=== PATIENT | female | born 1995 | race Caucasian/White ===

== ENCOUNTER → 2017-06-27 15:18 | Outpatient (CLI) | payer MEDICAID, SELFPAY ==
--- NOTE | 2017-06-27 15:23 | EKG12_ITS ---
Test Reason : T1DM Blood Pressure : / mmHG Vent. Rate : 075 BPM Atrial Rate : 075 BPM P-R Int : 142 ms QRS Dur : 084 ms QT Int : 366 ms P-R-T Axes : 046 035 029 degrees QTc Int : 408 ms Normal sinus rhythm Normal ECG Confirmed by PRUDENCIO CRUZ, CHANO ([id number]), online content editor NITZA CHOI ([id number]) on 06/28/2017 1:54:55 PM Referred By: JANAY WALLACE Confirmed By:CHANO FLANNERY MD
== END ==
PROVIDERS: Family Provider Family Medicine; PCP Family Medicine
DX: E10.9 Type 1 diabetes mellitus without complications (principal)
CPT/HCPCS: 93005

== ENCOUNTER → 2017-07-06 16:23 | Outpatient (CLI) | payer MEDICAID, SELFPAY ==
[2017-07-06 18:19] LABS: Absolute Lymphocyte Count 1.69 X10^3/ul (0.83-4.51); Absolute Neutrophil Count 6.6 X10^3/uL (2.0-7.7); Basophil# 0.01 X10^3/uL; Basophil% 0.1 % (0-1); Eosinophil# 0.09 X10^3/uL; Hematocrit 36.1 % (37-47); Lymphocyte # 1.69 X10^3/ul (4.0); Mean Corp Hgb Conc 33.2 g/gl (32-36); Mean Corpuscular Hgb 28.1 pg (27.0-32.0); Mean Corpuscular Volume 84.5 fL (81-99); Mean Platelet Vol. 10.6 fl (6.2-12.0); Monocyte# 0.44 X10^3/uL; Monocyte% 4.9 % (0-10); Neutrophil # 6.63 X10^3/uL (2.7-7.7); Neutrophil % 74.7 % (47-70); Platelet Count 299 K/mm3 (150-450); RBC Distribution Width SD 42.4 fl (35.1-43.9); Red Blood Count 4.27 M/mm3 (4.2-5.4); White Blood Count 8.9 K/mm3 (4.4-11.0)
[2017-07-06 18:20] LABS: Color, Urine Yellow (Yellow); Glucose, Dipstick 250 mg/dl (Normal); Ketone-Dipstick Negative (Negative); Leukocyte Esterase-Dipstick 500 /ul (Negative); Nitrite-Dipstick Negative (Negative); Occult Blood-Urine 10 /ul (Negative); Protein-Dipstick 15 mg/dl (Negative); Specific Gravity, Urine 1.025 (1.002-1.030); Urine Bilirubin Dipstick Negative (Negative); Urine Clarity Cloudy (Clear); Urine Urobilinogen Normal (Normal)
[2017-07-06 18:26] LABS: POSITIVE COUNT NO; POSITIVE DIFFERENTIAL NO; POSITIVE MORPHOLOGY NO
[2017-07-06 18:37] LABS: COTININE Drug Screen Negative (<200 ng/mL); Free T3 2.3 pg/mL (2.18-3.98); T4 Free Direct 0.92 ng/dL (0.76-1.46); Thyroid Stim Hormone (TSH) 2.23 uIU/mL (0.358-3.74)
[2017-07-06 18:47] LABS: Amphetamine Urine VISTA NEGATIVE (<1000 ng/mL); Barbiturate Urine VISTA NEGATIVE (< 200 ng/mL); Benzodiazepine Urine VISTA NEGATIVE (< 200 ng/mL); Cocaine Urine VISTA NEGATIVE (< 300 ng/mL); Ecstacy Urine VISTA NEGATIVE (< 500 ng/mL); Methadone Urine VISTA NEGATIVE (< 300 ng/mL); PCP Urine VISTA NEGATIVE (< 25 ng/mL); THC Urine VISTA NEGATIVE (< 50 ng/mL); Vista UDS pH Range 5
[2017-07-06 19:33] LABS: HIV - WCH Non-Reactive (Nonreactive); Rubella IgG 27.7 IU/mL
[2017-07-06 21:31] LABS: Chlamydia Trachomatis by PCR POSITIVE (Negative); Neisserai gonorrhoeae by PCR Negative (Negative)
[2017-07-06 21:32] LABS: Probe Check PASS
[2017-07-08 07:08] LABS: Prenatal RPR NONREACTIVE (NONREACTIVE)
[2017-07-08 14:59] LABS: HEPATITIS B SURFACE AG Negative (Negative); Hep C Antibodies <0.1 s/co ratio (0.0-0.9)
[2017-07-11 15:41] LABS: HPV Reflexed? NOT INDICATED
== END ==
PROVIDERS: Visit Provider Obstetrics & Gynecology
DX: Z34.82 Encounter for supervision of other normal pregnancy, second trimester (principal); Z32.01 Encounter for pregnancy test, result positive; Z11.3 Encounter for screening for infections with a predominantly sexual mode of transmission; Z3A.00 Weeks of gestation of pregnancy not specified
CPT/HCPCS: 36415; 80307; 81002; 84439; 84443; 84481; 85025; 86703; 86762; 86803; 87340; 87491; 87591; 88175; G0145

== ENCOUNTER → 2017-08-23 13:54 | Outpatient (CLI) | payer MEDICAID, SELFPAY ==
[2017-08-23 17:33] LABS: Chlamydia Trachomatis by PCR Negative (Negative); Neisserai gonorrhoeae by PCR Negative (Negative); Probe Check PASS; Sample Adequacy Control PASS; Specimen Processing Control PASS
== END ==
PROVIDERS: Visit Provider Obstetrics & Gynecology
DX: Z11.3 Encounter for screening for infections with a predominantly sexual mode of transmission (principal); Z86.19 Personal history of other infectious and parasitic diseases
CPT/HCPCS: 87491; 87591

== ENCOUNTER 2017-11-25 18:28 | Emergency (ER) | payer MEDICAID, SELFPAY ==
[2017-11-25 18:29] VITALS: BP 130/79; PULSE 89; RESP 18; TEMP 36.9; O2SAT 99; BMI 31.6
--- NOTE | 2017-11-25 18:39 | ED.RN ---
CALLED FOR EKG PER RN REQUEST, PULLED OLD EKG'S FOR
--- NOTE | 2017-11-25 19:02 | EKG12_ITS ---
Test Reason : CP Blood Pressure : / mmHG Vent. Rate : 136 BPM Atrial Rate : 136 BPM P-R Int : 120 ms QRS Dur : 064 ms QT Int : 286 ms P-R-T Axes : 042 026 028 degrees QTc Int : 430 ms Sinus tachycardia Otherwise normal ECG Confirmed by ADEEL CRUZ, OJ ([id number]), research editor NITZA CHOI ([id number]) on 11/29/2017 1:50:24 PM Referred By: TAMIKA Confirmed By:OJ DEINS MD
--- NOTE | 2017-11-25 19:04 | ED.RN ---
upon arrival to er, pt states that discharge and pain were typical pain and discharge, pt also stated i don't think i am going into labor, i am having chest pain and shortness of breath. because of these complaints pt was checked into er to be evaluated.
[2017-11-25 19:14] LABS: Absolute Lymphocyte Count 1.58 X10^3/ul (0.83-4.51); Absolute Neutrophil Count 6.9 X10^3/uL (2.0-7.7); Basophil# 0.01 X10^3/uL; Basophil% 0.1 % (0-1); Eosinophil# 0.09 X10^3/uL; Hematocrit 30.4 % (37-47); Hemoglobin 9.6 g/dl (12.0-15.0); Lymphocyte # 1.58 X10^3/ul (4.0); Lymphocyte % 17.2 % (19-41); Mean Corp Hgb Conc 31.6 g/gl (32-36); Mean Corpuscular Hgb 22.7 pg (27.0-32.0); Mean Corpuscular Volume 71.9 fL (81-99); Mean Platelet Vol. 11.7 fl (6.2-12.0); Monocyte# 0.56 X10^3/uL; Monocyte% 6.1 % (0-10); Neutrophil # 6.89 X10^3/uL (2.7-7.7); Neutrophil % 75.3 % (47-70); Platelet Count 216 K/mm3 (150-450); RBC Distribution Width CV 13.9 % (11.6-14.6); RBC Distribution Width SD 35.5 fl (35.1-43.9); Red Blood Count 4.23 M/mm3 (4.2-5.4); White Blood Count 9.2 K/mm3 (4.4-11.0)
[2017-11-25 19:16] LABS: Differential Indicated SCAN CRITERIA MET; POSITIVE COUNT NO; POSITIVE DIFFERENTIAL NO; POSITIVE MORPHOLOGY YES
--- NOTE | 2017-11-25 19:20 | RAD_ITS ---
STUDY: X-RAY CHEST REASON FOR EXAM: Female, 22 years old. Chest pain TECHNIQUE: Frontal view of the chest COMPARISON: 09/10/2016 FINDINGS: The lungs are clear. There are no pleural effusions. There is no pneumothorax. The heart is normal in size. The visualized osseous structures are within normal limits. RAD/Chest 1 View (Portable) IMPRESSION: No acute thoracic pathology. Electronically Signed: Dre Maki, at 19:53 EDT Tel , Service support ,
[2017-11-25 19:21] LABS: D-Dimer Quantitative (DVT/PE) 1.14 FEU/ug/m (0.27-0.49)
--- NOTE | 2017-11-25 19:21 | ED.RN ---
MD AWARE OF D-DIMER 1.14.
[2017-11-25 19:31] LABS: Anion Gap 9 (5-15); BUN 8 mg/dL (7-18); BUN/Creat Ratio 15.8 RATIO (10-20); Calcium,Total 8.4 mg/dL (8.5-10.1); Chloride 106 mmol/L (98-107); Creatinine, Serum 0.51 mg/dL (0.55-1.02); EST Glomerular Filtration Rate 160 mL/min (>60); Est Glom Filt Rate - Afr Amer 194 mL/min (>60); Estimated Creatinine Clearance 168.26 ml/min; Glucose 120 mg/dL (74-106); Potassium 3.9 mmol/L (3.5-5.1); Sodium Level 139 mmol/L (136-145)
[2017-11-25 19:43] LABS: Differential Comment SCANNED
[2017-11-25 19:44] LABS: Anisocytosis 1+; Hypochromasia RARE; Microcytosis 1+; Polychromasia RARE
[2017-11-25 19:49] LABS: BNP,B-Type NATRIURETIC PEPTIDE 57.4 pg/mL (0-100)
[2017-11-25] MEDS: 0.9% Normal Saline 1,000 ML 150 ML IV (19:51)
[2017-11-25 20:00] VITALS: BP 113/78; PULSE 88; RESP 18; O2SAT 92
--- NOTE | 2017-11-25 20:18 | CT_ITS ---
STUDY: CTA CHEST REASON FOR EXAM: Female, 22 years old. Pain. Evaluate for pulmonary and was. RADIATION DOSAGE (If Supplied By Facility): CTDIvol = ( 15.61 ) mGy, DLP = ( 594.91 ) mGycm TECHNIQUE: The examination was performed with the intravenous administration of 100 ml of Isovue 370 contrast material. Post-processing of the angiographic images was performed, with multiplanar reformation and 3D reconstruction. Individualized dose optimization techniques were used for this CT. COMPARISON: None. FINDINGS: There are no filling defects within the pulmonary arteries to suggest pulmonary embolus. There is no evidence of thoracic aortic aneurysm or dissection. The heart and pericardium are within normal limits. There is no thoracic lymphadenopathy. There is a trace right pleural effusion. There is no left-sided effusion. There are no pulmonary infiltrates. There is no pneumothorax. Images through the upper abdomen demonstrate a soft tissue mass in the mid abdomen and this may represent an enlarged uterus. Correlation with the patient's history is recommended. There is a small hiatal hernia. There are no destructive osseous lesions. CT/CTA Chest W/WO Contrast IMPRESSION: No evidence of pulmonary embolus. No evidence of thoracic aortic aneurysm or dissection. Trace right pleural effusion. Otherwise, clear lungs. Soft tissue mass in the abdomen which is not fully visualized on this study. This may represent an enlarged uterus and correlation with the patient's history is recommended. Small hiatal hernia. Electronically Signed: Dre Maki, at 21:01 EDT Tel , Service support ,
--- NOTE | 2017-11-25 20:46 | SUR.OPER ---
At 1937 this RN in to see patient, placed on EFM and pt placed in semi fowlers position. Pt to L side at 194 due to minimal variability. Variability remains minimal but movement audible. 1952 pt moved to right side for continued minimal variability, which became moderate. Pt catherine q2-4 minutes, palpating mild per this RN. Pt reports that pain at worst 6-10 and able to converse with nurse and family without pausing or grimacing. Pt reports good movement and states she has had plenty of water to drink today. At 2009, call placed to Dr. Steele-informed of minimal variability which became moderate with position change. FHR baseline of 125 and NST reactive. Informed that contractions every 2-4 minutes and palpating mild and pt rating 6/10. Dr. Steele states that ED should continue care of pt and if pt cleared and still having painful contractions, she may come to OB and continue to be monitored.
--- NOTE | 2017-11-25 20:49 | NURSING ---
@1902 Dr Steele called unit, patient in ER for chest pain. Orders recieved for RN to take monitor up and obtain reactive NST at this time. Monitor contraction pattern and report to doctor.
[2017-11-25 21:10] VITALS: BP 106/79; PULSE 84; RESP 18; O2SAT 96
--- NOTE | 2017-11-25 22:10 | ED.VISSUMM ---
- ER Visit Summary Date of Service: 11/25/17 Chief Complaint: Chest pain and History of Present Illness: The patient is a [address] Romero and Dr. Vu. She reports that she has chest pain that began this morning. It is a stabbing calming cramping pain that lasts hours at a time. Is 7 out of 10 worst 510 currently. Is worsened by movement of her arm or her toes or so. Does not seem to be worsened by deep breathing. She reports is relieved by laying down. She reports pain makes her nauseated, but she has not vomited. Also made her short of breath and sweaty. Patient denies any family or personal history of DVT. No ankle swelling or calf pain. Patient is a at 35 weeks and 3 days . She reports that she has abdominal cramping that comes and goes. Last approximately 60 seconds and occurs every 7-10 minutes. She reports that she has had a white discharge from since this morning as well. She denies any gush of water or break of her fluid. Physical Examination: Vitals: Stable. Afebrile. General: Well-nourished and well-developed. Head: Normocephalic atraumatic. Neck: Supple, no lymphadenopathy. No JVD. Nontender. Cardiovascular: Regular rate and rhythm. No murmurs. Respiratory: No respiratory distress. Clear to auscultation bilaterally. Breast exam: Approximately 4 cm in diameter mass in the left breast left lower quadrant. There is no surrounding erythema, induration, or tenderness to palpation to suggest an infectious etiology. Abdominal: Soft, nontender, nondistended, normal bowel sounds. No guarding, rebound, or peritoneal signs. Gravid uterus. Back: Nontender. Extremities: Nontender, no edema. Skin: Normal color, no rash. Neurologic: Alert and oriented ?3. Cranial nerves II through XII are intact. Normal strength and sensation. Psych: Normal affect. Test Results: Chest x-ray is normal. EKG is sinus tach at 136 with no acute changes. Troponin is negative. PT HAND [employer]ANER is 57.4. D-dimer is 1.14. Chem-7 is more for creatinine 0.51, glucose 120, calcium of 8.4. CBC is marked for an H&H 9.6 and 30.4, segmented neutrophils 75, lymphs at 17. CTA of the chest shows a trace right pleural effusion. No evidence of PE or dissection. Emergency Department Course and Treatment: Patient reports that she had a mammogram for this mass in her left breast approximately 1 year ago. It seems to have increased in size throughout her . States that she has not talked to Dr. Iverson about this. Patient was discussed with Dr. Steele and has been monitored in the emergency department by labor and delivery. Treatment Plan: Patient reports that the abdominal cramping that she had is essentially resolved. She will be discharged instructions to use Tylenol for pain. Return for worsening abdominal pain. Follow-up with Dr. Iverson as previously scheduled. Speak with him about the mass in her left breast in the further evaluation of this. Disposition: To home in improved and stable condition. Impression: 1. Atypical chest pain. 2. Third trimester . 3. Left breast mass. This note was generated with [employer] dictation software. It may contain incorrect words, spelling, and punctuation that were not noted in review of the chart prior to signing ED Disposition - Plan for ED Patient: Disposition: Home or Assisted Living Chief Complaint: Chest Pain Instructions: ED Breast Mass Uncertain Cause, ED Chest Pain Atypical Unkn Cause Referrals: Abilio Iverson MD [STAFF PHYSICIAN] - Keep Arthur appointment
[2017-11-25 22:20] VITALS: BP 116/70; PULSE 70; RESP 14; O2SAT 99
--- NOTE | 2017-11-26 06:26 | OB.TRI.NOTE ---
History of Present Illness Date of Service: 11/25/17 Was patient seen by the physician?: No Reason For Visit: CHEST PAIN Date of Service: 11/25/17 Final RADHA Source: US <20 weeks Gestational age: 35 3/7 wk History of Present Illness: 22 yo gravid female presented to [facility] ED with CC of chest pain. Evaluated there for chest pain and workup neg for PE. All work up for chest pain negative. Also c/o abdominal pain, cramping. Nurse from OB dept sent to monitor for NST, and labor. Allergies No Known Allergies Allergy (Verified 11/25/17 18:32) Physical Exam Vitals: Vital Signs Temp Pulse Resp BP Pulse Ox 98.5 F 70 14 116/70 99 11/25/17 18:29 11/25/17 22:20 11/25/17 22:20 11/25/17 22:20 11/25/17 22:20 NST - FHR Rate Baby A Variability:: Moderate Accelerations:: 10 x 10 Decelerations:: None, Early NST Reactive:: Yes, Appropriate for gestational age FHR Category:: Category I Uterine Activity:: irregular UCs, mild. uterine irritability. Impression/Plan 35 3/7 wk EGA Chest pain, neg workup. reactive NST False labor, irreg and mild UCs. Offered pt to go to OB dept for continued monitoring for labor, or may go home and rest, tylenol or tylenol pm for pain and rest. Elected to go home Keep next ofc appt with Dr. Iverson. return to [facility] if increased signs /symptoms of labor.
--- NOTE | 2017-11-26 06:31 | OB.TRI.HP_ITS ---
History of Present Illness Date of Service: 11/25/17 Was patient seen by the physician?: No Reason For Visit: CHEST PAIN Date of Service: 11/25/17 Final RADHA Source: US <20 weeks Gestational age: 35 3/7 wk History of Present Illness: 22 yo gravid female presented to [facility] ED with CC of chest pain. Evaluated there for chest pain and workup neg for PE. All work up for chest pain negative. Also c/o abdominal pain, cramping. Nurse from OB dept sent to monitor for NST, and labor. Allergies No Known Allergies Allergy (Verified 11/25/17 18:32) Physical Exam Vitals: Vital Signs Temp Pulse Resp BP Pulse Ox 98.5 F 70 14 116/70 99 11/25/17 18:29 11/25/17 22:20 11/25/17 22:20 11/25/17 22:20 11/25/17 22:20 NST - FHR Rate Baby A Variability:: Moderate Accelerations:: 10 x 10 Decelerations:: None, Early NST Reactive:: Yes, Appropriate for gestational age FHR Category:: Category I Uterine Activity:: irregular UCs, mild. uterine irritability. Impression/Plan 35 3/7 wk EGA Chest pain, neg workup. reactive NST False labor, irreg and mild UCs. Offered pt to go to OB dept for continued monitoring for labor, or may go home and rest, tylenol or tylenol pm for pain and rest. Elected to go home Keep next ofc appt with Dr. Iverson. return to [facility] if increased signs /symptoms of labor.
== END 2017-11-25 22:21 | disposition home or self-care (01) ==
PROVIDERS: Emergency Provider Emergency Medicine; Family Provider Family Medicine; PCP Family Medicine
DX: O47.03 False labor before 37 completed weeks of gestation, third trimester (principal); R07.89 Other chest pain; O92.29 Other disorders of breast associated with pregnancy and the puerperium; R06.00 Dyspnea, unspecified; R11.0 Nausea; O24.013 Pre-existing type 1 diabetes mellitus, in pregnancy, third trimester; E10.9 Type 1 diabetes mellitus without complications; Z79.4 Long term (current) use of insulin; Z3A.35 35 weeks gestation of pregnancy
CPT/HCPCS: 71045; 71275; 80048; 83880; 84484; 85025; 85379; 93005; 96360; 96361; 99284; J7030; Q9967; A4216

== ENCOUNTER → 2017-11-30 11:47 | Outpatient (CLI) | payer MEDICAID, SELFPAY ==
[2017-11-30 17:13] LABS: Group B Strep DNA By PCR POSITIVE (Negative); Probe Check PASS
== END ==
PROVIDERS: Visit Provider Obstetrics & Gynecology
DX: Z36.85 Encounter for antenatal screening for Streptococcus B (principal)
CPT/HCPCS: 87653

== ENCOUNTER 2017-12-04 00:40 | Outpatient (CLI) | payer MEDICAID, SELFPAY ==
[2017-12-04 01:07] VITALS: BMI 33.9
[2017-12-04 01:34] LABS: ROM Internal Control Test YES-OK TO RESULT pt. (Internal QC); ROM Patient Test Negative (Negative)
--- NOTE | 2017-12-04 19:19 | OB.TRI.NOTE ---
History of Present Illness Date of Service: 12/04/17 Was patient seen by the physician?: No Reason For Visit: R/O LABOR Date of Service: 12/04/17 Final RADHA: 12/27/17 Final RADHA Source: US <20 weeks Gestational age: 36 Weeks and 5 Days History of Present Illness: 36+ week intrauterine with type 1 diabetes presents with contractions to labor and delivery to rule out labor. care also remarkable for bipolar disorder. Her type 1 diabetes is typically poorly controlled. Allergies No Known Allergies Allergy (Verified 11/25/17 18:32) NST - FHR Rate Baby A NST Reactive:: Yes FHR Category:: Category I Impression/Plan 36+ week intrauterine with transient labor. Has type 1 diabetes and comfortable with mild contractions noted on monitor but no cervical change after observation. Reactive nonstress test, patient wants to go home. Will release with routine instructions and follow-up.
== END 2017-12-04 01:50 | disposition home or self-care (01) ==
LOC: WPOUT 01:05 → WP 01:06
PROVIDERS: Family Provider Family Medicine; PCP Family Medicine; Visit Provider Obstetrics & Gynecology
DX: O24.013 Pre-existing type 1 diabetes mellitus, in pregnancy, third trimester (principal); E10.9 Type 1 diabetes mellitus without complications; O99.343 Other mental disorders complicating pregnancy, third trimester; F31.9 Bipolar disorder, unspecified; Z79.82 Long term (current) use of aspirin; Z79.4 Long term (current) use of insulin; Z79.899 Other long term (current) drug therapy; Z3A.36 36 weeks gestation of pregnancy
CPT/HCPCS: 59025; 59050; 84112; 99218; G0378

== ENCOUNTER 2017-12-07 10:10 | Inpatient (IN) | payer MEDICAID, SELFPAY ==
[2017-12-07] VITALS (16 sets, daily range): BP systolic 99–147; BP diastolic 49–80; PULSE 63–78; RESP 14–20; TEMP 35.9–37; O2SAT 96–100; BMI 34.1
[2017-12-07] MEDS: Lactated Ringers 1,000 ML 999 ML IV (10:40)
[2017-12-07 11:00] LABS: Bedside Glucose 178 mg/dL (70-110)
--- NOTE | 2017-12-07 11:09 | OP.PCM_ITS ---
Problem List (1) Type 1 diabetes mellitus affecting in third trimester, antepartum Status: Chronic Report of Operation Date of Procedure: 12/07/17 Pre-Operative Diagnosis: Poorly controlled Type 1 diabetes affecting , suspected macrosomia Post-Operative Diagnosis: Same Surgery/Procedure Performed:: Primary Low Transverse Section Description of Surgical Findings:: Polyhydramnios noted. Live female in vertex presentation. weight 4235 grams (9lbs 5 oz). Apgars 8/8. Normal appearing uterus, ovaries, and fallopian tubes. film touch up inspector: Elsa Rios Type of Anesthesia:: Spinal Anesthesiologist: Dane Adhikari Special Medications: none Specimen's removed: placenta Drains: rashid Estimated Blood Loss (mL): 600cc Fluids Replaced: 1500cc LR Description of Procedure: Chelsey was scheduled for a primary delivery secondary to poorly controlled Type 1 diabetes and suspected macrosomia with latest ultrasound showing fetus at greater than 4500 grams estimated weight. She understands the indications for this delivery and the risks and benefits of same. She was taken to the OR with IV running. She was given 2 grams of Ancef intravenously prior to the procedure. Spinal anesthesia was then introduced without complication. She was then prepped and draped in the supine position with a leftward tilt. A rashid catheter was placed. SCDs were in place and operational from preop through the case and into recovery. Once anesthesia was deemed adequate she a Pfannensteil skin incision was made approximately 2 cm above the symphysis pubis. The underlying subcutaneous tissue was dissected down to the level of the fascia using blunt and sharp dissection. The fascia was then incised in the midline and this incision was extended bilaterally using the Diehl scissors. The upper portion of the fascia was then grasped with two Marlen clamps elevated and the rectus muscles dissected off with sharp and blunt dissection. In a similar fashion the rectus muscles were dissected off the lower fascia. The rectus muscles were then in the midline, the peritoneum identified and entered sharply. The peritoneal defect was enlarged using blunt retraction. A bladder blade was then placed. The vesicouterine peritoneum was then entered sharply and a bladder flap created. The bladder blade was then replaced. The lower uterine incision was then incised in a transverse fashion. Once the cavity was entered this defect was extended using blunt lateral and superior traction. The bladder blade was removed and the baby's head was delivered atraumatically followed by the body. Delayed cord clamping was employed. The nose and mouth were suctioned with a bulb suction and the baby was handed off to the waiting nursing staff for evaluation. The placenta was then delivered manually. The uterus was exteriorized and cleared of all clot and membranes. The uterine incision was then closed in two layers with #1 Vicryl suture. The posterior cul de sac and gutters were cleared of all clot and fluid. The uterus was returned to the abdomen. The uterine incision was reinspected and found to be hemostatic. The peritoneum was then closed with 2-0 Vicryl. The rectus muscles were reapproximated with 0- Vicryl. The fascia was then closed with #1 Stratofix suture. The subcutaneous tissue was closed with a running stitch of 2 -0 Vicryl. The skin was closed with a subcuticular stitch of 4-0 Monocryl. Grafts/Implants Used: none - Complications none - Admit VTE Documentation VTE Present on Admission: No VTE Mechan Device Prophylaxis: SCD's VTE Pharm Prophylaxis ordered?: No
[2017-12-07 11:10] LABS: Absolute Lymphocyte Count 2.42 X10^3/ul (0.83-4.51); Basophil# 0.02 X10^3/uL; Basophil% 0.2 % (0-1); Eosinophil# 0.16 X10^3/uL; Eosinophils% 1.5 % (0-5); Hematocrit 29.7 % (37-47); Hemoglobin 9.1 g/dl (12.0-15.0); Lymphocyte # 2.42 X10^3/ul (4.0); Lymphocyte % 23.2 % (19-41); Mean Corp Hgb Conc 30.6 g/gl (32-36); Mean Corpuscular Hgb 21.6 pg (27.0-32.0); Mean Corpuscular Volume 70.5 fL (81-99); Mean Platelet Vol. 11.9 fl (6.2-12.0); Monocyte# 0.77 X10^3/uL; Monocyte% 7.4 % (0-10); Neutrophil # 7.02 X10^3/uL (2.7-7.7); Neutrophil % 67.1 % (47-70); Platelet Count 222 K/mm3 (150-450); RBC Distribution Width CV 14.6 % (11.6-14.6); RBC Distribution Width SD 36.1 fl (35.1-43.9); Red Blood Count 4.21 M/mm3 (4.2-5.4); White Blood Count 10.5 K/mm3 (4.4-11.0)
[2017-12-07 11:11] LABS: Differential Indicated SCAN CRITERIA MET; POSITIVE COUNT NO; POSITIVE DIFFERENTIAL NO; POSITIVE MORPHOLOGY YES
--- NOTE | 2017-12-07 11:18 | NURSING ---
Accucheck 178 dr bhakta aware no orders for at this time
[2017-12-07 11:27] LABS: International Normalized Ratio 0.9; Partial Thromboplast Time 25.8 Seconds (24.1-36.2); Prothrombin Time (Protime)PT. 12.4 SECONDS (11.7-14.9)
[2017-12-07] MEDS: Lactated Ringers 1,000 ML 150 ML IV (11:50)
[2017-12-07] MEDS: Sodium Citrate/Citric Acid 30 ML UDC PO (11:58)
[2017-12-07] MEDS: Cefazolin 2 GM in 0.9% Normal Saline 100 ML IV (11:59)
[2017-12-07] MEDS: Oxytocin 30 units/NS 500 ml 30 UNITS/500 ML IV.SOLN 167 UNITS IV (12:38)
[2017-12-07] MEDS: Insulin NPH Human 100 UNITS/ML PEN 40 UNITS SC ×2 (14:06→21:45)
[2017-12-07] MEDS: Lactated Ringers 1,000 ML 100 ML IV (14:44)
[2017-12-07 14:46] LABS: Bedside Glucose 177 mg/dL (70-110)
--- NOTE | 2017-12-07 14:49 | NURSING ---
accucheck 189
[2017-12-07 14:55] LABS: Bedside Glucose 189 mg/dL (70-110)
[2017-12-07] MEDS: Insulin Lispro 100 UNIT/ML INSULN.PEN 10 UNIT SC (16:02)
--- NOTE | 2017-12-07 16:40 | NURSING ---
up in wheel chair to go to see baby in scn
--- NOTE | 2017-12-07 17:55 | NURSING ---
taken to to special care to see baby, tolerated well
[2017-12-07] MEDS: Ondansetron ODT 4 MG Tablet PO (18:07)
[2017-12-07] MEDS: Ketorolac 30 MG/ML Syringe IV (18:51)
[2017-12-07] MEDS: Cefazolin 1 GM/50 ML BAG IV (19:48)
[2017-12-07 22:00] LABS: Bedside Glucose 134 mg/dL (70-110)
[2017-12-08] VITALS (12 sets, daily range): BP systolic 109–129; BP diastolic 68–86; PULSE 67–92; RESP 14–18; TEMP 36.1–37; O2SAT 94–100
[2017-12-08] MEDS: Ketorolac 30 MG/ML Syringe IV ×4 (01:20→17:47)
[2017-12-08] MEDS: Lactated Ringers 1,000 ML 100 ML IV (01:21)
[2017-12-08] MEDS: 0.9% Saline Lock 10 ML Syringe IV ×4 (01:21→23:42)
[2017-12-08] MEDS: Cefazolin 1 GM/50 ML BAG IV (03:50)
[2017-12-08 06:09] LABS: Hematocrit 26.1 % (37-47); Mean Corp Hgb Conc 30.7 g/gl (32-36); Mean Corpuscular Hgb 21.9 pg (27.0-32.0); Mean Corpuscular Volume 71.3 fL (81-99); Mean Platelet Vol. 10.7 fl (6.2-12.0); Platelet Count 208 K/mm3 (150-450); RBC Distribution Width CV 14.4 % (11.6-14.6); RBC Distribution Width SD 35.9 fl (35.1-43.9); Red Blood Count 3.66 M/mm3 (4.2-5.4); White Blood Count 9.7 K/mm3 (4.4-11.0)
[2017-12-08 06:11] LABS: Scan Indicated on CBC? Y/N YES- FLAGS NOTED
--- NOTE | 2017-12-08 06:33 | NURSING ---
Accucheck 57. Patient denies feeling symptomatic of low blood sugar. Snack given. Blood sugar to be rechecked.
[2017-12-08 06:35] LABS: Bedside Glucose 57 mg/dL (70-110)
[2017-12-08 06:37] LABS: Differential Comment SCANNED
[2017-12-08 07:10] LABS: Bedside Glucose 81 mg/dL (70-110)
--- NOTE | 2017-12-08 07:20 | PCM.PN.OB ---
Subjective: Some soreness but pain relatively well controlled. Objective: Afeb VSS. Hgb stable. I/O appropriate. FS glucose this morning 57 before breakfast-asymptomatic - Physical Exam General: Alert, Oriented x3, Cooperative, No apparent distress Lungs: Clear to auscultation, Normal air movement Cardiovascular: Regular rate, Regular Rhythm Abdomen: Soft, Non Tender, Non-Distended, - - Incision dressing dry Extremities: No edema, No Calf Tenderness Skin: No rashes Neurological: Neuro grossly intact Psych/Mental Status: Normal Affect Comment: Lochia light Vital Signs Temp Pulse Resp BP Pulse Ox 98.0 F 72 16 123/71 H 98 12/08/17 05:38 12/08/17 05:38 12/08/17 05:38 12/08/17 05:38 12/08/17 05:38 Oxygen Delivery Method Room Air Weight: 218 lb Body Mass Index (BMI) 34.1 Finger Stick Blood Glucose 216 Intake and Output for Last 24 Hours 12/06/17 12/07/17 12/08/17 23:59 23:59 23:59 Intake Total 2912 / 2912 2890 / 2890 Output Total 150 / 150 1200 / 1200 Balance 2762 / 2762 1690 / 1690 Laboratory Tests Past 24 Hrs 12/07/17 12/07/17 12/07/17 10:40 10:40 10:40 WBC 10.5 RBC 4.21 Hgb 9.1 L Hct 29.7 L MCV 70.5 L MCH 21.6 L MCHC 30.6 L RDW 14.6 RDW Differential 36.1 Plt Count 222 MPV 11.9 Immature Gran % (Auto) 0.600 Neut % (Auto) 67.1 Lymph % (Auto) 23.2 [place] % (Auto) 7.4 Eos % (Auto) 1.5 Baso % (Auto) 0.2 Absolute Neuts (auto) 7.0 Absolute Lymphs (auto) 2.42 Total Counted Not Reportable Differential Comment COMMENT PT 12.4 INR 0.9 APTT 25.8 Blood Type A POSITIVE Antibody Screen NEGATIVE 12/08/17 05:30 WBC 9.7 RBC 3.66 L Hgb 8.0 L Hct 26.1 L MCV 71.3 L MCH 21.9 L MCHC 30.7 L RDW 14.4 RDW Differential 35.9 Plt Count 208 MPV 10.7 Immature Gran % (Auto) Neut % (Auto) Lymph % (Auto) [place] % (Auto) Eos % (Auto) Baso % (Auto) Absolute Neuts (auto) Absolute Lymphs (auto) Total Counted Differential Comment SCANNED PT INR APTT Blood Type Antibody Screen POC Glucose 12/08/17 12/08/17 12/07/17 07:06 06:27 21:43 POC Glucose 81 57 L 134 H 12/07/17 12/07/17 12/07/17 14:48 13:53 10:51 POC Glucose 189 H 177 H 178 H Medical Necessity - Tobacco Use Smoking Status: Never smoker Assessment/Plan Doing well on POD#1 s/p primary C/S. Will continue to monitor glucose levels and adjust insulin appropriately. Encouraged to eat breakfast, lunch and dinner.
[2017-12-08] MEDS: Insulin Lispro 100 UNIT/ML INSULN.PEN 10 UNIT SC ×2 (09:16→12:35)
[2017-12-08] MEDS: Insulin NPH Human 100 UNITS/ML PEN 40 UNITS SC ×2 (09:20→21:51)
[2017-12-08 11:01] LABS: Bedside Glucose 83 mg/dL (70-110)
[2017-12-08] MEDS: Prenatal Vits Tablet 1 TABLET PO (12:28)
[2017-12-08] MEDS: Sertraline 100 MG Tablet 200 MG PO (12:28)
[2017-12-08] MEDS: Senna/Docusate Sodium 1 Tablet PO (12:45)
[2017-12-08 12:46] LABS: Bedside Glucose 148 mg/dL (70-110)
[2017-12-08] MEDS: oxyCODONE 5 MG Tablet PO ×3 (12:46→23:42)
[2017-12-08 19:31] LABS: Bedside Glucose 51 mg/dL (70-110)
[2017-12-08 21:51] LABS: Bedside Glucose 96 mg/dL (70-110)
[2017-12-09 02:00] VITALS: BP 138/86; PULSE 81; RESP 16; TEMP 36.7; O2SAT 97
[2017-12-09] MEDS: oxyCODONE 5 MG Tablet PO ×3 (06:48→18:54)
[2017-12-09] MEDS: Senna/Docusate Sodium 1 Tablet PO (06:49)
[2017-12-09] MEDS: Ibuprofen 600 MG Tablet PO ×3 (07:38→22:23)
[2017-12-09] MEDS: Acetaminophen 500 MG Tablet 1000 MG PO (07:57)
[2017-12-09 08:00] VITALS: BP 129/79; PULSE 70; RESP 18; TEMP 36.9
[2017-12-09 08:10] LABS: Bedside Glucose 99 mg/dL (70-110)
--- NOTE | 2017-12-09 08:33 | PCM.PN.OB ---
Subjective: No specific complaints. Objective: AFeb VSS. FS glucose measurements appropriate. - Physical Exam General: Alert, Oriented x3, Cooperative, No apparent distress Lungs: Clear to auscultation, Normal air movement Cardiovascular: Regular rate, Regular Rhythm Abdomen: Soft, Non Tender, Non-Distended, - - Incision dressing dry Extremities: No edema Skin: No rashes Neurological: Neuro grossly intact Psych/Mental Status: Normal Affect Comment: Bleeding light Vital Signs Temp Pulse Resp BP Pulse Ox 98.0 F 81 16 138/86 H 97 12/09/17 02:00 12/09/17 02:00 12/09/17 02:00 12/09/17 02:00 12/09/17 02:00 Oxygen Delivery Method Room Air Weight: 218 lb Body Mass Index (BMI) 34.1 Finger Stick Blood Glucose 216 Intake and Output for Last 24 Hours 12/07/17 12/08/17 12/09/17 23:59 23:59 23:59 Intake Total 2912 / 2912 2890 / 2890 Output Total 150 / 150 1600 / 1600 600 / 600 Balance 2762 / 2762 1290 / 1290 -600 / -600 POC Glucose 12/09/17 12/08/17 12/08/17 08:03 21:46 17:41 POC Glucose 99 96 51 L 12/08/17 12/08/17 12:27 09:08 POC Glucose 148 H 83 Medical Necessity - Tobacco Use Smoking Status: Never smoker Assessment/Plan Doing well on POD#2. Continue routine PO care. Baby in nursery with blood sugar issues.
[2017-12-09] MEDS: Insulin Lispro 100 UNIT/ML INSULN.PEN 10 UNIT SC (10:19)
[2017-12-09] MEDS: Insulin NPH Human 100 UNITS/ML PEN 40 UNITS SC (10:27)
--- NOTE | 2017-12-09 10:38 | NURSING ---
0803 bgt 99. Pt declining insulin at this time. States she is too painful to eat breakfast. Medicated for pain. Will reassess.
--- NOTE | 2017-12-09 10:40 | NURSING ---
0900- Pt continues to decline insulin.
--- NOTE | 2017-12-09 10:43 | NURSING ---
1010-Rn discussed with pt importance of taking insulin and eating. Pt agreed to eat some peanut butter and crackers. Insulin given.
[2017-12-09] MEDS: Sertraline 100 MG Tablet 200 MG PO (11:53)
--- NOTE | 2017-12-09 12:30 | CASEMGMT ---
Social Work Note Referral Site: Labor and Delivery Unit Date of Intervention: Time of Intervention: 1230 Referred by: notification by nursing staff, Reason for referral: baby admitted to [facility] and maternal history of Bipolar disorder and depression. History obtained from: Medical record and patient/mother of baby (JEWELS) Chelsey Talbot. Educated MOB that this gag writer is the social security specialist for [facility] Labor and Delivery Unit, and for continuity of care of families this gag writer provides social work to families while on the SCN. Educated that information gathered from MOB today will be used for [facility] and [facility] records related to this baby's Household composition: MOB reports to live with JEWELS's mother Criss Diaz, and Criss's boyfriend for the last one year. MOB states home situation is safe and adequate, plans to take baby girl Nadeen to this home at discharge. Patient's parent/guardian status: JEWELS is 22 year old single female, and father of baby (FOB) is reported to be John Torres (age 21). MOB reports not currently involved with Nnekar, though Nnekar plans to be involved in this baby's life. Nadeen is the first child for Amir, and the second for MOB. MOB reports current involvement with a audrey named Pop Haynes, whom MOB reports has been with for 3 years now. Pop is 27 years old. MOB's children include: Nadeen (born 12.[birth year]17) Alberta Talbot (born ). - Alberta's father is not involved at this time. Alberta is currently residing with MOB's aunt Evelyn Card, who reportedly has temporary custody of the child for the last year. Medical History: JEWELS is G2, P1 to 2 after delivering Nadeen. MOB reports to have Type I Diabetes since the age of 13. Note, one part of PNC indicates JEWELS is G3, with a terminated in 2016. Today, MOB denies having a third , only two. MOB with later care starting at 14 weeks this , with about 5 visits noted in total. Infant was born at 37 weeks gestation, weighed 9 pounds 5 ounces, apgars 8 and 8 at 1 and 5 minutes of life. . Educational Status: MOB reports obtained GED. MOB denies any issues reading, writing, or with learning comprehension. Health Care Coverage: MOB is covered by [facility] Medicaid. Financial Status: JEWELS does not currently work, has been financially supported this by MOB's mother. MOB reports Criss is willing to continue to support MOB at this time. Childcare/Caregiver(s): MOB will be the primary caregiver to this infant, and reports will have help from family as needed. Transportation: MOB reports to relay on Criss and Criss's boyfriend. Programs/Agencies Involved: MOB reports to have [place]yllis Medicaid through S, reports intent to sign up for WIC, to have interest in Early Head Start program, and has counseling and psychiatry services at [facility]. MOB reports will see Mike Alfaro at [facility] on 01/08/2018. MOB reports to see a counselor Juan at [facility] for substance related treatment. Children Services: MOB reports active case with [facility] ([facility]) Karolina Wang for Alberta. MOB reports the plan is to start reunification in January 2018. Involvement wit [facility] reportedly related to MOB's past drug use history. MOB states Karolina was out 2 days before delivery, and knew MOB would be delivering baby soon. Behavioral Health Issues: Mental Health History: MOB reports history of depression after of Alberta, as well as previous diagnosis of Bipolar disorder and anxiety. MOB currently treated with Zoloft, but reports plan to get on medicine for the Bipolar disorder. Did not start mood stabilizer due to . MOB denies any suicidal thoughts, plans, intent, or past attempts. No reports of thoughts of harm to others. Family History: MOB reports family history of bipolar disorder as well in MOB's grandmother, a sister, and the chart indicates MOB's mother. 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 MOB reports history of marijuana, last use over a year ago. MOB reports past history of narcotic pill usage, which is what let to heroin use. MOB denies any other illicit drug use history including cocaine and methamphetamine. MOB denies tobacco use. Denies alcohol use. MOB denies any herbal or other synthetic type drug use. Drug Screens: Maternal screen on 07.06.2017 negative for drugs of abuse. Family Stressors: MOB is single mother, no current income though living with family who has been supporting MOB financially. MOB recovering from heroin, active children services involvement with reported plan to reunify with older daughter in January. Maternal mental health history, not yet on mood stabilizer, though reports intent to start this soon. Support Systems: MOB reports Criss is great support as well as MOB's aunt Evelyn. MOB identifies [facility] and then reports to have a positive relationship with [facility] worker [place]. Assessment MOB pleasant, cooperative, held good eye contact, and non defensive during conversation with social security specialist. Met with MOB at baby's bedside. MOB was attentive to infant, holding , gentle and appropriate. MOB smiled and gazed at infant, reports to have positive feelings for the baby. MOB does have history of depression, but reports intent to keep up with providers at [facility], reports to have adequate support at home and supports at home are reported to be sober supports. Informed MOB that as MOB has an active case with [facility], will be calling the ongoing worker to alert to new baby, though no current or identified concerns with MOB's care of baby, just so the agency is aware of new child in MOB's care with an ongoing case happening. MOB agrees to an Early Head Start referral for baby. Plan Social work to follow and assist during hospital stay. Will return at later time with resource packet for home going. Will have MOB sign a referral to Early Head Start program. Response to Plan: MOB does express understanding of proposed plan. ABDULAZIZ Claros
[2017-12-09 14:09] VITALS: BP 103/60; PULSE 79; RESP 18; TEMP 36.2; O2SAT 97
[2017-12-09 19:00] LABS: Bedside Glucose 64 mg/dL (70-110)
--- NOTE | 2017-12-09 19:18 | NURSING ---
POC BG 64; pt asymptomatic; snack given; pt states mother is bringing her dinner at 2000; has refused afternoon meals after late breakfast.
[2017-12-09 19:30] VITALS: BP 123/81; PULSE 90; RESP 18; TEMP 36.4; O2SAT 90
--- NOTE | 2017-12-09 22:14 | NURSING ---
Blood glucose 48 prior to late dinner. Pt now eating, will recheck level.
[2017-12-09 22:30] LABS: Bedside Glucose 48 mg/dL (70-110)
[2017-12-09 22:46] LABS: Bedside Glucose 90 mg/dL (70-110)
[2017-12-10 02:30] VITALS: BP 122/75; PULSE 94; RESP 18; TEMP 36.6; O2SAT 94
[2017-12-10 07:45] VITALS: BP 111/64; PULSE 72; RESP 16; TEMP 36.3; O2SAT 95
[2017-12-10] MEDS: Insulin NPH Human 100 UNITS/ML PEN 40 UNITS SC (07:53)
[2017-12-10 07:56] LABS: Bedside Glucose 189 mg/dL (70-110)
--- NOTE | 2017-12-10 08:15 | PCM.PN.OB ---
Subjective: Some soreness but pain reasonably controlled. Bottle feeding. Bleeding light. No symptoms with lower blood pressure. Objective: Afeb VSS - Physical Exam General: Alert, Oriented x3, Cooperative, No apparent distress Lungs: Clear to auscultation, Normal air movement Cardiovascular: Regular rate, Regular Rhythm Abdomen: Soft, Non Tender, Non-Distended, - - Incision dressing dry Extremities: No edema, No Calf Tenderness Skin: No rashes Neurological: Neuro grossly intact Psych/Mental Status: Normal Affect Comment: Lochia light Vital Signs Temp Pulse Resp BP Pulse Ox 97.3 F L 72 16 111/64 95 12/10/17 07:45 12/10/17 07:45 12/10/17 07:45 12/10/17 07:45 12/10/17 07:45 Oxygen Delivery Method Room Air Weight: 218 lb Body Mass Index (BMI) 34.1 Finger Stick Blood Glucose 216 Intake and Output for Last 24 Hours 12/08/17 12/09/17 12/10/17 23:59 23:59 23:59 Intake Total 2890 / 2890 Output Total 1600 / 1600 600 / 600 Balance 1290 / 1290 -600 / -600 POC Glucose 12/10/17 12/09/17 12/09/17 07:43 22:38 22:10 POC Glucose 189 H 90 48 L 12/09/17 18:53 POC Glucose 64 L Medical Necessity - Tobacco Use Smoking Status: Never smoker Assessment/Plan POD#3 s/p primary C/S with Type I DM. Blood sugars have been somewhat labile with mostly low values on current insulin regimen. Not eating well. Encouraged to eat regular meals. Will hold discharge until at least tomorrow as we continue to work out insulin regimen. Baby in special care nursery.
[2017-12-10] MEDS: Senna/Docusate Sodium 1 Tablet PO (10:02)
[2017-12-10] MEDS: oxyCODONE 5 MG Tablet PO ×3 (10:02→22:23)
[2017-12-10] MEDS: Sertraline 100 MG Tablet 200 MG PO (10:02)
[2017-12-10] MEDS: Ibuprofen 600 MG Tablet PO ×2 (12:55→22:21)
[2017-12-10] MEDS: Prenatal Vits Tablet 1 TABLET PO (12:57)
[2017-12-10 13:01] VITALS: BP 122/74; PULSE 70; RESP 18; TEMP 36.3; O2SAT 97
[2017-12-10 13:06] LABS: Bedside Glucose 234 mg/dL (70-110)
[2017-12-10] MEDS: Insulin Lispro 100 UNIT/ML INSULN.PEN 10 UNIT SC ×2 (13:27→17:45)
[2017-12-10 17:55] LABS: Bedside Glucose 183 mg/dL (70-110)
[2017-12-10 22:00] VITALS: BP 125/85; PULSE 86; RESP 16; TEMP 36.2; O2SAT 96
[2017-12-10] MEDS: Insulin NPH Human 100 UNITS/ML PEN 30 UNITS SC (22:14)
[2017-12-10 22:20] LABS: Bedside Glucose 141 mg/dL (70-110)
[2017-12-11 02:00] VITALS: BP 134/80; PULSE 63; RESP 16; TEMP 36.3; O2SAT 96
[2017-12-11] MEDS: Ibuprofen 600 MG Tablet PO (06:10)
[2017-12-11] MEDS: Insulin NPH Human 100 UNITS/ML PEN 30 UNITS SC (08:05)
[2017-12-11 08:10] VITALS: BP 133/86; PULSE 66; RESP 16; TEMP 36.6; O2SAT 96
[2017-12-11 08:20] LABS: Bedside Glucose 125 mg/dL (70-110)
--- NOTE | 2017-12-11 09:59 | PCM.PN.OB ---
Subjective: Some incisional pain. Bleeding light. Baby still in special care due to blood sugar issues. Objective: Afeb VSS Glucose levels labile and not well controlled. - Physical Exam General: Alert, Oriented x3, Cooperative, No apparent distress Lungs: Clear to auscultation, Normal air movement Cardiovascular: Regular rate, Regular Rhythm Abdomen: Soft, Non Tender, Non-Distended, - - Incision dressing dry Extremities: No edema, No Calf Tenderness Neurological: Neuro grossly intact Psych/Mental Status: Normal Affect Comment: Lochia light Vital Signs Temp Pulse Resp BP Pulse Ox 97.8 F 66 16 133/86 H 96 12/11/17 08:10 12/11/17 08:10 12/11/17 08:10 12/11/17 08:10 12/11/17 08:10 Oxygen Delivery Method Room Air Weight: 218 lb Body Mass Index (BMI) 34.1 Finger Stick Blood Glucose 216 Intake and Output for Last 24 Hours 12/09/17 12/10/17 12/11/17 23:59 23:59 23:59 Output Total 600 / 600 Balance -600 / -600 POC Glucose 12/11/17 12/10/17 12/10/17 08:04 22:13 17:43 POC Glucose 125 H 141 H 183 H 12/10/17 12:55 POC Glucose 234 H Medical Necessity - Tobacco Use Smoking Status: Never smoker Assessment/Plan Doing well from postoperative standpoint. Will continue to watch blood sugars tonight in anticipation of discharge tomorrow.
--- NOTE | 2017-12-11 10:11 | DCINST_ITS ---
Discharge Diet: No Restrictions Discharge Activity: Return to Normal Activity, May Not Drive, May not drive while taking narcotic pain medications., May Shower Return to work on:: 01/30/18 May shower in (days): 0 May resume sexual activity in: 4-6 weeks Call your doctor if your incision/area has: Continuous Slow Oozing, Sudden Increased Bleeding, Increased Pain/ Swelling, Increased Redness, Foul Smelling Discharge, Swelling at the incision site Call your doctor if you observe: Fever of 101 or Higher, Inability to urinate, Inability to have a bowel movement, Using more than one pad per hour, Shortness of breath, Chest pain, Calf discomfort, Uncontrolled pain Remove Dressing in (days):: 2 Cleanse incision/area with: Soap & Water Additional Instructions: If you experience any of the following, contact your healthcare provider. * Bleeding that soaks a pad every hour for 2 hours * Fever 100.4 or higher * Unrelieved incision or abdominal pain * Swelling, redness, discharge or bleeding from your incision or episiotomy site * Your incision begins to separate * Problems urinating (including inability to urinate or burning while urinating) . * Visual changes * Severe headache * Flu-like symptoms * Pain or redness in one of both of your breasts * Pain, warmth, tenderness or swelling in your legs, especially the calf area * Frequent nausea and vomiting * Symptoms of depression or anxiety If you experience any of the following, call 911 or go to the nearest Emergency Room. * Chest pain * Problems breathing * Seizure activity * Partial or complete paralysis of a body part, slurred speech, weakness or drooping of the face, or a sudden inability to walk or hold your balance Allergies/Adverse Reactions: Allergies No Known Allergies Allergy (Verified 11/25/17 18:32) Medications to take at Discharge Insulin Aspart [Novolog Flexpen] 1 units SC BID MDD sliding scale 12/04/17 Insulin Glargine,Hum.rec.anlog [Basaglar Kwikpen U-100] 50 unit SQ BID 12/04/17 Pnv 11-Iron Fum-Folic Acid-Om3 [Virt-Efrain Dha Softgel] 1 cap PO DAILY 12/04/17 Sertraline HCl [Zoloft] 200 mg PO DAILY 12/04/17 Ibuprofen 600 mg PO 4X/DAY #30 tab 12/11/17 Insulin NPH Human [Humulin N Pen] 30 units SC BID@0730,2200 #10 pen 12/11/17 Insulin Regular, Human [Humulin R] 5 unit SQ 4X/DAY PRN PRN #4 vial 12/11/17 Oxycodone [Oxyir] 5 mg PO Q6H PRN PRN 7 Days #20 tab 12/11/17 The following prescriptions were given: Oxycodone [Oxyir] 5 mg PO Q6H PRN PRN 7 Days #20 tab PRN Reason: Mod-Severe Pain (-02/22) Insulin NPH Human [Humulin N Pen] 30 units SC BID@0730,2200 #10 pen Insulin Regular, Human [Humulin R] 5 unit SQ 4X/DAY PRN PRN #4 vial PRN Reason: Hyperglycemica Ibuprofen 600 mg PO 4X/DAY #30 tab Follow-Up: Call to make an appointment with your doctor for an incision check in 1-2 weeks. You will also need a 6 week post- follow up appointment. Test results from this visit will be discussed in further detail at your follow- up appointment, if applicable. Please Follow Up With: Abilio Iverson MD When: one week Primary Care Physician: Jorge Vu MD [Primary Care Provider] - Proposed Discharge Date: 12/12/17
[2017-12-11] MEDS: oxyCODONE 5 MG Tablet PO (10:40)
[2017-12-11] MEDS: Senna/Docusate Sodium 1 Tablet PO (10:41)
[2017-12-11] MEDS: Sertraline 100 MG Tablet 200 MG PO (10:41)
[2017-12-11] MEDS: Prenatal Vits Tablet 1 TABLET PO (10:41)
[2017-12-11 12:31] LABS: Bedside Glucose 84 mg/dL (70-110)
[2017-12-11 13:50] VITALS: BP 120/71; PULSE 91; RESP 16; TEMP 36.1; O2SAT 97
--- NOTE | 2017-12-11 20:16 | PCM.DC.SUM ---
Discharge Date and Diagnosis Date of Admission: 12/07/17 Date of Discharge: 12/11/17 - Primary Discharge Diagnosis S/P primary LTCS, Type I diabetes - Secondary Discharge Diagnosis Chronic Problems Type 1 diabetes mellitus affecting in third trimester, antepartum (Chronic) Hospital Course and Treatment Consultations 12/07/17 11:17 Consult: Mental Health/Crisis Routine Reason for consult?: history of thc use Date Notified:: 12/07/17 Time notified:: 11:17 Operations: - - Primary low transverse section Summary of Care Provided: The patient is a 22 year old F [admitted for primary section secondary to poorly controlled type one diabetes with suspected macrosomia based on US EFW greater than 4500gm. delivery performed without complication with delivery of macrosomic . Baby had issues with maintaining blood sugars after delivery and on day 5 had issues with O2 destaurations and was transferred to [facility] for observation. Chelsey's blood sugars were somewhat labile during her course but not unreasonable. She was discharged home on POD#5.] Discharge Diet: No Restrictions Discharge Activity: Return to Normal Activity, May Not Drive, May not drive while taking narcotic pain medications., May Shower Return to work on:: 01/30/18 May shower in (days): 0 May resume sexual activity in: 4-6 weeks Call your doctor if your incision/area has: Continuous Slow Oozing, Sudden Increased Bleeding, Increased Pain/ Swelling, Increased Redness, Foul Smelling Discharge, Swelling at the incision site Call your doctor if you observe: Fever of 101 or Higher, Inability to urinate, Inability to have a bowel movement, Using more than one pad per hour, Shortness of breath, Chest pain, Calf discomfort, Uncontrolled pain Remove Dressing in (days):: 2 Cleanse incision/area with: Soap & Water Home Medications: Medications to take at Discharge Insulin Aspart [Novolog Flexpen] 1 units SC BID MDD sliding scale 12/04/17 Insulin Glargine,Hum.rec.anlog [Basaglar Kwikpen U-100] 50 unit SQ BID 12/04/17 RX: Pnv 11-Iron Fum-Folic Acid-Om3 [Virt-Efrain Dha Softgel] 1 cap PO DAILY 12/04/17 RX: Sertraline HCl [Zoloft] 200 mg PO DAILY 12/04/17 RX: Ibuprofen 600 mg PO 4X/DAY #30 tab 12/11/17 RX: Insulin NPH Human [Humulin N Pen] 30 units SC BID@0730,2200 #10 pen 12/11/17 RX: Insulin Regular, Human [Humulin R] 5 unit SQ 4X/DAY PRN PRN #4 vial 12/11/17 RX: Oxycodone [Oxyir] 5 mg PO Q6H PRN PRN 7 Days #20 tab 12/11/17 Following Prescrptions Were Given to Patient: RX: Oxycodone [Oxyir] 5 mg PO Q6H PRN PRN 7 Days #20 tab PRN Reason: Mod-Severe Pain (-02/22) RX: Insulin NPH Human [Humulin N Pen] 30 units SC BID@0730,2200 #10 pen RX: Insulin Regular, Human [Humulin R] 5 unit SQ 4X/DAY PRN PRN #4 vial PRN Reason: Hyperglycemica RX: Ibuprofen 600 mg PO 4X/DAY #30 tab Primary Care Physician: Jorge Vu MD [Primary Care Provider] - Please Follow Up With: Abilio Iverson MD When: one week Disposition: Home Minutes spent on discharge:: 15 Patient Condition:: Good Medical Necessity - Tobacco Use Smoking Status: Never smoker Meaningful Use Info Meaningful Use Diagnoses (Choose all that apply): None applicable
--- NOTE | 2017-12-11 20:20 | DS.PCM_ITS ---
Discharge Date and Diagnosis Date of Admission: 12/07/17 Date of Discharge: 12/11/17 - Primary Discharge Diagnosis S/P primary LTCS, Type I diabetes - Secondary Discharge Diagnosis Chronic Problems Type 1 diabetes mellitus affecting in third trimester, antepartum ( Chronic) Hospital Course and Treatment Consultations 12/07/17 11:17 Consult: Mental Health/Crisis Routine Reason for consult?: history of thc use Date Notified:: 12/07/17 Time notified:: 11:17 Operations: - - Primary low transverse section Summary of Care Provided: The patient is a 22 year old F [admitted for primary section secondary to poorly controlled type one diabetes with suspected macrosomia based on US EFW greater than 4500gm. delivery performed without complication with delivery of macrosomic . Baby had issues with maintaining blood sugars after delivery and on day 5 had issues with O2 destaurations and was transferred to [facility] for observation. Chelsey's blood sugars were somewhat labile during her course but not unreasonable. She was discharged home on POD#5.] Discharge Diet: No Restrictions Discharge Activity: Return to Normal Activity, May Not Drive, May not drive while taking narcotic pain medications., May Shower Return to work on:: 01/30/18 May shower in (days): 0 May resume sexual activity in: 4-6 weeks Call your doctor if your incision/area has: Continuous Slow Oozing, Sudden Increased Bleeding, Increased Pain/ Swelling, Increased Redness, Foul Smelling Discharge, Swelling at the incision site Call your doctor if you observe: Fever of 101 or Higher, Inability to urinate, Inability to have a bowel movement, Using more than one pad per hour, Shortness of breath, Chest pain, Calf discomfort, Uncontrolled pain Remove Dressing in (days):: 2 Cleanse incision/area with: Soap & Water Home Medications: Medications to take at Discharge Insulin Aspart [Novolog Flexpen] 1 units SC BID MDD sliding scale 12/04/17 Insulin Glargine,Hum.rec.anlog [Basaglar Kwikpen U-100] 50 unit SQ BID 12/04/17 RX: Pnv 11-Iron Fum-Folic Acid-Om3 [Virt-Efrain Dha Softgel] 1 cap PO DAILY RX: Sertraline HCl [Zoloft] 200 mg PO DAILY 12/04/17 RX: Ibuprofen 600 mg PO 4X/DAY #30 tab 12/11/17 RX: Insulin NPH Human [Humulin N Pen] 30 units SC BID@0730,2200 #10 pen RX: Insulin Regular, Human [Humulin R] 5 unit SQ 4X/DAY PRN PRN #4 vial RX: Oxycodone [Oxyir] 5 mg PO Q6H PRN PRN 7 Days #20 tab 12/11/17 Following Prescrptions Were Given to Patient: RX: Oxycodone [Oxyir] 5 mg PO Q6H PRN PRN 7 Days #20 tab PRN Reason: Mod-Severe Pain (-02/22) RX: Insulin NPH Human [Humulin N Pen] 30 units SC BID@0730,2200 #10 pen RX: Insulin Regular, Human [Humulin R] 5 unit SQ 4X/DAY PRN PRN #4 vial PRN Reason: Hyperglycemica RX: Ibuprofen 600 mg PO 4X/DAY #30 tab Primary Care Physician: Jorge Vu MD [Primary Care Provider] - Please Follow Up With: Abilio Iverson MD When: one week Disposition: Home Minutes spent on discharge:: 15 Patient Condition:: Good Medical Necessity - Tobacco Use Smoking Status: Never smoker Meaningful Use Info Meaningful Use Diagnoses (Choose all that apply): None applicable
--- NOTE | 2017-12-13 12:10 | CASEMGMT ---
Social Work Note Referral Site: Labor and Delivery Unit Met with patient/mother of baby (MOB) on 12-10-17 to have MOB sign Early Head Start referral. MOB signed referral form. Today, 12.13.17, faxed head start referral form. Also spoke with Karolina Pereira at [facility] ([facility]) to alert to change in family status, brief maternal and histories, and current status of this family. Baby was transferred to [facility] on 12.11.17. Handoff today to Rozina Arellano, high school social studies teacher at [employer]. Rozina reports will be able to give MOB resource information before baby is discharge. No other services requested or indicated for MOB. Family will continued to be follow by [facility] social work. -ABDULAZIZ Bean, CONSUMER SCIENCE TEACHER
== END 2017-12-11 16:15 | disposition home or self-care (01) | DRG 370 ==
PROVIDERS: Admitting Provider Obstetrics & Gynecology; Family Provider Family Medicine; PCP Family Medicine; Visit Provider Obstetrics & Gynecology
PROC: 10D00Z1 Extraction of Products of Conception, Low, Open Approach (ICD-10-PCS; CPT 59514; principal; 2017-12-07 11:45)
DX: O36.63X0 Maternal care for excessive fetal growth, third trimester, not applicable or unspecified (principal); O24.013 Pre-existing type 1 diabetes mellitus, in pregnancy, third trimester; E10.65 Type 1 diabetes mellitus with hyperglycemia; O40.3XX0 Polyhydramnios, third trimester, not applicable or unspecified; O99.343 Other mental disorders complicating pregnancy, third trimester; F31.9 Bipolar disorder, unspecified; Z79.4 Long term (current) use of insulin; Z79.899 Other long term (current) drug therapy; Z3A.37 37 weeks gestation of pregnancy; Z37.0 Single live birth
CPT/HCPCS: 59025; 59050; 82962; 84112; 85025; 85027; 85610; 85730; 86850; 86900; 99218; J7120; A4216; G0378

== ENCOUNTER 2018-01-20 12:15 | Emergency (ER) | payer MEDICAID, SELFPAY ==
[2018-01-20 12:16] VITALS: BP 109/70; PULSE 98; RESP 16; TEMP 36.1; O2SAT 95; BMI 27.7
[2018-01-20 14:22] VITALS: BP 104/79; PULSE 95; RESP 16; O2SAT 97
--- NOTE | 2018-01-20 14:59 | ED.VISSUMM ---
- ER Visit Summary Date of Service: 01/20/18 Chief Complaint: Ingrown toenail History of Present Illness: The patient is a 22 F who has an ingrown toenail on the right great toe. It has been there for 4 days. She was digging at it with a staple which made it worse. She is a diabetic. She states there is been some oozing from this area. She denies a fever. No history of this in the past Physical Examination: Vital signs reviewed. Right great toe exam reveals an ingrown toenail. There is infection noted. No abscess. It is diffusely tender. It is mildly erythematous Test Results: None performed Emergency Department Course and Treatment: Procedure note: Patient had a digital block performed with 1% lidocaine. The ingrown toenail was used with hemostats and scissors cutting a straight line and removing the outer portion of the toenail. There is no significant drainage. Patient tolerated this well. She will be placed on Keflex for home and will follow up with her PCP Treatment Plan: [] Disposition: Discharge Impression: Ingrown toenail, right great toe Toenail removal by ED physician This note was generated with Bubbles dictation software. It may contain incorrect words, spelling, and punctuation that were not noted in review of the chart prior to signing ED Disposition - Plan for ED Patient: Disposition: Home or Assisted Living Chief Complaint: Cellulitis Instructions: ED Toenail Ingrown Infec Abx Onl Prescriptions: Cephalexin [Keflex] 500 mg PO Q6 #28 cap Referrals: Jorge Vu MD [Primary Care Provider] -
== END 2018-01-20 15:09 | disposition home or self-care (01) ==
PROVIDERS: Emergency Provider Emergency Medicine; Family Provider Family Medicine; PCP Family Medicine
DX: L60.0 Ingrowing nail (principal); E10.9 Type 1 diabetes mellitus without complications; Z79.4 Long term (current) use of insulin; Z79.899 Other long term (current) drug therapy
CPT/HCPCS: 11750; 11760; 99284

== ENCOUNTER → 2018-07-28 16:01 | Outpatient (CLI) | payer MEDICAID, SELFPAY ==
[2018-07-28 17:55] LABS: Chlamydia Trachomatis by PCR Negative (Negative); Neisserai gonorrhoeae by PCR Negative (Negative); Probe Check PASS; Sample Adequacy Control PASS; Specimen Processing Control PASS
== END ==
PROVIDERS: Family Provider Family Medicine; PCP Family Medicine; Visit Provider Obstetrics & Gynecology
DX: Z11.3 Encounter for screening for infections with a predominantly sexual mode of transmission (principal)
CPT/HCPCS: 87491; 87591

== ENCOUNTER 2018-10-07 21:09 | Emergency (ER) | payer MEDICAID, SELFPAY ==
[2018-10-07 21:11] VITALS: BP 110/70; PULSE 79; RESP 15; TEMP 36.6; BMI 25.0
[2018-10-07 21:31] LABS: Bedside Glucose > 500 mg/dL (70-110)
--- NOTE | 2018-10-07 21:36 | EKG12_ITS ---
Test Reason : GEN ILLNESS Blood Pressure : / mmHG Vent. Rate : 074 BPM Atrial Rate : 074 BPM P-R Int : 144 ms QRS Dur : 082 ms QT Int : 386 ms P-R-T Axes : 025 042 031 degrees QTc Int : 428 ms Normal sinus rhythm Normal ECG Confirmed by PRUDENCIO CRUZ, CHANO ([id number]), publication editor CHASE ALONSO ([id number]) on 10/11/2018 9:08:44 AM Referred By: RAVEN Confirmed By:CHANO FLANNERY MD
--- NOTE | 2018-10-07 21:38 | ED.VISSUMM ---
- ER Visit Summary Date of Service: 10/07/18 Chief Complaint: High blood sugar History of Present Illness: The patient is a 23 F who presents for evaluation of high blood sugar. Patient has been out of her short acting Humalog for 4 days due to insurance issues. She has been taking her long-acting. She is having polydipsia, polyphagia and polyuria. She is also had a headache for 2 days. Patient has type 1 diabetes. No other medical issues. Physical Examination: Vital signs: afebrile, hemodynamically stable, no hypoxia on room air General: well nourished, well developed, in no distress Skin: warm, dry, no rash, no pallor HEENT: normocephalic and atraumatic; PERRL, EOMI, tacky mucous membranes Cardiovascular: regular rate and rhythm without murmurs, no peripheral edema, 2+ pulses all distal extremities Respiratory: No increased work of breathing, lungs are clear to auscultation bilaterally, no rales, rhonchi or wheezing, no Kussmaul respirations Abdominal: Abdomen is soft, nontender with normoactive bowel sounds, no guarding or rebound, no masses MSK: Moves all extremities, no deformities, normal strength Neuro: Awake and alert, oriented ?4. No facial droop, sensation and motor function intact and symmetric Test Results: Abnormal Lab Results 10/07/18 10/07/18 10/07/18 21:22 21:23 21:30 WBC 3.3 L RBC 4.59 Hgb 10.6 L Hct 33.9 L MCV 73.9 L MCH 23.1 L MCHC 31.3 L RDW 16.0 H RDW Differential 43.2 Plt Count 202 MPV 10.5 Immature Gran % (Auto) 0.000 Neut % (Auto) 62.7 Lymph % (Auto) 23.9 [place] % (Auto) 12.8 H Eos % (Auto) 0.3 Baso % (Auto) 0.3 Absolute Neuts (auto) 2.1 Absolute Lymphs (auto) 0.78 L Total Counted Not Reportable Specimen Type Sample Site VBG pH VBG pO2 VBG O2 Sat (Calc) VBG O2 Content VBG Base Excess POC Mix VBG pCO2 Pt Tmp O2 Delivery Device Blood Gas Notified Whom Blood Gas Notified Time Sodium Potassium Chloride Carbon Dioxide Anion Gap BUN Creatinine Estim Creat Clear Calc Est GFR (MDRD) Af Amer Est GFR (MDRD) Non-Af BUN/Creatinine Ratio Glucose Calcium Phosphorus Magnesium Urine Color Yellow Urine Clarity Clear Urine pH 6.0 Ur Specific [place] 1.010 Urine Protein Negative Urine Glucose (UA) 1000 H Urine Ketones Negative Urine Occult Blood Negative Urine Nitrite Positive H Urine Bilirubin Negative Urine Urobilinogen Normal Ur Leukocyte Esterase Negative Urine RBC 0 SEEN Urine WBC 0 SEEN Ur Squamous Epith Cells 0 SEEN Urine Bacteria 0 SEEN Urine Mucus 0 SEEN Urine Test Negative Acetone Level POC Glucose > 500 H* 10/07/18 10/07/18 10/07/18 21:30 21:30 21:30 WBC RBC Hgb Hct MCV MCH MCHC RDW RDW Differential Plt Count MPV Immature Gran % (Auto) Neut % (Auto) Lymph % (Auto) [place] % (Auto) Eos % (Auto) Baso % (Auto) Absolute Neuts (auto) Absolute Lymphs (auto) Total Counted Specimen Type Sample Site VBG pH VBG pO2 VBG O2 Sat (Calc) VBG O2 Content VBG Base Excess POC Mix VBG pCO2 Pt Tmp O2 Delivery Device Blood Gas Notified Whom Blood Gas Notified Time Sodium 129 L Cancelled Potassium 4.3 Cancelled Chloride 96 L Cancelled Carbon Dioxide 26.0 Cancelled Anion Gap 7 Cancelled BUN 14 Cancelled Creatinine 0.81 Cancelled Estim Creat Clear Calc 105.04 Cancelled Est GFR (MDRD) Af Amer 112 Cancelled Est GFR (MDRD) Non-Af 92 Cancelled BUN/Creatinine Ratio 17.2 Cancelled Glucose 591 H* Cancelled Calcium 8.8 Cancelled Phosphorus 4.5 Magnesium 1.7 Urine Color Urine Clarity Urine pH Ur Specific [place] Urine Protein Urine Glucose (UA) Urine Ketones Urine Occult Blood Urine Nitrite Urine Bilirubin Urine Urobilinogen Ur Leukocyte Esterase Urine RBC Urine WBC Ur Squamous Epith Cells Urine Bacteria Urine Mucus Urine Test Acetone Level NEGATIVE POC Glucose 10/07/18 10/07/18 10/07/18 21:58 23:00 23:42 WBC RBC Hgb Hct MCV MCH MCHC RDW RDW Differential Plt Count MPV Immature Gran % (Auto) Neut % (Auto) Lymph % (Auto) [place] % (Auto) Eos % (Auto) Baso % (Auto) Absolute Neuts (auto) Absolute Lymphs (auto) Total Counted Specimen Type RITU Sample Site OTHER VBG pH 7.34 VBG pO2 36 VBG O2 Sat (Calc) 64 VBG O2 Content 25 VBG Base Excess -2 L POC Mix VBG pCO2 Pt Tmp 44.3 O2 Delivery Device Room Air Blood Gas Notified Whom ED Blood Gas Notified Time 2200 Sodium Potassium Chloride Carbon Dioxide Anion Gap BUN Creatinine Estim Creat Clear Calc Est GFR (MDRD) Af Amer Est GFR (MDRD) Non-Af BUN/Creatinine Ratio Glucose Calcium Phosphorus Magnesium Urine Color Urine Clarity Urine pH Ur Specific [place] Urine Protein Urine Glucose (UA) Urine Ketones Urine Occult Blood Urine Nitrite Urine Bilirubin Urine Urobilinogen Ur Leukocyte Esterase Urine RBC Urine WBC Ur Squamous Epith Cells Urine Bacteria Urine Mucus Urine Test Acetone Level POC Glucose 373 H 269 H Medications Given Sodium Chloride () 1,000 mls @ 999 mls/hr IV .Q1H1M ONE Stop: 10/07/18 23:47 Last Admin: 10/07/18 23:01 Dose: 999 mls/hr Discontinued Medications Sodium Chloride () 1,000 mls @ 999 mls/hr IV .Q1H1M ONE Stop: 10/07/18 22:36 Last Admin: 10/07/18 21:45 Dose: 999 mls/hr Insulin Human Lispro (Humalog Kwikpen (Bkc)) 15 unit SC X1 ONE Stop: 10/07/18 22:47 Last Admin: 10/07/18 23:02 Dose: 15 unit Insulin Human Lispro (Humalog Kwikpen (Bkc)) 85 unit SC X1 ONE Stop: 10/07/18 23:30 Emergency Department Course and Treatment: Patient's bedside glucose read high. Patient was given IV fluids for hydration. Work-up was performed to evaluate for hyperglycemic crisis. Patient had no ketones, bicarb is normal, no anion gap, pH and CO2 were within normal limits. Patient's glucose was 591 on her BNP. Patient was given subcu Humalog 15U for her significant hyperglycemia without evidence of DKA. Patient received IV fluids and felt much better after receiving hydration. Patient's headache resolved. She had no signs of infection on her work-up. Patient's blood sugar was monitored closely and continued to trend down. Patient feels well enough to go home. sHe is unable to obtain her Humalog prescription for several days due to the insurance issues and the expense of it without her insurance. Patient was given a home pack of a humalog quikpen to get her through the long weekend. Patient is to return if any worsening of her condition. Treatment Plan: [] Disposition: [] Impression: hyperglycemia This note was generated with Lee Silber dictation software. It may contain incorrect words, spelling, and punctuation that were not noted in review of the chart prior to signing ED Disposition - Plan for ED Patient: Disposition: Home or Assisted Living Instructions: ED Hyperglycemia Diabetic Referrals: Jorge Vu MD [Primary Care Provider] - 1-2 Days if not improving Additional Instructions: Please continue your insulin regimen as you were prescribed by your doctor who manages her diabetes. If you have any worsening of your condition or any new concerning symptoms, please return immediately to the emergency department for another evaluation.
[2018-10-07] MEDS: 0.9% Normal Saline 1,000 ML 999 ML IV ×2 (21:45→23:01)
[2018-10-07 21:48] LABS: Absolute Lymphocyte Count 0.78 X10^3/ul (0.83-4.51); Absolute Neutrophil Count 2.1 X10^3/uL (2.0-7.7); Basophil# 0.01 X10^3/uL; Basophil% 0.3 % (0-1); Eosinophil# 0.01 X10^3/uL; Eosinophils% 0.3 % (0-5); Hematocrit 33.9 % (37-47); Hemoglobin 10.6 g/dl (12.0-15.0); Lymphocyte # 0.78 X10^3/ul (4.0); Lymphocyte % 23.9 % (19-41); Mean Corp Hgb Conc 31.3 g/gl (32-36); Mean Corpuscular Hgb 23.1 pg (27.0-32.0); Mean Corpuscular Volume 73.9 fL (81-99); Mean Platelet Vol. 10.5 fl (6.2-12.0); Monocyte# 0.42 X10^3/uL; Monocyte% 12.8 % (0-10); Neutrophil # 2.05 X10^3/uL (2.7-7.7); Neutrophil % 62.7 % (47-70); POSITIVE COUNT NO; POSITIVE DIFFERENTIAL NO; POSITIVE MORPHOLOGY NO; Platelet Count 202 K/mm3 (150-450); RBC Distribution Width SD 43.2 fl (35.1-43.9); Red Blood Count 4.59 M/mm3 (4.2-5.4); White Blood Count 3.3 K/mm3 (4.4-11.0)
[2018-10-07 21:50] VITALS: O2SAT 97
[2018-10-07 21:58] LABS: Bacteria 0 SEEN /hpf (None Seen); Mucous, Urine 0 SEEN /hpf (<or=2+); Red Blood Cells-Urine 0 SEEN /hpf (0-5); Squamous Epithelial Cells - UA 0 SEEN /hpf (5-10); White Blood Cells 0 SEEN /hpf (0-5)
[2018-10-07 21:59] LABS: Color, Urine Yellow (Yellow); Glucose, Dipstick 1000 mg/dl (Normal); Ketone-Dipstick Negative (Negative); Leukocyte Esterase-Dipstick Negative /ul (Negative); Nitrite-Dipstick Positive (Negative); Occult Blood-Urine Negative /ul (Negative); Protein-Dipstick Negative (Negative); Urine Bilirubin Dipstick Negative (Negative); Urine Clarity Clear (Clear); Urine Urobilinogen Normal (Normal)
[2018-10-07 22:01] LABS: Blood Gas Specimen Type VEN; O2 Delivery Device Room Air; SITE OTHER; Time Given 2200; VBG BASE EXCESS -2 mmol/L (-1.0-3.5); VBG Bicarbonate 24 mmol/L (22-26); VBG Oxygen Content 25 mmol/L (23-33); VBG PO2 36 mmHg (25-40); VBG SO2 64 % (50-70); VBG pCO2 44.3 mmHg (41-51); VBG pH 7.34 (7.32-7.42)
--- NOTE | 2018-10-07 22:02 | CPS ---
Venous blood gas results to Dr. Harvey. No further orders obtained at this time.
[2018-10-07 22:03] LABS: Internal QC Validated? YES +Cl - CLEAR BKGD; Pregnancy, Urine Negative Negative
[2018-10-07 22:21] LABS: Anion Gap 7 (5-15); BUN 14 mg/dL (7-18); BUN/Creat Ratio 17.2 RATIO (10-20); Calcium,Total 8.8 mg/dL (8.5-10.1); Chloride 96 mmol/L (98-107); Creatinine, Serum 0.81 mg/dL (0.55-1.02); EST Glomerular Filtration Rate 92 mL/min (>60); Est Glom Filt Rate - Afr Amer 112 mL/min (>60); Estimated Creatinine Clearance 105.04 ml/min; Glucose 591 mg/dL (74-106); Magnesium 1.7 mg/dL (1.6-2.6); Phosphorus 4.5 mg/dL (2.5-4.9); Potassium 4.3 mmol/L (3.5-5.1); Sodium Level 129 mmol/L (136-145)
--- NOTE | 2018-10-07 22:23 | ED.RN ---
CRITICAL GLUCOSE [address] CARBAJAL.
[2018-10-07] MEDS: Insulin Lispro 100 UNIT/ML INSULN.PEN 15 UNIT SC (23:02)
[2018-10-07 23:06] LABS: Bedside Glucose 373 mg/dL (70-110)
[2018-10-07 23:22] VITALS: PULSE 67; RESP 18; O2SAT 97
[2018-10-07 23:45] LABS: Bedside Glucose 269 mg/dL (70-110)
[2018-10-08 00:31] VITALS: BP 119/86; PULSE 70; RESP 16; O2SAT 99
[2018-10-08] MEDS: Insulin Lispro 100 UNIT/ML INSULN.PEN 85 UNIT SC (00:33)
[2018-10-08 00:36] LABS: Bedside Glucose 179 mg/dL (70-110)
== END 2018-10-08 00:33 | disposition home or self-care (01) ==
PROVIDERS: Emergency Provider Emergency Medicine; Family Provider Family Medicine; PCP Family Medicine
DX: E10.65 Type 1 diabetes mellitus with hyperglycemia (principal); Z79.4 Long term (current) use of insulin; Z79.899 Other long term (current) drug therapy
CPT/HCPCS: 80048; 81001; 81025; 82009; 82803; 82962; 83735; 84100; 85025; 93005; 96360; 96361; 99284; J7030; A4216

== ENCOUNTER 2018-10-11 12:38 | Emergency (ER) | payer MEDICAID, SELFPAY ==
[2018-10-11 12:38] VITALS: BP 101/61; PULSE 89; RESP 16; TEMP 36.8; O2SAT 100; BMI 25.0
[2018-10-11] MEDS: Ondansetron 4 MG/2 ML Vial IV (13:20)
[2018-10-11] MEDS: 0.9% Normal Saline 1,000 ML 1000 ML IV (13:21)
[2018-10-11 13:33] LABS: Absolute Lymphocyte Count 0.62 X10^3/ul (0.83-4.51); Absolute Neutrophil Count 2.6 X10^3/uL (2.0-7.7); Hematocrit 33.7 % (37-47); Hemoglobin 10.6 g/dl (12.0-15.0); Lymphocyte # 0.62 X10^3/ul (4.0); Lymphocyte % 17.8 % (19-41); Mean Corp Hgb Conc 31.5 g/gl (32-36); Mean Corpuscular Volume 73.3 fL (81-99); Mean Platelet Vol. 10.2 fl (6.2-12.0); Monocyte# 0.28 X10^3/uL; Neutrophil # 2.58 X10^3/uL (2.7-7.7); Neutrophil % 74.2 % (47-70); Platelet Count 147 K/mm3 (150-450); RBC Distribution Width CV 16.1 % (11.6-14.6); RBC Distribution Width SD 43.5 fl (35.1-43.9); White Blood Count 3.5 K/mm3 (4.4-11.0)
[2018-10-11 13:37] LABS: POSITIVE COUNT NO; POSITIVE DIFFERENTIAL NO; POSITIVE MORPHOLOGY NO
[2018-10-11 13:55] LABS: ALB/GLOB Ratio 0.7 RATIO (0.9-2.4); AST(SGOT) 9 U/L (15-37); Alanine Aminotransfer ALT/SGPT 13 U/L (13-56); Alkaline Phosphatase 62 U/L (45-117); Anion Gap 6 (5-15); BUN 7 mg/dL (7-18); BUN/Creat Ratio 11.6 RATIO (10-20); Calcium,Total 8.1 mg/dL (8.5-10.1); Chloride 101 mmol/L (98-107); EST Glomerular Filtration Rate 130 mL/min (>60); Est Glom Filt Rate - Afr Amer 157 mL/min (>60); Estimated Creatinine Clearance 141.81 ml/min; Globulin 4.1 g/dL (2.2-4.2); Glucose 140 mg/dL (74-106); Lipase 36 U/L (73-393); Potassium 3.7 mmol/L (3.5-5.1); Protein, Total 7.1 g/dL (6.4-8.2); Sodium Level 136 mmol/L (136-145); Thyroid Stim Hormone (TSH) 7.71 uIU/mL (0.358-3.74)
[2018-10-11 15:11] VITALS: RESP 16
[2018-10-11 15:17] LABS: Color, Urine Yellow (Yellow); Glucose, Dipstick 250 mg/dl (Normal); Ketone-Dipstick 15 mg/dl (Negative); Leukocyte Esterase-Dipstick 25 /ul (Negative); Nitrite-Dipstick Negative (Negative); Occult Blood-Urine 10 /ul (Negative); Protein-Dipstick 30 mg/dl (Negative); Specific Gravity, Urine 1.015 (1.002-1.030); Urine Bilirubin Dipstick Negative (Negative); Urine Clarity Sl. Cloudy (Clear); Urine Urobilinogen Normal (Normal)
--- NOTE | 2018-10-11 15:19 | ED.VISSUMM ---
- ER Visit Summary Date of Service: 10/11/18 Chief Complaint: Abdominal pain, generalized malaise History of Present Illness: The patient is a 23 F who presents with the above symptoms. She has had 3 days of cramping abdominal pain. Hurts all over her abdomen. Nothing makes it better or worse. She did have some nausea and vomiting as well. Denies any diarrhea. No urinary symptoms. She feels like she has been having chills and feels weak all over. She feels like my body is shutting down. No history of abdominal surgeries in the past. She is a type I diabetic and her blood sugar was 130 this morning. She was seen here 4 days ago with hyperglycemia which was corrected with insulin here. She was not ketotic at that time. Physical Examination: Vital signs reviewed. HEENT exam unremarkable. Heart is regular rate and rhythm without murmurs. Lungs are clear to auscultation. Abdomen is soft and nontender. Extremities reveal no edema. Skin exam normal. Neurologic exam normal. Test Results: White blood cell count 3.5, hemoglobin 10.6, glucose 140. Urinalysis negative for infection or blood. TSH 7.71 Emergency Department Course and Treatment: Patient was given normal saline. Her labs are unremarkable except for a slight elevation of her TSH. She will need to speak with her primary care physician about thyroid supplementation. I will not start it today. She will need to increase hydration at home. No signs of infection. Her abdomen is fairly benign. She will follow-up with her primary care physician. Treatment Plan: [] Disposition: Discharge Impression: Generalized weakness This note was generated with [employer] dictation software. It may contain incorrect words, spelling, and punctuation that were not noted in review of the chart prior to signing ED Disposition - Plan for ED Patient: Referrals: Jorge Vu MD [Primary Care Provider] -
[2018-10-11 15:20] LABS: Internal QC Validated? YES +Cl - CLEAR BKGD; Pregnancy, Urine Negative Negative
[2018-10-11 15:24] LABS: Bacteria 1+ /hpf (None Seen); Mucous, Urine 2+ /hpf (<or=2+); Red Blood Cells-Urine 0-5 SEEN /hpf (0-5); Squamous Epithelial Cells - UA 0-5 SEEN /hpf (5-10); White Blood Cells 0-5 SEEN /hpf (0-5)
--- NOTE | 2018-10-11 15:42 | ED.DEP ---
ED Disposition - Plan for ED Patient: Disposition: Home or Assisted Living Instructions: ED Abdominal Pain Unkn Cause Referrals: Jorge Vu MD [Primary Care Provider] -
[2018-10-11 15:46] VITALS: BP 112/68; PULSE 83; RESP 17; O2SAT 97
== END 2018-10-11 15:52 | disposition home or self-care (01) ==
PROVIDERS: Emergency Provider Emergency Medicine; Family Provider Family Medicine; PCP Family Medicine
DX: R53.1 Weakness (principal); R11.2 Nausea with vomiting, unspecified; E10.9 Type 1 diabetes mellitus without complications; R94.6 Abnormal results of thyroid function studies; Z79.4 Long term (current) use of insulin; Z79.899 Other long term (current) drug therapy
CPT/HCPCS: 80053; 81001; 81025; 83690; 84443; 85025; 96361; 96374; 99283; J7030; J2405

== ENCOUNTER 2019-02-03 21:06 | Emergency (ER) | payer MEDICAID, SELFPAY ==
[2019-02-03 21:07] VITALS: BP 116/68; PULSE 79; RESP 16; TEMP 36.1; O2SAT 94; BMI 25.0
[2019-02-03 21:09] VITALS: BP 116/68; PULSE 79; RESP 16; TEMP 36.1; O2SAT 97; BMI 25.0
--- NOTE | 2019-02-03 21:21 | ED.DCSUM_ITS ---
History of Present Illness Chief Complaint: Med Refill Informant: Patient Narrative: Patient presents with need for refills on her insulin. She is a type I diabetic. She states she has been out of her insulin for the last 4 or 5 days. She was seen last week at [facility] and had blood work performed. She told him that she was running low on her insulin but was advised she would receive her refills at her next appointment on the . Patient has no signs or symptoms of DKA, but did not want to go any longer without her insulin. Past Medical History - Allergies and Home Meds Allergies/Adverse Reactions: Allergies No Known Allergies Allergy (Verified 02/03/19 21:07) Primary Care Physician: Rose Esquivel NP-C [Primary Care Provider] - Keep Arthur appointment Prior records reviewed: Yes Past Medical History: - - Reviewed Smoking Status: Never smoker Review of Systems General: Denies: Chills, Fever Eyes: Denies: Visual changes - bilaterally ENT: Denies: Sore throat Cardiovascular: Denies: Chest pain, Palpitations Respiratory: Denies: Dyspnea, Cough Gastrointestinal: Denies: Abdominal pain, Nausea, Vomiting, Diarrhea Genitourinary: Denies: Dysuria Skin: Denies: Wounds Neurological: Denies: Headache Allergy: Denies: Uticaria Physical Exam Vital Signs/Narrative: Vital Signs Temp Pulse Resp BP Pulse Ox 02/03/19 21:09 96.9 F L 79 16 116/68 97 02/03/19 21:07 96.9 F L 79 16 116/68 94 Inital Vital Signs reviewed: Yes General: Well nourished, Well developed Head: Normocephalic ENT: Moist mucous membranes, No rhinorrhea Cardiovascular: Regular rate, Regular rhythm Respiratory: No distress, CTA bilaterally Abdomen: Soft, Nontender Back: Nontender Extremities: Nontender Skin: Normal color, No rash Neurological: Alert, Oriented x3 Psychological: Normal affect Diagnostic/Tx/Re-eval - Medical Decision Making Patient is written prescriptions for her insulin. She will follow-up with [facility] clinic so on the as scheduled. ED Disposition - Plan for ED Patient: Disposition: Home or Assisted Living Diagnosis: Medication refill Instructions: Med Refill Prescriptions: Insulin NPH Human Isophane [Humulin N Kwikpen] 35 unit SQ BID #1 insuln.pen Prescription Printed Referrals: Rose Esquivel, DIESEL ENGINE MECHANIC APPRENTICE-C [Primary Care Provider] - Keep Arthur appointment
--- NOTE | 2019-02-03 23:33 | ED.RN ---
PATIENT LEFT WITHOUT HER INSULIN PRESCRIPTIONS D/T THE PHARMACY UNABLE TO FIGURE OUT HOW TO FILL THE PRESCRIPTIONS. PATIENT WAITED TWO HOURS WITH MANY QUESTIONS FROM PHARMACY AND UPDATES, TO THE FINAL CALL TELLING THIS NURSE THAT THEY WERE NOT IN THE SYSTEM AND THEY WOULD HAVE TO BE BUILT INTO THE SYSTEM PATIENT WAS VERY UPSET AND WANTED TO LEAVE WITH HER PRESCRIPTIONS TO FILL IN THE MORNING. I ASKED IF SHE WOULD LIKE HER BLOOD GLUCOSE CHECKED AND WE COULD TREAT HER AND SEND HOME THE HUMALOG PEN WITH HER AND SHE DECLINED. DR. CARDENAS WAS MADE AWARE OF THIS AND REQUESTED THIS BE BROUGHT TO THE ATTENTION OF THE RIB CLOTH KNITTER.
== END 2019-02-03 21:35 | disposition home or self-care (01) ==
LOC: ED 21:32
PROVIDERS: Emergency Provider Emergency Medicine; Family Provider Nurse Practitioner Family; PCP Nurse Practitioner Family
DX: Z76.0 Encounter for issue of repeat prescription (principal); E10.9 Type 1 diabetes mellitus without complications; Z79.4 Long term (current) use of insulin
CPT/HCPCS: 99283

== ENCOUNTER → 2019-02-12 08:55 | Outpatient (CLI) | payer MEDICAID, SELFPAY ==
[2019-02-03 21:09] VITALS: BMI 25.0
--- NOTE | 2019-02-12 09:26 | US_ITS ---
STUDY: ULTRASOUND BREAST - LEFT REASON FOR EXAM: Female, 24 years old. Left breast lump. TECHNIQUE: Axial and longitudinal images of the LEFT breast were performed with a high resolution ultrasound transducer. COMPARISON: Comparison is made with prior ultrasound of the breasts dated July 12, 2016. FINDINGS: LEFT Breast: The palpable abnormality corresponds to a 4.1 cm x 5.9 cm x 3 cm well-defined hypoechoic solid nodule at the 4:00 position breast at 3 cm from the nipple. This most likely represents a large fibroadenoma. This has increased in size as compared to prior study. Tissue diagnosis is recommended. US/Breast Limited Unilateral IMPRESSION: The palpable abnormality corresponds to a 4.1 cm x 5.9 cm x 3 cm hypoechoic solid mass. This has increased in size as compared to prior study. A biopsy recommended for further evaluation. ASSESSMENT CATEGORY: BIRADS Category 4: Suspicious - Biopsy Should Be Considered. A letter regarding these results will be sent to the patient by the facility within 30 days. Electronically Signed: Cornell Simmons, at 9:30 EDT , Service support ,
== END ==
PROVIDERS: Family Provider Family Medicine; PCP Family Medicine
DX: N63.22 Unspecified lump in the left breast, upper inner quadrant (principal)
CPT/HCPCS: 76642

== ENCOUNTER → 2019-03-02 14:08 | Outpatient (CLI) | payer MEDICAID, SELFPAY ==
[2019-03-02 13:20] VITALS: BMI 25.0
--- NOTE | 2019-03-02 13:25 | BRBX_PTH ---
PATIENT: RAMON DEAN LOC: [facility] U#:[id number] AGE/SX: 30/F ROOM: RE03/02/[address]: Dr. Boogie Peters MD : 1995 BED: DIS: SPEC #: [id number] RECD: 03/02/19 13:59 STATUS: R[place] MANNY #: [id number] ANGIE: 03/02/19 13:[address]: Boogie Peters DEPT: SURGICAL PATHOLOGY RECD BY: Cristiana Woods ENTERED: 03/02/19 14:37 SP TYPE: BREAST BX OTHR DR: Dr. Jorge Vu MD [facility] Tissues: Left breast, NOS Procedures: Surgery Specimen Level IV HEADER OPERATION: Ultrasound-guided needle core biopsy, left breast PRE-OP DIAGNOSIS: Abnormal mammogram left breast TISSUE SUBMITTED: Left breast biopsy ISCHEMIC TIME: 30 seconds FIXATION TIME: 54 hours MICROSCOPIC DIAGNOSIS Left breast, ultrasound-guided needle core biopsy: Fibroadenoma. Negative for atypia or malignancy. SHAWNEE:claire 03/05/19 COMMENT Correlation with clinical, radiologic findings and appropriate follow up are necessary. MICROSCOPIC DESCRIPTION Slides are reviewed. GROSS DESCRIPTION Received in fixative is one container labeled with the patient's name and designated left breast tissue. The specimen consists of multiple elongated fragments of calhoun-yellow fibroadipose tissue that in aggregate measure 1.5 x 0.8 x 0.1 cm. The entire specimen is submitted in one cassette. / SHAWNEE:claire 03/02/19 TC:1 CPT: 01317
== END ==
PROVIDERS: Family Provider Family Medicine; PCP Family Medicine; Referring Provider Surgery; Visit Provider Surgery
DX: R92.8 Other abnormal and inconclusive findings on diagnostic imaging of breast (principal)
CPT/HCPCS: 88305

== ENCOUNTER 2019-03-16 09:40 | Day surgery (SDC) | payer MEDICAID, SELFPAY ==
[2019-03-13 10:08] VITALS: BMI 25.0
[2019-03-16 10:00] VITALS: BP 107/74; PULSE 72; RESP 18; TEMP 37.3; O2SAT 100; BMI 25.4
[2019-03-16 10:34] LABS: Internal QC Validated? YES +Cl - CLEAR BKGD; Pregnancy, Urine Negative Negative
[2019-03-16] MEDS: Lactated Ringers 1,000 ML 100 ML IV (10:42)
--- NOTE | 2019-03-16 10:59 | HP.PCM_ITS ---
History and Physical Date of Admission: 03/16/19 [facility] [address] [place], [place] [id number] OFFICE VISIT Date of Service: 03/13/19 MR#: [id number] Acct: [id number] Name: RAMON DEAN Rep #: [id number] : 1995 Provider: Boogie lopez MD Age/Sex: 24/F Location: [facility] Status: Signed Intake Vital Signs 03/13/19 Body Mass Index (BMI) 25.0 Intake Visit Reasons: Lt Breast NC Bx Packing Floor Worker Required: No Is patient in pain?: No Allergies No Known Allergies Allergy (Verified 03/13/19 10:03) Medications Insulin Lispro [Humalog KwikPen] 1 unit SQ 4X/DAY 01/20/18 [History Confirmed 03/13/19] Insulin NPH Human Isophane [Humulin N Kwikpen] 35 unit SQ BID #1 insuln.pen 02/03/19 [Rx Confirmed 03/13/19] [facility] Medical History Type 1 diabetes mellitus affecting in third trimester, antepartum (Chronic) Fibroadenoma of left breast (Acute) Surgical History S/P section (Acute) S/P left breast biopsy (Acute ~03/02/19) Family History Mother Thyroid disorder Social History (Updated 03/13/19 @ 10:25 by Boogie Peters MD) Smoking Status: Former smoker alcohol intake: never HPI HPI HPI: RAMON DEAN, is a 24 F who presents to the office today for HPI HPI Surgical H&P: Yes HPI: RAMON DEAN, is a 24 F who presents to the office today for Follow-up from an ultrasound-guided needle core biopsy of the left breast mass. Patient u nderwent the ultrasound-guided left needle core biopsy on 03/02/2019. This came back as a fibroadenoma. Patient has had this left breast mass for at least 2 to 3 years. She actually had a mammogram and ultrasound completed in 2017 which they recommended a biopsy however she did not follow-up with this her most recent mammogram and ultrasound shows her to be a 5.9 x 4.1 x 3 cm mass in the lower outer quadrant of her left breast. She states that this is probably double the size that it originally was. She has had no pain from this. Patient would like to have this mass removed secondary to his increase in size ROS General General: Yes weight change and fatigue; no appetite, colon cancer, breast cancer or weakness HEENT HEENT: No difficulty swallowing, eye injury, eye surgery, swollen glands or hoarseness Endo Endocrine: Yes diabetes mellitus; no thyroid disease, thyroid cancer, Hair loss, heat intolerance or cold intolerance Skin Skin: No rash or changing moles Breast Breast: Yes abnormal US; no left breast lump, right breast lump, nipple discharge, breast pain, abnormal mammogram or breast enlargement Musc Musculoskeletal: No back problems, arthritis, rheumatoid arthritis, gout or joint pain Cardio Cardiovascular: No murmur, pacemaker, heart disease, atrial fibrillation, high blood pressure, heart attack, heart stent, palpitations, shortness of breat with exertion or chest pain Psych Psychiatric: Yes depression and anxiety; no hearing voices Resp Respiratory: No shortness of breath, No sleep apnea, No cough, No COPD, No asthma, No emphysema, No wheezing Gastro Gastrointestinal: No abdominal pain, No nausea or vomiting, No diarrhea, No constipation, No blood in stool, No acid reflux, No hemorrhoids, No ulcers, No gallbladder problem, No black,tarry stools [place] Hematologic: No blood thinners, No blood disorders, No bleeding, No anemia, No blood clots Neuro Neurologic: No weakness Exam Const General: no acute distress, well developed, well hydrated Orientation: oriented to person, oriented to place, oriented to time [facility] Head: normal to inspection, normocephalic, atraumatic Ears: external ears normal Mouth: oropharynx normal, moist mucous membranes Eyes General: appearance normal, both eyes and all related structures Sclera: sclerae normal Pupils: normal by confrontation Neck Neck: trachea midline, no lymphadenopathy noted Neck mass: No Thyroid: thyroid normal Lymphatic: no lymphadenopathy noted Chest Chest palpation & inspection: normal inspection of the chest Breast inspection: normal inspection of the breasts Breast Palpation: No nipple discharge Other: Palpation of the right breast reveals Normal. Palpation of the left breast reveals Large fibroadenoma in the lower outer quadrant of the breast. Axillary exam demonstrates no suspicious masses in either the left or right axilla. Resp Effort & Inspection: normal respiratory effort Auscultation: clear to auscultation bilaterally Percussion: percussion normal Other: Respiratory Exam: Deferred Cardio Rate: regular rate Rhythm: regular rhythm Heart Sounds: no murmurs Other: Cardiac Exam: Deferred GI Palpation: soft, no hepatosplenomegaly, no masses, nontender Rectal Exam: other Other: GI Exam: Deferred Other: Rectal Exam: Deferred Extrem General: normal to inspection, no clubbing, cyanosis or edema Other: Extremity Exam: Deferred Assessment & Plan Problems 1. Fibroadenoma of left breast D24.2 Plan I have discussed above with the patient. I have recommended And excisional left breast biopsy. Patient has been counseled to the risks/benefits of the procedure. I have explained the risks of the surgery, including but not limited to: infection, bleeding, injury to any blood vessels/nerves, scar tissue, missing the lesion, further surgery, etc. - the patient understands and agrees to proceed. I have answered all of the patient's questions to her satisfaction and she has no further questions. Coding Level of Care Code Off vis,est,level 3 Diagnoses Fibroadenoma of left breast D24.2 03/13/19 1026 <Electronically signed by Boogie vann MD> Date _ Boogie Peters MD Cosigner Signature: Date (if applicable) CC: Jorge Vu MD ~ I have re-examined the patient. There are no clinical changes since date of exam.
--- NOTE | 2019-03-16 11:00 | BRBX_PTH ---
PATIENT: RAMON DEAN LOC: [facility] U#:[id number] AGE/SX: 24/F ROOM: RE03/16/[address]: Dr. Boogie Peters MD : 1995 BED: DIS: 03/16/2019 SPEC #: [id number] RECD: 03/16/19 12:15 STATUS: RICO MANNY #: [id number] ANGIE: 03/16/19 11:[address]: Boogie Peters DEPT: SURGICAL PATHOLOGY RECD BY: Abelino Raymond ENTERED: 03/16/19 13:21 SP TYPE: BREAST BX OTHR DR: No Primary Care Phys Tissues: Left breast, NOS Procedures: Surgery Specimen Level IV HEADER OPERATION: Excisional biopsy left breast PRE-OP DIAGNOSIS: Fibroadenoma of left breast D24.2 TISSUE SUBMITTED: Fibroadenoma of left breast MICROSCOPIC DIAGNOSIS Fibroadenoma of left breast, excision: Fibroadenoma. AM:claire 03/19/19 COMMENT Case has been reviewed in consultation with Dr. Spicer who concurs with the above diagnosis. IDC:SJ MICROSCOPIC DESCRIPTION Slides are reviewed. GROSS DESCRIPTION Received in fixative is one container labeled with the patient's name and designated left breast fibroadenoma. The specimen consists of a piece of calhoun, indurated nodular tissue measuring 6.5 x 5.5 x 4 cm. Sections reveal calhoun, solid lobular mucosa. The mucosa is cystic in nature. Hemorrhage is not identified. Major Assembly Inspector sections are submitted in eight cassettes. / SHAWNEE:claire 03/16/19 TC:1 CPT: 95463
[2019-03-16] MEDS: Cefazolin 2 GM in 0.9% Normal Saline 100 ML IV (11:01)
--- NOTE | 2019-03-16 11:01 | OP.PCM_ITS ---
Problem List (1) Fibroadenoma of left breast Status: Acute Report of Operation Date of Procedure: 03/16/19 Pre-Operative Diagnosis: Fibroadenoma left breast Post-Operative Diagnosis: Same Surgery/Procedure Performed:: Excisional breast biopsy left side of the fibroadenoma Type of Anesthesia:: Local MAC Anesthesiologist: Asad Gutierrez Specimen's removed: Fibroadenoma left breast Estimated Blood Loss (mL): < 5 cc Fluids Replaced: 600 cc LR Description of Procedure: Patient was brought into the operating room. Placed in the supine position. Under excellent MAC anesthetic the left breast was sterilely prepped and draped in usual fashion. Local was injected in the lower outer quadrant of the breast incision was made I dissected out a fibroadenoma in its entirety. Greatest length was 6 cm by roughly 4-1/2 cm. Use electrocautery for good hemostasis. T he wound was brought together with deep dermal stitches of 3-0 Vicryl and then a running 4-0 Monocryl Dermabond was applied sterile dressings were applied and the patient tolerated the procedure well. - Admit VTE Documentation VTE Present on Admission: No VTE Mechan Device Prophylaxis: SCD's VTE Pharm Prophylaxis ordered?: No Reason prophylaxis not ordered:: Treatment Not Indicated
[2019-03-16] MEDS: Bupivacaine Mpf 0.5% 30 ML VIAL (11:16)
--- NOTE | 2019-03-16 11:17 | DCINST_ITS ---
Discharge Diet: No Restrictions Discharge Activity: Return to Normal Activity May shower in (days): 3 Remove Dressing in (days):: 3 - Leave Dermabond in place. Allergies/Adverse Reactions: Allergies No Known Allergies Allergy (Verified 03/16/19 09:59) Medications to take at Discharge Insulin Lispro [Humalog KwikPen] 10 unit SQ 4X/DAY 01/20/18 Insulin NPH Human Isophane [Humulin N Kwikpen] 30 unit SQ BID 03/15/19 Oxycodone HCl/Acetaminophen [Percocet 5/325] 1 - 2 tab PO Q4H PRN PRN 6 Days #30 tab 03/16/19 The following prescriptions were given: Oxycodone HCl/Acetaminophen [Percocet 5/325] 1 - 2 tab PO Q4H PRN PRN 6 Days #30 tab PRN Reason: Pain Prescription Printed Primary Care Physician: Care Physician,No Primary [Primary Care Provider] - Test Results: Test results from this visit will be discussed in further detail at your follow- up appointment, if applicable. Please Follow Up With: Boogie Peters MD - [phone] When: Please call for an appointment to be seen in one week.
[2019-03-16 11:44] VITALS: BP 107/69; BP 107/74; PULSE 86; RESP 16; TEMP 36.2; O2SAT 100
[2019-03-16 11:45] VITALS: BP 107/69; BP 107/74; PULSE 75; RESP 16; O2SAT 100
[2019-03-16 11:46] LABS: Bedside Glucose 409 mg/dL (70-110)
[2019-03-16 11:50] VITALS: BP 107/74; BP 111/74; PULSE 78; RESP 16; O2SAT 100
[2019-03-16 11:55] VITALS: BP 107/74; BP 112/78; BP 113/75; PULSE 67; PULSE 83; RESP 16; TEMP 36.5; O2SAT 100
[2019-03-16 12:01] LABS: Bedside Glucose 230 mg/dL (70-110)
[2019-03-16 12:25] VITALS: BP 107/74
== END 2019-03-16 12:35 | disposition home or self-care (01) ==
LOC: SDC 09:42 → AC 09:43
PROVIDERS: Anesthesiology; Referring Provider Surgery; Visit Provider Surgery
PROC: (CPT 19120; principal; 2019-03-16 10:45)
DX: D24.2 Benign neoplasm of left breast (principal); E10.9 Type 1 diabetes mellitus without complications; Z79.4 Long term (current) use of insulin; Z87.891 Personal history of nicotine dependence
CPT/HCPCS: 19120; 81025; 82962; 88305; J7120; J2405

== ENCOUNTER 2019-08-20 14:38 | Emergency (ER) | payer MEDICAID, SELFPAY ==
[2019-05-28 10:12] VITALS: BMI 25.7
[2019-08-20 14:39] VITALS: BP 115/70; PULSE 95; RESP 16; TEMP 37.3; O2SAT 97; BMI 25.0
--- NOTE | 2019-08-20 14:53 | ED.DCSUM_ITS ---
- ER Visit Summary Date of Service: 08/20/19 Chief Complaint: Toothache, gingival abscess History of Present Illness: The patient is a 24 F who complains of a toothache and gingival abscess. She states that she noticed this abscess yesterday. It then popped and some purulent material came out of it. She had some mild left- sided facial swelling yesterday. She has been taking Excedrin at home which helps with her pain. She does not see a dentist. She denies any fevers. She is a non-smoker. Physical Examination: Vital signs are reviewed. Mouth exam reveals widespread dental decay. She has no specific tenderness to tooth percussion. I see no focal gingival abscesses. No Mike angina. Uvula is midline. She has no cervical lymphadenopathy. Test Results: None is performed Emergency Department Course and Treatment: Patient will be treated with penicillin at home. She will continue the Excedrin. I will give her dental follow-up Treatment Plan: [] Disposition: Discharge Impression: Odontalgia This note was generated with [employer] dictation software. It may contain incorrect words, spelling, and punctuation that were not noted in review of the chart prior to signing ED Disposition - Plan for ED Patient: Disposition: Home or Assisted Living Instructions: ED Tooth Pain Prescriptions: Penicillin V Potassium 500 mg PO 4X/DAY #28 tab Transmission Status: Pending to [facility] Referrals: Rose Esquivel NP-C [Primary Care Provider] -
[2019-08-20 15:05] VITALS: BP 134/72; PULSE 68; RESP 18; O2SAT 97
== END 2019-08-20 15:07 | disposition home or self-care (01) ==
LOC: ED 15:00
PROVIDERS: Emergency Provider Emergency Medicine; PCP Nurse Practitioner Family
DX: K08.89 Other specified disorders of teeth and supporting structures (principal); K05.319 Chronic periodontitis, localized, unspecified severity; K02.9 Dental caries, unspecified; E10.8 Type 1 diabetes mellitus with unspecified complications; Z79.4 Long term (current) use of insulin
CPT/HCPCS: 99282

== ENCOUNTER 2019-09-20 21:13 | Emergency (ER) | payer MEDICAID, SELFPAY ==
[2019-09-20 21:14] VITALS: BP 139/81; PULSE 73; RESP 18; TEMP 36.7; O2SAT 98; BMI 25.0
--- NOTE | 2019-09-20 21:51 | ED.VISSUMM ---
- ER Visit Summary Date of Service: 09/20/19 Chief Complaint: Dental pain History of Present Illness: The patient is a 24 F who presents with dental pain that is been constant for the past month. Patient states she was seen here 2 weeks ago however records show that it was 1 month ago that she was seen here. Patient states she was given a prescription for penicillin at that time. Patient states she was unable to keep it down because it made her nauseated. Patient states she quit taking the penicillin because of the nausea and vomiting. Patient states she is unable to see her dentist but has an appointment at the end of this month. Patient denies any fevers or chills. Patient admits to some pressure over her left maxillary sinus area. Patient admits to some rhinorrhea. Patient also admits to some cold sensitivity. Physical Examination: Vital signs are stable. Patient is afebrile. Patient is in no acute distress. Oral mucosa is pink and moist. There are dental caries over the upper third molars bilaterally. There is some gingival edema on the left. There is no fluctuance or evidence of any abscess. Oropharynx is clear. Neck is supple. Trachea is midline. There is no JVD or lymphadenopathy. There is no sublingual edema or evidence of Mike angina. There is some mild left maxillary sinus tenderness to percussion. Heart was regular rate and rhythm. Lungs are clear and equal bilaterally. Abdomen is soft and nontender. Cranial nerves II through XII are intact. There are no focal motor or sensory deficits. Emergency Department Course and Treatment: Patient was given a dose of Augmentin here. Patient was given a prescription for Augmentin. Patient was instructed to follow-up with her dentist as scheduled. Patient understood and was agreeable with the plan. All questions were answered. Disposition: Discharge home Impression: Infected dental caries This note was generated with [employer] dictation software. It may contain incorrect words, spelling, and punctuation that were not noted in review of the chart prior to signing ED Disposition - Plan for ED Patient: Disposition: Home or Assisted Living Diagnosis: Infected dental caries Instructions: ED CAVITY Dental Prescriptions: Amox/Clavulanate Tablet [Augmentin Tablet] 875 mg PO Q12H #20 tab Prescription Printed Referrals: Rose Esquivel NP-C [Primary Care Provider] - 5-7 Days
[2019-09-20 22:11] VITALS: RESP 18
[2019-09-20] MEDS: Amox/Clavulanate 875 MG Tablet PO (22:11)
== END 2019-09-20 22:11 | disposition home or self-care (01) ==
LOC: ED 22:03
PROVIDERS: Emergency Provider Emergency Medicine; PCP Nurse Practitioner Family
DX: K04.7 Periapical abscess without sinus (principal); K02.9 Dental caries, unspecified; E11.9 Type 2 diabetes mellitus without complications; J34.89 Other specified disorders of nose and nasal sinuses; Z79.4 Long term (current) use of insulin; Z79.899 Other long term (current) drug therapy
CPT/HCPCS: 99283

== ENCOUNTER 2019-11-10 12:52 | Emergency (ER) | payer MEDICAID, SELFPAY ==
[2019-11-10 12:54] VITALS: BP 114/70; PULSE 83; RESP 14; TEMP 36.6; O2SAT 98; BMI 25.6
--- NOTE | 2019-11-10 13:14 | CT_ITS ---
STUDY: CT SOFT TISSUE NECK WITH CONTRAST REASON FOR EXAM: Female, 24 years old. LEFT TONSILLAR SWELLING RADIATION DOSAGE (If Supplied By Facility): CTDIvol = ( 17.08 ) mGy, DLP = ( 516.48 ) mGycm TECHNIQUE: The patient was scanned in a multi-detector CT scanner. High resolution transaxial imaging was performed following intravenous administration of IV 75mL Isovue-370. Sagittal and coronal images were reconstructed. Individualized dose optimization techniques were used for this CT. COMPARISON: None. FINDINGS: Normal bilateral parotid glands. Normal bilateral emt driver spaces. Normal bilateral parapharyngeal spaces. Normal bilateral carotid spaces. Normal bilateral sublingual and submandibular glands and spaces. Normal visualized nasopharynx. Normal retropharyngeal space. Normal perivertebral space. There are enlarged bilateral palatine tonsils without demonstrated fluid collections. There is mild narrowing of the oropharynx at this level. There are enlarged bilateral cervical lymph nodes with the most prominent lymph nodes at the left jugulodigastric region measuring up to 3 cm and right jugulodigastric region measuring up to 2.5 cm. There is no demonstrated solid or cystic mass lesion. There is no abnormal contrast enhancement. Normal epiglottis, bilateral vallecula and hypopharynx. The pre-epiglottic and paraglottic adipose spaces are normal. Normal visualized bilateral piriform sinuses, aryepiglottic folds, vocal cords, and arytenoid-cricoid articulations. Normal subglottic trachea. Normal bilateral lobes of the thyroid gland. Normal visualized pulmonary apices. CT/Soft Tissue Neck WITH Contrast IMPRESSION: Tonsillar enlargement without abscess. Mild narrowing of the oropharynx Neck lymphadenopathy. Electronically Signed: Michaela Abel MD at 15:01 EDT Tel , Service support ,
[2019-11-10] MEDS: dexAMETHasone 4 MG Tablet PO (13:30)
--- NOTE | 2019-11-10 13:35 | ED.DCSUM_ITS ---
- ER Visit Summary Date of Service: 11/10/19 Chief Complaint: Sore throat History of Present Illness: The patient is a 24 F presenting with sore throat and enlarged tonsils. Patient states she has had enlarged tonsils in the past. She felt like her left tonsil was more swollen than usual. She noted white spots in the back of her throat. She denies fever. She has painful swallowing but no difficulty swallowing. Denies other complaints. Physical Examination: Vitals are stable. Patient is afebrile. Alert no acute distress. HEENT exam left greater than right tonsillar enlargement, uvula midline Neck is supple. Lungs are clear and equal bilaterally. Heart is regular rate and rhythm. Abdomen is soft nontender nondistended. Extremities are unremarkable. Skin is warm and dry. Remainder of exam is unremarkable. Emergency Department Course and Treatment: Patient was given decadron. CT soft tissue neck shows tonsillar enlargement without abscess. Mild narrowing of the oropharynx. Neck lymphadenopathy. Rapid strep negative. Patient has history of previous tonsillar stones and I feel that the white spots are likely tonsil stones. She is given ENT for follow-up. Advised to return to ED for worsening complaints. Disposition: Discharge home Impression: Pharyngitis This note was generated with [employer] dictation software. It may contain incorrect words, spelling, and punctuation that were not noted in review of the chart prior to signing ED Disposition - Plan for ED Patient: Disposition: Home or Assisted Living Instructions: ED Pharyngitis Viral Referrals: Aamir Hammer MD [STAFF PHYSICIAN] - Rose Esquivel NP-C [Primary Care Provider] -
[2019-11-10 14:02] LABS: Anion Gap 6 (5-15); BUN 11 mg/dL (7-18); BUN/Creat Ratio 15.9 RATIO (10-20); Calcium,Total 8.9 mg/dL (8.5-10.1); Chloride 104 mmol/L (98-107); Creatinine, Serum 0.69 mg/dL (0.55-1.02); EST Glomerular Filtration Rate 110 mL/min (>60); Est Glom Filt Rate - Afr Amer 134 mL/min (>60); Estimated Creatinine Clearance 122.26 ml/min; Glucose 279 mg/dL (74-106); Potassium 3.8 mmol/L (3.5-5.1); Sodium Level 139 mmol/L (136-145)
[2019-11-10 14:25] VITALS: RESP 18
--- NOTE | 2019-11-10 15:08 | ED.DEP ---
ED Disposition - Plan for ED Patient: Instructions: ED Pharyngitis Viral Referrals: Rose Esquivel NP-C [Primary Care Provider] - Aamir Hammer MD [STAFF PHYSICIAN] -
[2019-11-10 15:17] VITALS: BP 115/84; PULSE 74; RESP 16; TEMP 36.8; O2SAT 99
--- NOTE | 2019-11-10 15:18 | ED.RN ---
REVIEWED D/C INSTRUCTIONS, FOLLOW UP CARE, AND S/S THAT WOULD WARRANT A RETURN TO THE ED WITH PT. PT VERBALIZED AN UNDERSTANDING AND DENIES FURTHER QUESTIONS FOR THIS RN. PT SKIN P/W/D, RESP EVEN AND UNLABORED, PT A&O X 3, NO DISTRESS NOTED. PT AMBULATED OUT OF ED, GAIT STEADY.
== END 2019-11-10 15:20 | disposition home or self-care (01) ==
LOC: ED 13:50
PROVIDERS: Emergency Provider Emergency Medicine; PCP Nurse Practitioner Family
DX: J02.9 Acute pharyngitis, unspecified (principal); E11.9 Type 2 diabetes mellitus without complications; Z79.4 Long term (current) use of insulin
CPT/HCPCS: 70491; 80048; 87880; 99283; Q9967; A4216

== ENCOUNTER 2019-12-03 22:56 | Emergency (ER) | payer MEDICAID, SELFPAY ==
[2019-12-03 22:57] VITALS: BP 129/87; PULSE 70; RESP 16; TEMP 36.2; O2SAT 98; BMI 18.1
--- NOTE | 2019-12-03 23:27 | ED.VIS.GEN ---
History of Present Illness Chief Complaint: Suicidal Informant: Patient Narrative: Presents with suicidal thoughts. She states she wants to kill herself. She denies any specific plan at this time but does to hurt herself. She stated she has had these thoughts in the past. Has any illicit drug use. Denies . She stated she has been under a lot of stress and feels depressed - Past Medical History (1) Fibroadenoma of left breast Status: Acute Past Medical History - Allergies and Home Meds Allergies/Adverse Reactions: Allergies No Known Allergies Allergy (Verified 12/03/19 23:00) Primary Care Physician: [place] [GROUP OF PHYSICIANS] - Prior records reviewed: Yes Past Medical History: - - Viewed Surgical History: - - Reviewed Lives: With Family Smoking Status: Former smoker Alcohol: None Drugs: None Review of Systems General: Denies: Chills, Fever, Sweats Eyes: Denies: Visual changes - bilaterally, Diplopia ENT: Denies: Rhinorrhea, Sore throat Cardiovascular: Denies: Chest pain, Palpitations Respiratory: Denies: Dyspnea, Cough, Dyspnea on exertion Gastrointestinal: Denies: Abdominal pain, Nausea, Vomiting, Diarrhea, Melena, Hematochezia Genitourinary: Denies: Dysuria, Hematuria, Frequency Musculoskeletal: Denies: Back pain, Extremity Pain Skin: Denies: Rash, Wounds Neurological: Denies: Headache, Weakness, Numbness Psych: Reports: Depression, Suicidal thoughts Physical Exam Vital Signs/Narrative: Vital Signs Temp Pulse Resp BP Pulse Ox 12/03/19 22:57 97.2 F L 70 16 129/87 H 98 General: Well nourished, Well developed, No Acute Distress Head: Normocephalic, Atraumatic Eyes: Perrl, EOMI ENT: Moist mucous membranes, No rhinorrhea Neck: Supple, Nontender Cardiovascular: Regular rate, Regular rhythm, No murmurs Respiratory: No distress, CTA bilaterally, Chest nontender Abdomen: Soft, Nontender, Nondistended, Normal bowel sounds Back: Nontender, Normal Inspection Extremities: Nontender, No edema Skin: Normal color, No rash Neurological: Alert, Oriented x3, Cranial nerves II-XII grossly intact, Normal Strength, Normal Sensation Psychological: Depressed Diagnostic/Tx/Re-eval - Medical Decision Making Patient will undergo medical clearance. She will be pink slipped. She will be admitted for psychiatric evaluation for suicidal ideation. Lab work shows nothing acute. CBC BMP normal. Positive marijuana in her urine tox. Alcohol negative. Patient seen by crisis. Patient consented for safety. Boyfriend agrees. She does not have a specific plan to hurt herself. She will be discharged to follow-up ED Disposition - Plan for ED Patient: Disposition: Home or Assisted Living Diagnosis: Suicidal ideation Instructions: ED Depression, CONTRACT, No Harm Referrals: [facility] [GROUP OF PHYSICIANS] -
[2019-12-04 00:02] LABS: Absolute Lymphocyte Count 2.25 X10^3/uL (0.83-4.51); Absolute Neutrophil Count 4.7 X10^3/uL (2.0-7.7); Basophil# 0.02 X10^3/uL; Basophil% 0.3 % (0-1); Eosinophil# 0.23 X10^3/uL; Hematocrit 39.3 % (37-47); Hemoglobin 12.3 g/dL (12.0-15.0); Lymphocyte # 2.25 X10^3/ul (4.0); Lymphocyte % 29.2 % (19-41); Mean Corp Hgb Conc 31.3 g/dL (32-36); Mean Corpuscular Volume 83.1 fL (81-99); Mean Platelet Vol. 10.1 fl (6.2-12.0); Monocyte# 0.51 X10^3/uL; Monocyte% 6.6 % (0-10); NRBC Flagged by Analyzer 0 % (0-5); Neutrophil # 4.66 X10^3/uL (2.7-7.7); Neutrophil % 60.4 % (47-70); Platelet Count 272 K/mm3 (150-450); RBC Distribution Width CV 15.7 % (11.6-14.6); Red Blood Count 4.73 M/mm3 (4.2-5.4); White Blood Count 7.7 K/mm3 (4.4-11.0)
[2019-12-04 00:09] LABS: Amphetamine Urine VISTA NEGATIVE (<1000 ng/mL); Barbiturate Urine VISTA NEGATIVE (< 200 ng/mL); Benzodiazepine Urine VISTA NEGATIVE (< 200 ng/mL); Cocaine Urine VISTA NEGATIVE (< 300 ng/mL); Ecstacy Urine VISTA NEGATIVE (< 500 ng/mL); Methadone Urine VISTA NEGATIVE (< 300 ng/mL); PCP Urine VISTA NEGATIVE (< 25 ng/mL); THC Urine VISTA POSITIVE (< 50 ng/mL); Vista UDS pH Range 5
[2019-12-04 00:15] LABS: Internal QC Validated? YES +Cl - CLEAR BKGD; Pregnancy, Serum, hCG Quali. NEGATIVE Negative
[2019-12-04 00:17] LABS: Alcohol, Blood (Medical)-Serum < 3.0 mg/dL
[2019-12-04 00:19] LABS: Anion Gap 5 (5-15); BUN 11 mg/dL (7-18); Calcium,Total 8.7 mg/dL (8.5-10.1); Chloride 106 mmol/L (98-107); Creatinine, Serum 0.52 mg/dL (0.55-1.02); EST Glomerular Filtration Rate 151 mL/min (>60); Est Glom Filt Rate - Afr Amer 183 mL/min (>60); Estimated Creatinine Clearance 138.57 ml/min; Glucose 115 mg/dL (74-106); Potassium 3.5 mmol/L (3.5-5.1); Sodium Level 140 mmol/L (136-145)
[2019-12-04 00:48] VITALS: RESP 14
--- NOTE | 2019-12-04 01:21 | ED.RN ---
information faced to crisis at this time
--- NOTE | 2019-12-04 01:43 | ED.RN ---
crisis called to speak with patient at this time
[2019-12-04 01:48] VITALS: RESP 16
[2019-12-04 02:23] VITALS: BP 118/64; PULSE 74; RESP 16; O2SAT 98
== END 2019-12-04 02:29 | disposition home or self-care (01) ==
PROVIDERS: Emergency Provider Emergency Medicine; PCP Nurse Practitioner Family
DX: F32.9 Major depressive disorder, single episode, unspecified (principal); R45.851 Suicidal ideations; Z87.891 Personal history of nicotine dependence
CPT/HCPCS: 80048; 80307; 80320; 84703; 85025; 99283; G0480

== ENCOUNTER → 2019-12-21 | Outpatient (CLI) | payer MEDICAID, SELFPAY ==
[2019-12-03 22:57] VITALS: BMI 18.1
[2019-12-21 18:24] LABS: Chlamydia Trachomatis by PCR Negative (Negative); Neisserai gonorrhoeae by PCR Negative (Negative); Probe Check PASS; Sample Adequacy Control PASS; Specimen Processing Control PASS
== END | disposition home or self-care (01) ==
LOC: LABSPEC 13:55
PROVIDERS: PCP Nurse Practitioner Family; Visit Provider Student in an Organized Health Care Education/Training Program
DX: Z11.3 Encounter for screening for infections with a predominantly sexual mode of transmission (principal)
CPT/HCPCS: 87491; 87591

== ENCOUNTER 2020-03-05 13:09 | Emergency (ER) | payer MEDICAID, SELFPAY ==
[2020-03-05 13:10] VITALS: BP 125/88; PULSE 109; RESP 16; TEMP 36.7; O2SAT 97; BMI 23.7
[2020-03-05 14:39] VITALS: BP 111/72; PULSE 109; RESP 14; O2SAT 98
[2020-03-05 14:44] LABS: Absolute Lymphocyte Count 1.33 X10^3/uL (0.83-4.51); Absolute Neutrophil Count 8.2 X10^3/uL (2.0-7.7); Basophil# 0.03 X10^3/uL; Basophil% 0.3 % (0-1); Eosinophil# 0.01 X10^3/uL; Eosinophils% 0.1 % (0-5); Hematocrit 41.4 % (37-47); Hemoglobin 12.9 g/dL (12.0-15.0); Lymphocyte # 1.33 X10^3/ul (4.0); Lymphocyte % 13.2 % (19-41); Mean Corp Hgb Conc 31.2 g/dL (32-36); Mean Corpuscular Hgb 25.8 pg (27.0-32.0); Mean Corpuscular Volume 82.8 fL (81-99); Mean Platelet Vol. 10.4 fl (6.2-12.0); Monocyte# 0.56 X10^3/uL; Monocyte% 5.5 % (0-10); NRBC Flagged by Analyzer 0 % (0-5); Neutrophil # 8.15 X10^3/uL (2.7-7.7); Neutrophil % 80.7 % (47-70); Platelet Count 306 K/mm3 (150-450); RBC Distribution Width CV 13.8 % (11.6-14.6); RBC Distribution Width SD 41.8 fl (35.1-43.9); White Blood Count 10.1 K/mm3 (4.4-11.0)
[2020-03-05 14:53] LABS: Internal QC Validated? YES +Cl - CLEAR BKGD; Pregnancy, Serum, hCG Quali. NEGATIVE Negative
--- NOTE | 2020-03-05 14:53 | ED.DCSUM_ITS ---
History of Present Illness Chief Complaint: Abd Pain Narrative: Patient presents with right upper quadrant abdominal pain for the past 3 to 4 weeks, it was intermittent she does not think it is related to food. She has no chest pain or shortness of breath no fever or chills. This pain does not radiate into her back. She has no lower abdominal pain she has no nausea or vomiting. Past Medical History - Allergies and Home Meds Allergies/Adverse Reactions: Allergies No Known Allergies Allergy (Verified 03/05/20 13:12) Primary Care Physician: NOT,DEFINED [NON-STAFF] - Past Medical History: - - Diabetes, bipolar disorder Surgical History: - - Reviewed Smoking Status: Never smoker Review of Systems General: Denies: Fever ENT: Denies: Rhinorrhea, Sore throat Cardiovascular: Denies: Chest pain Respiratory: Denies: Dyspnea, Cough Gastrointestinal: Reports: Abdominal pain. Denies: Nausea, Vomiting, Diarrhea Genitourinary: Denies: Dysuria, Hematuria Musculoskeletal: Denies: Myalgias Skin: Denies: Rash Neurological: Denies: Headache Endocrine: Denies: Polyuria, Polydipsia Hematologic: Denies: Easy bruising Physical Exam Vital Signs/Narrative: Vital Signs Temp Pulse Resp BP Pulse Ox 03/05/20 14:39 109 H 14 111/72 98 03/05/20 13:10 98.1 F 109 H 16 125/88 H 97 General: Well nourished, - - Patient is relatively comfortable laying in bed. ENT: Moist mucous membranes Cardiovascular: Regular rate, Regular rhythm, No murmurs Respiratory: No distress, CTA bilaterally Abdomen: Soft, - - There is mild right upper quadrant abdominal pain negative Lopez's there is no epigastric pain no lower abdominal pain no pain no McBurney's. No guarding or rebound. The abdomen is quite benign. Back: Nontender, Normal Inspection Extremities: Nontender, No edema Skin: Normal color Neurological: Alert, Oriented x3 Diagnostic/Tx/Re-eval - Medical Decision Making Patient has an unremarkable work-up other than a small urinary tract infection for which I will treat otherwise her pain is epigastric and I will treat her as as a gastritis. Discharged in stable condition ED Disposition - Plan for ED Patient: Disposition: Home or Assisted Living Diagnosis: Epigastric pain, UTI (urinary tract infection) Instructions: ED Acute Pain UKO, ED CYSTITIS Female Adult Prescriptions: Smz/Tmp Ds [Bactrim Ds] 1 tab PO BID #10 tab Transmission Status: Pending to [facility] Omeprazole 20 mg PO DAILY #30 tablet.dr Transmission Status: Pending to [facility] Referrals: NOT,DEFINED [NON-STAFF] - 3-5 Days
--- NOTE | 2020-03-05 14:53 | US_ITS ---
STUDY: ABDOMINAL ULTRASOUND - RIGHT UPPER QUADRANT REASON FOR VISIT: Female, 25 years old PAIN-RUQ SEVERE, NAUSEA - EVERY 10 SECONDS TECHNIQUE: Ultrasound evaluation of the right upper quadrant was performed with real-time and static mcdowell-scale imaging. TECHNICAL QUALITY: Adequate. COMPARISON: None. FINDINGS: Liver: The liver measures 15.7 cm. There is normal echogenicity of the liver. The bile ducts are within normal limits. There is hepatic color flow. The direction of portal flow is hepatopetal. There is no demonstrated mass lesion. Gallbladder: Normal distended gallbladder. The gallbladder wall measures 2 mm. There is a negative sonographic Lopez''s sign. There is no pericholecystic fluid. There are no gallstones. Common Bile Duct (C.B.D.): The common bile duct measures 2 mm. Pancreas: Normal size of the head, body and tail of the pancreas. There is normal echogenicity of the pancreas. There is no demonstrated pancreatic mass or cyst. Right Kidney: Normal size of the right kidney. The right kidney measures 11.4 cm. Normal renal cortex. The right cortex measures 2.1 cm. There is no demonstrated renal mass or cyst. There is no right hydronephrosis. US/Abdomen Limited IMPRESSION: Normal right upper quadrant ultrasound examination. Electronically Signed: Rj Gonzalez MD at 16:25 EDT Tel , Service support ,
[2020-03-05 14:59] LABS: Anion Gap 10 (5-15); BUN 10 mg/dL (7-18); Calcium,Total 9.7 mg/dL (8.5-10.1); Chloride 101 mmol/L (98-107); Creatinine, Serum 0.77 mg/dL (0.55-1.02); EST Glomerular Filtration Rate 97 mL/min (>60); Est Glom Filt Rate - Afr Amer 117 mL/min (>60); Estimated Creatinine Clearance 112.67 ml/min; Glucose 298 mg/dL (74-106); Potassium 4.2 mmol/L (3.5-5.1); Sodium Level 136 mmol/L (136-145)
[2020-03-05 15:52] LABS: Bacteria 0 SEEN /hpf (None Seen); Mucous, Urine 0 SEEN /hpf (<or=2+); Red Blood Cells-Urine 0 SEEN /hpf (0-5)
[2020-03-05 15:54] LABS: Color, Urine Yellow (Yellow); Glucose, Dipstick 250 mg/dl (Normal); Leukocyte Esterase-Dipstick 25 /ul (Negative); Nitrite-Dipstick Positive (Negative); Occult Blood-Urine Negative /ul (Negative); Protein-Dipstick 30 mg/dl (Negative); Specific Gravity, Urine 1.025 (1.002-1.030); Urine Bilirubin Dipstick Negative (Negative); Urine Clarity Clear (Clear); Urine Urobilinogen Normal (Normal)
[2020-03-05 15:57] LABS: AST(SGOT) 8 U/L (15-37); Alanine Aminotransfer ALT/SGPT 18 U/L (13-56); Albumin, Serum 4.4 g/dL (3.2-5.0); Alkaline Phosphatase 82 U/L (45-117); Bilirubin, Direct 0.18 mg/dL (0.00-0.30); Lipase 33 U/L (73-393); Protein, Total 8.4 g/dL (6.4-8.2)
[2020-03-05 16:00] VITALS: BP 120/75; PULSE 106; RESP 18; O2SAT 97
[2020-03-05 16:09] LABS: Ketone-Dipstick 150 mg/dl (Negative)
[2020-03-05 16:11] LABS: Squamous Epithelial Cells - UA 0-5 SEEN /hpf (5-10); White Blood Cells 0-5 SEEN /hpf (0-5)
== END 2020-03-05 17:23 | disposition home or self-care (01) ==
PROVIDERS: Emergency Provider Emergency Medicine
DX: N39.0 Urinary tract infection, site not specified (principal); R10.13 Epigastric pain; R10.11 Right upper quadrant pain; E11.9 Type 2 diabetes mellitus without complications; F31.9 Bipolar disorder, unspecified; Z79.4 Long term (current) use of insulin; Z79.899 Other long term (current) drug therapy
CPT/HCPCS: 76705; 80048; 80076; 81001; 83690; 84703; 85025; 99283; A4216

== ENCOUNTER → 2020-03-24 | Outpatient (CLI) | payer MEDICAID, SELFPAY ==
[2020-03-05 13:10] VITALS: BMI 23.7
[2020-03-31 09:07] LABS: Chlamydia By Nucleic Acid AMP Negative (Negative); Gonococcus By Nucleic Acid AMP Negative (Negative); HSV 1 By PCR Negative (Negative)
[2020-03-31 09:42] LABS: HSV 2 By PCR Positive (Negative)
== END | disposition home or self-care (01) ==
LOC: LABSPEC 13:56
PROVIDERS: Visit Provider Student in an Organized Health Care Education/Training Program
DX: Z11.3 Encounter for screening for infections with a predominantly sexual mode of transmission (principal)
CPT/HCPCS: 87491; 87529; 87591

== ENCOUNTER 2021-01-20 19:01 | Emergency (ER) | payer MEDICAID, SELFPAY ==
[2021-01-20 19:02] VITALS: BP 103/79; PULSE 104; RESP 18; TEMP 37.8; O2SAT 98; BMI 28.1
== END 2021-01-20 22:19 | disposition left against medical advice (07) ==
LOC: ED 22:47
DX: Z53.21 Procedure and treatment not carried out due to patient leaving prior to being seen by health care provider (principal)
CPT/HCPCS: 87426

== ENCOUNTER 2021-06-15 14:35 | Outpatient (CLI) | payer MEDICAID, SELFPAY ==
[2021-06-15 16:09] LABS: Microalbumin:Creatinine Ratio 7.2 mg/g CRE (<30 mg/g CRE)
[2021-06-15 16:18] LABS: ALB/GLOB Ratio 0.9 RATIO (0.9-2.4); AST(SGOT) 5 U/L (15-37); Alanine Aminotransfer ALT/SGPT 16 U/L (13-56); Albumin, Serum 3.8 g/dL (3.2-5.0); Alkaline Phosphatase 74 U/L (45-117); Anion Gap 5 (5-15); BUN 12 mg/dL (7-18); BUN/Creat Ratio 21.3 RATIO (10-20); Calcium,Total 9.2 mg/dL (8.5-10.1); Chloride 105 mmol/L (98-107); Cholesterol 161 mg/dL (200); Creatinine, Serum 0.56 mg/dL (0.55-1.02); EST Glomerular Filtration Rate 138 mL/min (>60); Est Glom Filt Rate - Afr Amer 167 mL/min (>60); Globulin 4.1 g/dL (2.2-4.2); Glucose 57 mg/dL (74-106); High Density Lipoprotein 55 mg/dL; Potassium 3.6 mmol/L (3.5-5.1); Protein, Total 7.9 g/dL (6.4-8.2); Sodium Level 138 mmol/L (136-145); Thyroid Stim Hormone (TSH) 4.21 uIU/mL (0.358-3.74); Triglycerides 88 mg/dL; Very Low Density Lipoprotein 18 mg/dL (5-40)
[2021-06-15 17:52] LABS: Vitamin D,25 Hydroxy 16.2 ng/mL
[2021-06-17 13:27] LABS: Thyroid Peroxidase AB 348 IU/mL (0-34)
== END 2021-06-15 23:59 | disposition short-term general hospital (02) ==
LOC: LAB.FUTURE 14:36 → BIMLAB 06-16 12:03
PROVIDERS: Referring Provider Internal Medicine Endocrinology, Diabetes & Metabolism; Visit Provider Internal Medicine Endocrinology, Diabetes & Metabolism
DX: E10.65 Type 1 diabetes mellitus with hyperglycemia (principal); E10.42 Type 1 diabetes mellitus with diabetic polyneuropathy; E55.9 Vitamin D deficiency, unspecified
CPT/HCPCS: 36415; 80053; 80061; 82043; 82306; 82570; 84443; 86376

== ENCOUNTER → 2021-11-03 | Outpatient (CLI) | payer MEDICAID, SELFPAY | END | disposition home or self-care (01) | LOC: WOBLAB 12:11 | PROVIDERS: Visit Provider Obstetrics & Gynecology | DX: N39.0 Urinary tract infection, site not specified (principal) | CPT/HCPCS: 87077; 87086; 87088; 87186 ==

== ENCOUNTER → 2022-04-26 | Outpatient (CLI) | payer MEDICAID, SELFPAY ==
[2022-04-27 22:06] LABS: Chlamydia By Nucleic Acid AMP Negative (Negative)
[2022-04-28 11:04] LABS: Gonococcus By Nucleic Acid AMP Negative (Negative)
[2022-05-03 18:56] LABS: HPV Reflexed? NOT INDICATED
== END | disposition home or self-care (01) ==
LOC: LABSPEC 10:54
PROVIDERS: Visit Provider Student in an Organized Health Care Education/Training Program
DX: Z12.4 Encounter for screening for malignant neoplasm of cervix (principal); Z11.3 Encounter for screening for infections with a predominantly sexual mode of transmission
CPT/HCPCS: 87491; 87591; 88175; G0145

== ENCOUNTER → 2022-04-29 | Outpatient (CLI) | payer MEDICAID, SELFPAY ==
[2022-04-29 13:28] LABS: Vitamin D,25 Hydroxy 16.9 ng/mL
[2022-04-29 13:34] LABS: ALB/GLOB Ratio 0.9 RATIO (0.9-2.4); AST(SGOT) 3 U/L (15-37); Alanine Aminotransfer ALT/SGPT 15 U/L (13-56); Albumin, Serum 3.4 g/dL (3.2-5.0); Alkaline Phosphatase 52 U/L (45-117); Anion Gap 4 (5-15); BUN 8 mg/dL (7-18); BUN/Creat Ratio 13.6 RATIO (10-20); Calcium,Total 8.6 mg/dL (8.5-10.1); Chloride 106 mmol/L (98-107); Creatinine, Serum 0.59 mg/dL (0.55-1.02); EST Glomerular Filtration Rate 130 mL/min (>60); Est Glom Filt Rate - Afr Amer 157 mL/min (>60); Globulin 3.7 g/dL (2.2-4.2); Glucose 174 mg/dL (74-106); Potassium 4.1 mmol/L (3.5-5.1); Protein, Total 7.1 g/dL (6.4-8.2); Sodium Level 137 mmol/L (136-145); T4 Free Direct 0.85 ng/dL (0.76-1.46); Thyroid Stim Hormone (TSH) 3.34 uIU/mL (0.358-3.74)
[2022-04-29 13:51] LABS: hCG Titer Quant., Serum 4112 mIU/mL (1-3)
== END | disposition home or self-care (01) ==
LOC: LAB 11:20
PROVIDERS: Visit Provider Nurse Practitioner Family
DX: E11.9 Type 2 diabetes mellitus without complications (principal)
CPT/HCPCS: 36415; 80053; 82306; 84439; 84443; 84702

== ENCOUNTER 2022-05-05 18:02 | Emergency (ER) | payer MEDICAID, SELFPAY ==
[2022-05-05 18:03] VITALS: BP 117/77; PULSE 91; RESP 16; TEMP 36.6; O2SAT 97; BMI 28.8
[2022-05-05 18:26] LABS: Absolute Lymphocyte Count 2.03 X10^3/uL (0.83-4.51); Absolute Neutrophil Count 4.8 X10^3/uL (2.0-7.7); Basophil# 0.03 X10^3/uL; Basophil% 0.4 % (0-1); Eosinophil# 0.28 X10^3/uL; Eosinophils% 3.6 % (0-5); Hematocrit 38.5 % (37-47); Hemoglobin 12.3 g/dL (12.0-15.0); Lymphocyte # 2.03 X10^3/ul (0.83-4.51); Lymphocyte % 26.3 % (19-41); Mean Corp Hgb Conc 31.9 g/dL (32-36); Mean Corpuscular Hgb 27.3 pg (27.0-32.0); Mean Corpuscular Volume 85.4 fL (81-99); Mean Platelet Vol. 9.8 fl (6.2-12.0); Monocyte# 0.53 X10^3/uL; Monocyte% 6.9 % (0-10); NRBC Flagged by Analyzer 0 % (0-5); Neutrophil # 4.83 X10^3/uL (2.7-7.7); Neutrophil % 62.4 % (47-70); Platelet Count 317 K/mm3 (150-450); RBC Distribution Width CV 13.8 % (11.6-14.6); RBC Distribution Width SD 43.2 fl (35.1-43.9); Red Blood Count 4.51 M/mm3 (4.2-5.4); White Blood Count 7.7 K/mm3 (4.4-11.0)
[2022-05-05 18:31] LABS: Bacteria 0 SEEN /hpf (None Seen); Mucous, Urine 0 SEEN /hpf (<or=2+); Red Blood Cells-Urine 0 SEEN /hpf (0-5)
[2022-05-05 18:39] LABS: Color, Urine Yellow (Yellow); Glucose, Dipstick 250 mg/dl (Normal); Ketone-Dipstick 5 mg/dl (Negative); Leukocyte Esterase-Dipstick 25 /ul (Negative); Nitrite-Dipstick Negative (Negative); Occult Blood-Urine Negative /ul (Negative); Protein-Dipstick Negative (Negative); Specific Gravity, Urine 1.015 (1.002-1.030); Urine Bilirubin Dipstick Negative (Negative); Urine Clarity Clear (Clear); Urine Urobilinogen Normal (Normal)
[2022-05-05 18:41] LABS: Anion Gap 3 (5-15); BUN 17 mg/dL (7-18); BUN/Creat Ratio 22.3 RATIO (10-20); Calcium,Total 8.8 mg/dL (8.5-10.1); Chloride 106 mmol/L (98-107); Creatinine, Serum 0.76 mg/dL (0.55-1.02); EST Glomerular Filtration Rate 97 mL/min (>60); Est Glom Filt Rate - Afr Amer 117 mL/min (>60); Estimated Creatinine Clearance 108.13 ml/min; Glucose 256 mg/dL (74-106); Potassium 4.2 mmol/L (3.5-5.1); Sodium Level 137 mmol/L (136-145)
[2022-05-05 19:10] LABS: Squamous Epithelial Cells - UA 0-5 SEEN /hpf (5-10); White Blood Cells 0-5 SEEN /hpf (0-5)
[2022-05-05 19:33] LABS: hCG Titer Quant., Serum 19441 mIU/mL (1-3)
--- NOTE | 2022-05-05 19:45 | US_ITS ---
STUDY: FIRST TRIMESTER OBSTETRICAL ULTRASOUND REASON FOR EXAM: Female, 27 years old RLQ PAIN 6 WEEKS LMP: 03/21/2022 TECHNIQUE: Transvaginal TECHNICAL QUALITY: Adequate. PRIOR ULTRASOUND: None. FINDINGS: There is visualization of a single gestational sac in a normal intrauterine position. The mean sac diameter (MSD) measures 14 mm, indicating an estimated gestational age (EGA) of 6 weeks, 2 days. The gestational sac shape is within normal limits. Small adjacent subchorionic hemorrhage. There is a visualized yolk sac. The yolk sac measures 3 mm. The placenta is non-visualized. There is visualization of a live embryo. The crown-rump length (CRL) measures 3 mm, indicating an estimated gestational age (EGA) of 6 weeks, 1 days. There is demonstrated cardiac activity with a heart rate of 106 bpm. The estimated gestation age (EGA) by LMP is 6 weeks, 3 days. The estimated date of delivery (RADHA) by LMP is 12/26/2022. The estimated gestation age (EGA) by US is 6 weeks, 2 days. The estimated date of delivery (RADHA) by US is 12/27/2022. The uterus measures 10.2 x 6.9 x 5.1 cm. There is no demonstrated uterine fibroid. The cervix is closed. The right ovary measures 3.9 x 3.0 x 2.3 cm. There is no right ovarian cyst. There is no visualized right adnexal mass or complex lesion. The left ovary measures 2.6 x 1.8 x 1.67 m. There is no left ovarian cyst. There is no visualized left adnexal mass or complex lesion. There is no fluid in the cul de sac. US/Transvaginal w/Preg US IMPRESSION: Living intrauterine of 6 weeks 2 days as described above. Electronically Signed: Rj Gonzalez MD at 21:02 EST ,
--- NOTE | 2022-05-05 19:46 | ED.VIS.FEGU ---
HPI HPI - Female History of Present Illness Chief Complaint: Abd Pain Narrative Narrative: 27-year-old female at approximately 6 weeks gestation presents with right-sided pelvic pain that she is had for approximately 1 week. No true exacerbating or alleviating factors. She denies any fevers or chills. No nausea or vomiting. No vaginal bleeding. She states her last menstrual period was on March 21, 2022 and she just found out 2 weeks ago that she was . She does not have an appointment for an ultrasound until May 19, approximately 2 weeks from now. She is concerned regarding her right-sided pelvic pain. [facility] Medical History Diabetic polyneuropathy associated with type 1 diabetes mellitus Fibroadenoma of left breast Overweight (BMI 25.0-29.9) Polyneuropathy due to type 1 diabetes mellitus Type 1 diabetes Home Medications blood sugar diagnostic #100 ea 06/24/20 [Rx Last Taken Unknown] flash glucose scanning reader (FreeStyle Luisa 2 [place]) #1 ea 12/15/20 [Rx Last Taken Unknown] flash glucose sensor (FreeStyle Luisa 2 Sensor kit) #2 ea 12/03/21 [Rx Last Taken Unknown] insulin detemir U-100 100 unit/mL (3 mL) subcutaneous pen 40 unit (0.4 mL) subcut QHS #15 mL 12/03/21 [Rx Last Taken Unknown] insulin lispro 100 unit/mL subcutaneous pen 20 unit (0.2 mL) subcut TID #18 mL 12/03/21 [Rx Last Taken Unknown] pen needle, diabetic 32 gauge x 5/32 (1st Tier Unifine Pentips) #150 ea 12/03/21 [Rx Last Taken Unknown] levothyroxine 88 mcg capsule 88 mcg PO DAILY #90 caps 04/29/22 [Rx Last Taken Unknown] prenat.vits,mary ann,[id number] 1 tab PO DAILY 04/29/22 [History Last Taken Unknown] Allergy/AdvReac Type Severity Reaction Status Date / Time No Known Allergies Allergy Verified 05/05/22 18:03 Family History Mother Thyroid disorder Surgical History S/P section S/P left breast biopsy (~03/02/19) Tubal ligation status Social History Smoking Status: Former smoker alcohol intake: never ROS ROS ED ROS Narrative Constitutional: No fever, no chills. HEENT: No sore throat. No neck pain. No loss of vision. No rhinorrhea. Cardiovascular: No chest pain. No palpitations. No pedal edema. Respiratory: No cough, no shortness of breath. Abdominal: No abdominal pain. No nausea. No vomiting. Genitourinary: No dysuria. No hematuria. Right-sided pelvic pain. 6 weeks . Musculoskeletal: No myalgias. No arthralgias. Neurologic: No headaches. No dizziness. No lightheadedness. Skin: No rash. No change in color. Psychiatric: No depression. No anxiety. EXAM Physical Exam Narrative Exam Narrative: Afebrile. Vital signs noted. HEENT: Normocephalic. Atraumatic. PERRL, EOMI. Neck soft and supple. No point tenderness or step off. Cardiovascular: Regular rate and rhythm. No murmurs, rubs, or gallops appreciated. Respiratory: No tachypnea. Lungs clear to auscultation bilaterally. Gastrointestinal: Abdomen soft, nontender, with normoactive bowel sounds. No rebound or guarding. No pain over McBurney's point. Mild tenderness in right pelvic area. Genitourinary: Exam and affirm secondary to the patient denying vaginal discharge or vaginal bleeding. Neurological: Awake. Alert. Nonfocal, nonlateralizing. Skin: No rash. Normal color. No pallor. Musculoskeletal: No pedal edema. Full range of motion extremities. Const Vital Signs: 05/05/22 18:03 05/05/22 21:08 Temperature 97.9 F Temperature Source Temporal Pulse Rate 91 79 Respiratory Rate 16 15 Blood Pressure 117/77 104/74 Blood Pressure Mean 90 84 Pulse Ox 97 100 Oxygen Delivery Method Room Air Room Air MDM MDM MDM Narrative Medical decision making narrative: Nursing protocol laboratories were entered. CBC demonstrates normal white count of 7.7, hemoglobin of 12.3, platelet count normal at 317. Electrolyte panel is grossly unremarkable except for a low anion gap of 3. Glucose is elevated at 256. I do not feel that she is in diabetic ketoacidosis. hCG quant is elevated at 19,441. A transvaginal ultrasound will be obtained to help rule out ectopic . Urinalysis is negative for infection. Transvaginal ultrasound shows live intrauterine with heart rate of 106 with estimated gestational age of 6 weeks and 2 days. There was mention of possible subchorionic hemorrhage. No hemorrhagic cyst or adnexal mass to explain her right pelvic pain. At this point in time, I feel she be discharged safely home to follow-up with her TELECOMMUNICATOR, Dr. Bhavana Abarca. She is to call the office in a day to see if she needs a closer appointment then her ultrasound scheduled in May. She will continue vitamins [id number]. She was given instructions on threatened miscarriage. IFISH can be discharged safely home with follow-up. Return instructions were reviewed. Disposition is discharged home in stable condition. Lab Data Attestation: I reviewed the patient's lab results. Labs: Laboratory Results - last 24 hr 05/05/22 05/05/22 05/05/22 18:20 18:20 18:20 WBC 7.7 RBC 4.51 Hgb 12.3 Hct 38.5 MCV 85.4 MCH 27.3 MCHC 31.9 L RDW Std Deviation 43.2 RDW Coeff of Osmin 13.8 Plt Count 317 MPV 9.8 Immature Gran % (Auto) 0.400 Neut % (Auto) 62.4 Lymph % (Auto) 26.3 [place] % (Auto) 6.9 Eos % (Auto) 3.6 Baso % (Auto) 0.4 Absolute Neuts (auto) 4.8 Absolute Lymphs (auto) 2.03 Nucleated RBC % 0 Sodium 137 Potassium 4.2 Chloride 106 Carbon Dioxide 28.0 Anion Gap 3 L BUN 17 Creatinine 0.76 Estim Creat Clear Calc 108.13 Est GFR (MDRD) Af Amer 117 Est GFR (MDRD) Non-Af 97 BUN/Creatinine Ratio 22.3 H Glucose 256 H Calcium 8.8 HCG, Quant 49182 H Urine Color Urine Clarity Urine pH Ur Specific [place] Urine Protein Urine Glucose (UA) Urine Ketones Urine Occult Blood Urine Nitrite Urine Bilirubin Urine Urobilinogen Ur Leukocyte Esterase Urine RBC Urine WBC Ur Squamous Epith Cells Urine Bacteria Urine Mucus 05/05/22 18:25 WBC RBC Hgb Hct MCV MCH MCHC RDW Std Deviation RDW Coeff of Osmin Plt Count MPV Immature Gran % (Auto) Neut % (Auto) Lymph % (Auto) [place] % (Auto) Eos % (Auto) Baso % (Auto) Absolute Neuts (auto) Absolute Lymphs (auto) Nucleated RBC % Sodium Potassium Chloride Carbon Dioxide Anion Gap BUN Creatinine Estim Creat Clear Calc Est GFR (MDRD) Af Amer Est GFR (MDRD) Non-Af BUN/Creatinine Ratio Glucose Calcium HCG, Quant Urine Color Yellow Urine Clarity Clear Urine pH 7.0 Ur Specific [place] 1.015 Urine Protein Negative Urine Glucose (UA) 250 H Urine Ketones 5 H Urine Occult Blood Negative Urine Nitrite Negative Urine Bilirubin Negative Urine Urobilinogen Normal Ur Leukocyte Esterase 25 H Urine RBC 0 SEEN Urine WBC 0-5 SEEN Ur Squamous Epith Cells 0-5 SEEN Urine Bacteria 0 SEEN Urine Mucus 0 SEEN Radiography Diagnostic Testing: Clinical Impression(s) from Imaging Studies Obstetrics Ultrasound 05/05/22 19:45 IMPRESSION: Living intrauterine of 6 weeks 2 days as described above. Electronically Signed: Rj Gonzlaez MD at 21:02 EST , Discharge Plan Triage Chief Complaint: Abd Pain ED Provider: Fortino Freedman Dx/Rx/DC Orders Clinical Impression: Intrauterine , Pelvic pain during , Threatened miscarriage, Subchorionic hemorrhage Instructions: ED Abdominal Pain, Early , ED Possible Miscarriage ..., ED Established ... Prescriptions: No Action (DME) blood sugar diagnostic Strip See Rx Instructions .ROUTE .MEDSUPPLY Qty: 100 6RF Rx Instructions: 3 times daily (DME) FreeStyle Luisa 2 [place] Misc See Rx Instructions .ROUTE .MEDSUPPLY Qty: 1 0RF Rx Instructions: As directed prenat.vits,mary ann,[id number] Tablet 1 tab PO DAILY (DME) FreeStyle Luisa 2 Sensor Kit See Rx Instructions .ROUTE .MEDSUPPLY Qty: 2 6RF Rx Instructions: 1 sensor q 14 days insulin detemir U-100 100 unit/mL (3 mL) insulin pen 40 unit SC QHS Qty: 15 5RF insulin lispro 100 unit/mL insulin pen 20 unit SC TID Qty: 18 5RF Label Comments: pt states she is on a sliding scale, unsure of sliding scale (DME) pen needle, diabetic [1st Tier Unifine Pentips] 32 gauge x 5/32 needle See Rx Instructions .ROUTE .MEDSUPPLY Qty: 150 6RF Rx Instructions: qid levothyroxine 88 mcg capsule 88 mcg PO DAILY Qty: 90 1RF Primary Care Provider: Care Physician,No Primary Referrals: Bhavana Abarca, [Med Staff - Active Staff] - As soon as possible Care Physician,No Primary [Primary Care Provider] - Disposition Disposition: Home, Self Care
[2022-05-05 21:08] VITALS: BP 104/74; PULSE 79; RESP 15; O2SAT 100
[2022-05-05 21:22] VITALS: BP 113/77; PULSE 86; RESP 15; O2SAT 99
== END 2022-05-05 21:22 | disposition home or self-care (01) ==
PROVIDERS: Emergency Medicine; Emergency Provider Emergency Medicine; Visit Provider Emergency Medicine
DX: O20.0 Threatened abortion (principal); E10.42 Type 1 diabetes mellitus with diabetic polyneuropathy; E10.65 Type 1 diabetes mellitus with hyperglycemia; Z79.4 Long term (current) use of insulin; O24.011 Pre-existing type 1 diabetes mellitus, in pregnancy, first trimester; O20.8 Other hemorrhage in early pregnancy; O26.891 Other specified pregnancy related conditions, first trimester; Z79.890 Hormone replacement therapy; Z79.899 Other long term (current) drug therapy; Z3A.01 Less than 8 weeks gestation of pregnancy; Z87.891 Personal history of nicotine dependence
CPT/HCPCS: 76817; 80048; 81001; 84702; 85025; 99283; J7030; A4216

== ENCOUNTER → 2022-05-19 | Outpatient (CLI) | payer MEDICAID, SELFPAY ==
[2022-05-19 11:24] LABS: Absolute Lymphocyte Count 1.47 X10^3/uL (0.83-4.51); Absolute Neutrophil Count 4.7 X10^3/uL (2.0-7.7); Basophil# 0.02 X10^3/uL; Basophil% 0.3 % (0-1); Eosinophil# 0.24 X10^3/uL; Eosinophils% 3.5 % (0-5); Hematocrit 37.4 % (37-47); Hemoglobin 11.9 g/dL (12.0-15.0); Lymphocyte # 1.47 X10^3/ul (0.83-4.51); Lymphocyte % 21.6 % (19-41); Mean Corp Hgb Conc 31.8 g/dL (32-36); Mean Corpuscular Hgb 27.4 pg (27.0-32.0); Mean Corpuscular Volume 86.2 fL (81-99); Mean Platelet Vol. 10.6 fl (6.2-12.0); Monocyte# 0.37 X10^3/uL; Monocyte% 5.4 % (0-10); NRBC Flagged by Analyzer 0 % (0-5); Neutrophil # 4.67 X10^3/uL (2.7-7.7); Neutrophil % 68.8 % (47-70); Platelet Count 285 K/mm3 (150-450); RBC Distribution Width SD 43.9 fl (35.1-43.9); Red Blood Count 4.34 M/mm3 (4.2-5.4); White Blood Count 6.8 K/mm3 (4.4-11.0)
[2022-05-19 12:12] LABS: HIV - WCH Non-Reactive (Nonreactive); Hepatitis B Surface Antigen Non-Reactive (Nonreactive); Hepatitis C Antibody Non-Reactive (Nonreactive); Rubella IgG Reactive (Nonreactive); Syphilis Antibodies Non-reactive
[2022-05-21 19:28] LABS: V-Zoster IgG (Immunity) 684 index (Immune >165)
== END | disposition home or self-care (01) ==
LOC: WOBLAB 09:51
PROVIDERS: Visit Provider Student in an Organized Health Care Education/Training Program
DX: N91.2 Amenorrhea, unspecified (principal)
CPT/HCPCS: 36415; 85025; 86703; 86762; 86780; 86787; 86803; 87086; 87088; 87340

== ENCOUNTER → 2022-06-30 | Outpatient (CLI) | payer MEDICAID, SELFPAY ==
[2022-06-30 15:26] LABS: T4 Free Direct 0.86 ng/dL (0.76-1.46); Thyroid Stim Hormone (TSH) 1.98 uIU/mL (0.358-3.74)
== END | disposition home or self-care (01) ==
LOC: WOBLAB 14:37
PROVIDERS: Visit Provider Student in an Organized Health Care Education/Training Program
DX: Z34.82 Encounter for supervision of other normal pregnancy, second trimester (principal)
CPT/HCPCS: 36415; 84439; 84443

== ENCOUNTER → 2022-08-30 | Outpatient (CLI) | payer MEDICAID, SELFPAY ==
[2022-08-30 15:12] LABS: Absolute Neutrophil Count 8.5 X10^3/uL (2.0-7.7); Basophil# 0.04 X10^3/uL; Basophil% 0.3 % (0-1); Eosinophil# 0.39 X10^3/uL; Eosinophils% 3.3 % (0-5); Hematocrit 35.8 % (37-47); Mean Corp Hgb Conc 33.5 g/dL (32-36); Mean Corpuscular Hgb 28.8 pg (27.0-32.0); Mean Corpuscular Volume 86.1 fL (81-99); Mean Platelet Vol. 9.9 fl (6.2-12.0); Monocyte# 0.56 X10^3/uL; Monocyte% 4.8 % (0-10); NRBC Flagged by Analyzer 0 % (0-5); Neutrophil # 8.49 X10^3/uL (2.7-7.7); Neutrophil % 72.7 % (47-70); Platelet Count 264 K/mm3 (150-450); RBC Distribution Width CV 12.8 % (11.6-14.6); RBC Distribution Width SD 40.1 fl (35.1-43.9); Red Blood Count 4.16 M/mm3 (4.2-5.4); White Blood Count 11.7 K/mm3 (4.4-11.0)
[2022-08-30 16:08] LABS: Thyroid Stim Hormone (TSH) 7.48 uIU/mL (0.358-3.74)
[2022-08-30 16:19] LABS: Syphilis Antibodies Non-reactive
== END | disposition home or self-care (01) ==
LOC: WOBLAB 14:57
PROVIDERS: Visit Provider Student in an Organized Health Care Education/Training Program
DX: O99.282 Endocrine, nutritional and metabolic diseases complicating pregnancy, second trimester (principal); E03.9 Hypothyroidism, unspecified
CPT/HCPCS: 36415; 84443; 85025; 86780

== ENCOUNTER → 2022-09-13 | Outpatient (CLI) | payer MEDICAID, SELFPAY ==
[2022-09-13 12:41] LABS: Hemoglobin A1c 6.7 % (3.8-5.6)
[2022-09-13 12:53] LABS: Vitamin D,25 Hydroxy 35.5 ng/mL
[2022-09-13 13:13] LABS: Thyroid Stim Hormone (TSH) 1.59 uIU/mL (0.358-3.74)
== END | disposition home or self-care (01) ==
LOC: LAB 11:48
PROVIDERS: Referring Provider Nurse Practitioner; Visit Provider Nurse Practitioner
DX: O24.013 Pre-existing type 1 diabetes mellitus, in pregnancy, third trimester (principal); O99.283 Endocrine, nutritional and metabolic diseases complicating pregnancy, third trimester; E03.9 Hypothyroidism, unspecified; E55.9 Vitamin D deficiency, unspecified
CPT/HCPCS: 36415; 82306; 83036; 84443

== ENCOUNTER → 2022-12-02 | Outpatient (CLI) | payer MEDICAID, SELFPAY ==
[2022-12-02 13:59] LABS: Absolute Lymphocyte Count 1.62 X10^3/uL (0.83-4.51); Absolute Neutrophil Count 7.3 X10^3/uL (2.0-7.7); Basophil# 0.04 X10^3/uL; Basophil% 0.4 % (0-1); Eosinophil# 0.13 X10^3/uL; Eosinophils% 1.3 % (0-5); Hematocrit 33.2 % (37-47); Hemoglobin 10.4 g/dL (12.0-15.0); Lymphocyte # 1.62 X10^3/ul (0.83-4.51); Lymphocyte % 16.5 % (19-41); Mean Corp Hgb Conc 31.3 g/dL (32-36); Mean Platelet Vol. 10.4 fl (6.2-12.0); Monocyte# 0.56 X10^3/uL; Monocyte% 5.7 % (0-10); NRBC Flagged by Analyzer 0 % (0-5); Neutrophil % 74.5 % (47-70); Platelet Count 252 K/mm3 (150-450); RBC Distribution Width CV 14.1 % (11.6-14.6); White Blood Count 9.8 K/mm3 (4.4-11.0)
[2022-12-02 14:17] LABS: Hemoglobin A1c 7.3 % (3.8-5.6)
[2022-12-02 14:19] LABS: Thyroid Stim Hormone (TSH) 4.01 uIU/mL (0.358-3.74)
== END | disposition home or self-care (01) ==
LOC: WOBLAB 13:32
PROVIDERS: Visit Provider Obstetrics & Gynecology
DX: O24.913 Unspecified diabetes mellitus in pregnancy, third trimester (principal); E11.9 Type 2 diabetes mellitus without complications; Z36.85 Encounter for antenatal screening for Streptococcus B; R94.6 Abnormal results of thyroid function studies; O99.283 Endocrine, nutritional and metabolic diseases complicating pregnancy, third trimester; Z3A.00 Weeks of gestation of pregnancy not specified
CPT/HCPCS: 36415; 83036; 84443; 85025; 87081

== ENCOUNTER → 2022-12-09 | Outpatient (CLI) | payer MEDICAID, SELFPAY ==
[2022-12-09 15:09] LABS: T4 Free Direct 0.85 ng/dL (0.76-1.46)
[2022-12-13 15:07] LABS: Thyroglobulin Antibody < 1.0 IU/mL (0.0-0.9); Thyroid Peroxidase AB 93 IU/mL (0-34)
== END | disposition home or self-care (01) ==
LOC: LAB 13:53
PROVIDERS: Referring Provider Obstetrics & Gynecology; Visit Provider Obstetrics & Gynecology
DX: E03.9 Hypothyroidism, unspecified (principal)
CPT/HCPCS: 36415; 84439; 84443; 86376; 86800

== ENCOUNTER 2022-12-14 05:18 | Inpatient (IN) | payer MEDICAID, SELFPAY ==
[2022-12-14] VITALS (17 sets, daily range): BP systolic 64–122; BP diastolic 42–79; PULSE 70–95; RESP 14–16; TEMP 36.1–36.9; O2SAT 95–100; BMI 32.5
[2022-12-14] MEDS: Lactated Ringers 1,000 ML 999 ML IV (06:00)
[2022-12-14 06:12] LABS: Absolute Neutrophil Count 5.2 X10^3/uL (2.0-7.7); Basophil# 0.03 X10^3/uL; Basophil% 0.4 % (0-1); Eosinophil# 0.12 X10^3/uL; Eosinophils% 1.5 % (0-5); Hematocrit 32.8 % (37-47); Hemoglobin 10.5 g/dL (12.0-15.0); Lymphocyte % 25.1 % (19-41); Mean Corpuscular Hgb 26.3 pg (27.0-32.0); Mean Platelet Vol. 10.6 fl (6.2-12.0); Monocyte# 0.59 X10^3/uL; Monocyte% 7.4 % (0-10); NRBC Flagged by Analyzer 0 % (0-5); Neutrophil # 5.15 X10^3/uL (2.7-7.7); Neutrophil % 64.7 % (47-70); Platelet Count 201 K/mm3 (150-450); RBC Distribution Width SD 41.3 fl (35.1-43.9)
[2022-12-14 06:39] LABS: Bedside Glucose 235 mg/dL (74-106)
[2022-12-14] MEDS: Insulin Lispro 100 UNIT/ML INSULN.PEN 15 UNIT SC (06:40)
[2022-12-14] MEDS: Acetaminophen 500 MG Tablet 1000 MG PO ×4 (06:44→23:35)
--- NOTE | 2022-12-14 06:57 | HP.PCM.OB_ITS ---
History and Physical Date of Admission: 12/14/22 Chief complaint: Repeat section History present illness: 27-year-old at 37 weeks and 4 days with RADHA 12/31/2022 arrives for repeat section for pregestational diabetic. Denies headache, vision change, chest pain, shortness of breath, nausea vomit, right upper quadrant pain. Patient states good movement. is complicated by pregestational diabetes, BMI 32, history of drug use, hypothyroid Surgical history: G1: 39-week female 8 pounds G2: 36-week section G3: Current Past medical history: Pregestational diabetes, hypothyroid Medications: Levemir, Humalog, Synthroid Past surgical history: section Allergies: No known drug allergies Social history: Former smoker, former use of THC and heroin. Denies alcohol use Family history: Denies history DVT or PE Review of systems: Besides above pertinent positives a full review of systems was performed and found to be negative Physical exam: Vitals: Blood pressure 122/79 pulse 80 temperature 97.9 ?F SPO2 97% on room air General: Normal-appearing no acute distress HEENT: Normocephalic/atraumatic no cervical lymphadenopathy Cardiac/respiratory: No use of accessory muscles, nonlabored breathing Abdomen: Soft, nontender, gravid Extremities: No peripheral edema normal peripheral pulses Psych: Anxious otherwise normal demeanor nonpressured speech Labs: White blood cell count 8.0 hemoglobin 10.5 hematocrit 32.8% platelets 201. Bedside blood sugar 235. Blood type a positive antibody negative Assessment and plan: Called by nursing with elevated blood blood sugar, saw M yesterday and is controlled by [facility] for blood sugars. Given orders for Humalog 15 units now and t o retest blood sugar in 30 minutes after given Humalog. Discussed with nursing will plan on long-acting and short acting insulin after surgery pending blood sugars. Called back by nursing with late decelerations, given order nursing to continuously monitor. Discussed with nursing will perform section at soonest capability informed by nursing that operating room was being used and is now being cleaned for use. Patient seen and examined. 27-year-old at 37 weeks and 4 days for repeat section with pregestational diabetes. Educated patient on risk benefits alternatives of the procedure. Include but are not limited to visceral vascular injury, prolonged hospitalization, blood loss need for transfusion, reoperation. Patient state understanding wish to proceed. All questions were answered and consent was signed. For section now discussed with nursing and operative team. Informed retail receiving clerk to be present for delivery and patient's HPI. Educated patient on risks for with elevated blood sugars prior to delivery, patient states understanding. heart tones improved but with former decelerations will perform section now
[2022-12-14] MEDS: Lactated Ringers 1,000 ML 150 ML IV (07:01)
[2022-12-14] MEDS: Sodium Citrate/Citric Acid 30 ML UDC PO (07:05)
[2022-12-14] MEDS: Cefazolin 2 GM in 0.9% Normal Saline 100 ML IV (07:13)
[2022-12-14 08:03] LABS: Bedside Glucose 232 mg/dL (74-106)
[2022-12-14 08:04] LABS: Syphilis Antibodies Non-reactive
--- NOTE | 2022-12-14 08:07 | NURSING ---
Urine tox collected upon admission prior to spinal. Verbal consent obtained from mother. Urine collected and sent to lab on hold. Plan to obtain written consent after c/s.
--- NOTE | 2022-12-14 08:10 | EX.PCM.OBRPT ---
Details Operative Information Date of Procedure: 12/14/22 Pre-Operative Diagnosis: Term, pregestational diabetes, history of section Post-Operative Diagnosis: Term, pregestational diabetes, history of section occupational health nurse manager #1: Alfredo Teran Findings Description of Procedure: Procedure: Repeat low transverse section via Pfannenstiel incision Surgeon: Neville Abarca MD Anesthesia: Spinal EBL: 700 cc Urine output: 200 cc IV fluids: 1000 cc Complications: None Specimen: None Findings: Male in vertex position Apgars 9/9. Normal uterus, tubes, and ovaries. Consent: Patient with history of section at term desires repeat low-transverse section Via Pfannenstiel incision. Patient understands risk of the procedure include but are not limited to visceral vascular injury, prolonged hospitalization, blood loss need for transfusion, reoperation. Patient state understanding wish to proceed. All questions were answered and consent was signed. Procedure: Patient was brought back to the OR where spinal anesthesia was found to be adequate. 2 g Ancef were given for infection prophylaxis. Patient was prepared and draped in a supine position with leftward tilt. A Pfannenstiel incision was made at the skin with a scalpel. The incision was carried down to the fascia with a scalpel. The fascia was excised and extended laterally. Inferior aspect of the fascia was grasped with a clamp and the underlying rectus and pyramidalis muscle were dissected off sharply with Diehl scissors. In similar aspect the superior aspect of the fascia was grasped with a clamp and the underlying rectus muscle was dissected off sharply. Rectus muscle was dissected at the midline down to the level of the pubic symphysis. Preperitoneal fatty tissue was noted peritoneum is entered bluntly. Peritoneum was extended superiorly and inferiorly with good visualization of bladder. Bladder blade was inserted vesicouterine peritoneum was identified. Low transverse hysterotomy was made. Hand was placed in the incision and gentle fundal pressure was applied once the head was brought into the incision and the bladder blade was removed. Head and shoulders were delivered with ease. Cord was clamped and cut. Baby handed off to nursing. IV oxytocin was initiated to facilitate uterine contractions. Placenta was delivered via cord traction and fundal massage. Uterus was exteriorized and wiped out with dry laparotomy sponge in order to remove remaining placental membranes. Uterus was closed in continuous running fashion. [id number] sutures were used for hemostasis, good hemostasis was noted. Uterus was placed back in the abdominal cavity and the incision was reinspected, good hemostasis was noted. Daniel was placed over the incision, good hemostasis was noted. Fascia was closed in continuous running fashion with PDS suture. Subcutaneous irrigation was performed, good hemostasis was noted. Skin was closed in subcuticular fashion. Good hemostasis was noted. All counts were correct x2. Patient tolerated procedure well and was brought to recovery in stable condition.
[2022-12-14 08:13] LABS: Amphetamine Urine VISTA NEGATIVE (<1000 ng/mL); Barbiturate Urine VISTA NEGATIVE (< 200 ng/mL); Benzodiazepine Urine VISTA NEGATIVE (< 200 ng/mL); Cocaine Urine VISTA NEGATIVE (< 300 ng/mL); Ecstacy Urine VISTA NEGATIVE (< 500 ng/mL); Methadone Urine VISTA NEGATIVE (< 300 ng/mL); PCP Urine VISTA NEGATIVE (< 25 ng/mL); THC Urine VISTA POSITIVE (< 50 ng/mL); Vista UDS pH Range 6
[2022-12-14] MEDS: Oxytocin 15 Units/NS 250ml 15 UNITS/250 ML IV.SOLN 83 UNITS IV (08:30)
[2022-12-14] MEDS: Ketorolac 30 MG/ML Syringe IV ×3 (09:45→22:24)
[2022-12-14 10:55] LABS: Bedside Glucose 175 mg/dL (74-106)
[2022-12-14 11:11] LABS: Amphetamine Urine VISTA NEGATIVE (<1000 ng/mL); Barbiturate Urine VISTA NEGATIVE (< 200 ng/mL); Benzodiazepine Urine VISTA NEGATIVE (< 200 ng/mL); Cocaine Urine VISTA NEGATIVE (< 300 ng/mL); Ecstacy Urine VISTA NEGATIVE (< 500 ng/mL); Methadone Urine VISTA NEGATIVE (< 300 ng/mL); PCP Urine VISTA NEGATIVE (< 25 ng/mL); THC Urine VISTA POSITIVE (< 50 ng/mL); Vista UDS pH Range 5
[2022-12-14] MEDS: Lactated Ringers 1,000 ML 100 ML IV (11:30)
[2022-12-14] MEDS: Levothyroxine 88 MCG Tablet PO (11:40)
[2022-12-14] MEDS: Cefazolin 1 GM/50 ML BAG IV ×2 (12:54→21:03)
[2022-12-14 16:26] LABS: Bedside Glucose 127 mg/dL (74-106)
[2022-12-14] MEDS: Insulin Lispro 100 UNIT/ML INSULN.PEN SC (17:56)
[2022-12-14] MEDS: Enoxaparin 40 MG/0.4 ML Syringe SC (21:03)
[2022-12-14] MEDS: Insulin Glargine-YFGN 100 UNIT/ML Pen 20 UNIT SC (22:14)
[2022-12-14 22:40] LABS: Bedside Glucose 130 mg/dL (74-106)
[2022-12-15] MEDS: 0.9% Saline Lock 10 ML Syringe IV (04:16)
[2022-12-15] MEDS: Ketorolac 30 MG/ML Syringe IV (04:16)
[2022-12-15 04:24] VITALS: BP 97/61; PULSE 71; RESP 15; O2SAT 99
[2022-12-15] MEDS: Levothyroxine 88 MCG Tablet PO (05:45)
[2022-12-15] MEDS: Acetaminophen 500 MG Tablet 1000 MG PO ×2 (05:46→11:56)
[2022-12-15 05:58] LABS: Hematocrit 25.5 % (37-47); Mean Corp Hgb Conc 31.4 g/dL (32-36); Mean Corpuscular Hgb 25.7 pg (27.0-32.0); Platelet Count 171 K/mm3 (150-450); RBC Distribution Width SD 41.7 fl (35.1-43.9); Red Blood Count 3.11 M/mm3 (4.2-5.4); White Blood Count 8.5 K/mm3 (4.4-11.0)
--- NOTE | 2022-12-15 06:25 | PN.OBGYN_ITS ---
Subjective Subjective Patient feeling well. Lochia minimal. Pain controlled. Breast-feeding going well. Objective Data Objective Data Vital Signs: Vital Signs Temp Pulse Resp BP Pulse Ox O2 Del Method 97.0 F L 71 15 97/61 99 Room Air 12/14/22 23:43 12/15/22 04:24 12/15/22 04:24 12/15/22 04:24 12/15/22 04:24 12/15/22 04:24 Oxygen Delivery Method Room Air Weight: 94.3 kg Body Mass Index (BMI) 32.5 Intake & Output: Intake and Output for Last 24 Hours 12/13/22 12/14/22 12/15/22 23:59 23:59 23:59 Intake Total 2385 / 2385 Output Total 850 / 850 900 / 900 Balance 1535 / 1535 -900 / -900 Lab / Micro Data Attestation: I reviewed the patient's lab results. 12/15/22 05:50 Labs: Laboratory Results - last 24 hr 12/14/22 06:00: Syphilis Total Ab Non-reactive, Blood Type A POSITIVE, Antibody Screen NEGATIVE 12/14/22 06:20: POC Glucose 235 H 12/14/22 07:00: Urine Opiates Screen NEGATIVE, Urine Methadone Screen NEGATIVE, Ur Barbiturates Screen NEGATIVE, Ur Phencyclidine Scrn NEGATIVE, Ur Amphetamines Screen NEGATIVE, MDMA (Ecstasy) Screen NEGATIVE, U Benzodiazepines Scrn NEGATIVE, Urine Cocaine Screen NEGATIVE, U Cannabinoids Screen POSITIVE H, Ur Drug Screen Comment 12/14/22 07:09: POC Glucose 232 H 12/14/22 09:30: POC Glucose 175 H 12/14/22 10:35: Urine Opiates Screen NEGATIVE, Urine Methadone Screen NEGATIVE, Ur Barbiturates Screen NEGATIVE, Ur Phencyclidine Scrn NEGATIVE, Ur Amphetamines Screen NEGATIVE, MDMA (Ecstasy) Screen NEGATIVE, U Benzodiazepines Scrn NEGATIVE, Urine Cocaine Screen NEGATIVE, U Cannabinoids Screen POSITIVE H, Ur Drug Screen Comment 12/14/22 16:03: POC Glucose 127 H 12/14/22 22:16: POC Glucose 130 H 12/15/22 05:50: WBC 8.5, RBC 3.11 L, Hgb 8.0 L, Hct 25.5 L, MCV 82.0, MCH 25.7 L , MCHC 31.4 L, RDW Std Deviation 41.7, RDW Coeff of Osmin 14.0, Plt Count 171, MPV 10.0 Physical Exam Const alert, oriented x3 and no apparent distress HEENT normocephalic Head and Scalp: atraumatic Neck full ROM Resp normal respiratory effort Cardio regular rate GI normal to inspection, nondistended, normoactive bowel sounds GI Narrative: Uterus 2 cm below umbilicus, dressing clean and dry Back/Spine normal ROM Extremity normal to inspection Extremity Narrative: Minimal pedal edema Neuro no focal motor deficits and no sensory deficits noted Psych mental status grossly normal and affect normal Assessment & Plan (1) Delivery by section: PLAN: Postoperative day 1 status post repeat section. Complicated by acute on chronic anemia secondary to surgery, will plan to iron supplement on home-going. Patient also has a history of hypothyroidism, continue Synthroid, will need repeat labs . Type 1 diabetes. Blood sugars well controlled on new regimen postdelivery. Continue this home-going. Emphasized good glucose control for proper wound healing with patient. Reviewed postoperat rashi wound care and restrictions. Desires discharge home today, stable for discharge. 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
--- NOTE | 2022-12-15 06:28 | DCINST_ITS ---
Discharge Instructions Diet Discharge Diet: No restrictions Activity Discharge Activity: Return to Normal Activity and May Shower May resume sexual activity in: 4-6 weeks Weight Bearing Status: Weight bearing as tolerated Lifting Restrictions: No greater than 25 pounds Dressing / Incision Call your doctor if your incision/area has: Continuous Slow Oozing, Increased Redness and Swelling at the incision site Call your doctor if you observe: Fever of 101 or Higher, Change in Color, Inability to urinate, Using more than 1 pad per hour, Shortness of breath, Dizziness, Swelling in the ankles, Chest pain and Calf discomfort Remove Dressing in: 1 week Cleanse incision/area with: Soap & Water and Keep Dressing Clean & Dry Follow Up Care Please Follow Up With: Neville Abarca MD When: 2-week post operative and 6-week visit Test Results: Test results from this visit will be discussed in further detail at your follow- up appointment, if applicable. Discharge Plan Admission Admit Date/Time: 12/14/22 05:18 Primary Reason for Your Visit: Repeat section Attending Provider: Neville Abarca Primary Care Provider: Care Physician,No Primary Instructions Additional Instructions / Restrictions: Regular diet. Okay to shower. No tub baths for 2 weeks. No lifting over 25 pounds for 2 to 3 weeks. No intercourse for 6 to 8 weeks. Call if fevers, chills, chest pain, shortness of breath. Follow-up 2 weeks postoperatively. Maintain glucose control. Discharge Orders/Prescriptions Prescriptions: New oxycodone 5 mg tablet 5 mg PO Q6H PRN (Reason: pain (scale score 7-10)) 4 Days Qty: 16 0RF Continued (DME) blood sugar diagnostic Strip See Rx Instructions .ROUTE .MEDSUPPLY Qty: 100 6RF Rx Instructions: 3 times daily (DME) FreeStyle Luisa 2 [place] Misc See Rx Instructions .ROUTE .MEDSUPPLY Qty: 1 0RF Rx Instructions: As directed prenat.vits,mary ann,[id number] Tablet 1 tab PO DAILY insulin aspart U-100 [Novolog FlexPen U-100 Insulin] 100 unit/mL (3 mL) insulin pen SUBCUT Levemir FlexPen 100 unit/mL (3 mL) insulin pen 50 unit subcut DAILY (DME) FreeStyle Luisa 2 Sensor Kit See Rx Instructions .ROUTE .MEDSUPPLY Qty: 2 6RF Rx Instructions: 1 sensor q 14 days (DME) pen needle, diabetic [1st Tier Unifine Pentips] 32 gauge x 5/32 needle See Rx Instructions .ROUTE .MEDSUPPLY Qty: 150 6RF Rx Instructions: qid levothyroxine 88 mcg capsule 88 mcg PO DAILY Qty: 90 1RF insulin lispro 100 unit/mL insulin pen 20 unit SC TID Qty: 18 2RF Patient Comments: pt states she is on a sliding scale, unsure of sliding scale Changed insulin detemir U-100 100 unit/mL (3 mL) insulin pen 10 unit SC QHS Qty: 15 5RF Rx Instructions: 10 units in the morning and 20 units in the evening Referrals / Follow Up: Care Physician,No Primary [Primary Care Provider] - Disposition Disposition (needs filled in before D/C Order can be placed): Home, Self Care
[2022-12-15 08:22] VITALS: BP 90/55; PULSE 95; RESP 16; TEMP 36.2; O2SAT 97
[2022-12-15] MEDS: Insulin Lispro 100 UNIT/ML INSULN.PEN SC ×2 (09:45→12:42)
[2022-12-15 09:55] LABS: Bedside Glucose 138 mg/dL (74-106)
[2022-12-15] MEDS: Ibuprofen 600 MG Tablet PO (11:55)
[2022-12-15] MEDS: Senna/Docusate Sodium 1 Tablet PO (11:59)
[2022-12-15 13:14] LABS: Bedside Glucose 118 mg/dL (74-106)
[2022-12-15 14:05] VITALS: BP 95/62; PULSE 92; RESP 16; TEMP 36.4; O2SAT 97
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
== END 2022-12-15 16:55 | disposition home or self-care (01) | DRG 540 ==
PROVIDERS: Admitting Provider Obstetrics & Gynecology; Referring Provider Obstetrics & Gynecology; Visit Provider Obstetrics & Gynecology
PROC: 10D00Z1 Extraction of Products of Conception, Low, Open Approach (ICD-10-PCS; CPT 59514; principal; 2022-12-14 07:15)
DX: O24.02 Pre-existing type 1 diabetes mellitus, in childbirth (principal); O99.214 Obesity complicating childbirth; E06.3 Autoimmune thyroiditis; Z79.4 Long term (current) use of insulin; O76 Abnormality in fetal heart rate and rhythm complicating labor and delivery; Z3A.37 37 weeks gestation of pregnancy; O99.284 Endocrine, nutritional and metabolic diseases complicating childbirth; O34.211 Maternal care for low transverse scar from previous cesarean delivery; E66.3 Overweight; Z37.0 Single live birth; Z79.890 Hormone replacement therapy; Z79.899 Other long term (current) drug therapy; Z87.891 Personal history of nicotine dependence
CPT/HCPCS: 59050; 80307; 82962; 85025; 85027; 86780; 86850; 86900; 86901; 99221; J7120; A4216; G0378; J2405

== ENCOUNTER → 2024-02-16 | Outpatient (CLI) | payer MEDICAID, SELFPAY ==
[2024-02-16 17:08] LABS: Absolute Lymphocyte Count 2.19 X10^3/uL (0.83-4.51); Absolute Neutrophil Count 4.6 X10^3/uL (2.0-7.7); Basophil# 0.03 X10^3/uL; Basophil% 0.4 % (0-1); Eosinophil# 0.49 X10^3/uL; Eosinophils% 6.3 % (0-5); Hematocrit 38.2 % (37-47); Hemoglobin 12.1 g/dL (12.0-15.0); Lymphocyte # 2.19 X10^3/ul (0.83-4.51); Lymphocyte % 28.1 % (19-41); Mean Corp Hgb Conc 31.7 g/dL (32-36); Mean Corpuscular Hgb 25.6 pg (27.0-32.0); Mean Corpuscular Volume 80.9 fL (81-99); Mean Platelet Vol. 10.5 fl (6.2-12.0); Monocyte# 0.44 X10^3/uL; Monocyte% 5.6 % (0-10); NRBC Flagged by Analyzer 0 % (0-5); Neutrophil # 4.61 X10^3/uL (2.7-7.7); Neutrophil % 59.1 % (47-70); Platelet Count 336 K/mm3 (150-450); RBC Distribution Width CV 15.2 % (11.6-14.6); RBC Distribution Width SD 44.5 fl (35.1-43.9); Red Blood Count 4.72 M/mm3 (4.2-5.4); White Blood Count 7.8 K/mm3 (4.4-11.0)
[2024-02-16 17:27] LABS: Vitamin B12 500 pg/mL (211-911); Vitamin D,25 Hydroxy 16.2 ng/mL
[2024-02-16 17:35] LABS: ALB/GLOB Ratio 0.9 RATIO (0.9-2.4); AST(SGOT) 9 U/L (15-37); Alanine Aminotransfer ALT/SGPT 12 U/L (13-56); Albumin, Serum 3.4 g/dL (3.2-5.0); Alkaline Phosphatase 71 U/L (45-117); Anion Gap 4 (5-15); BUN 9 mg/dL (7-18); BUN/Creat Ratio 15.5 RATIO (10-20); Calcium,Total 9.1 mg/dL (8.5-10.1); Chloride 108 mmol/L (98-107); Creatinine, Serum 0.58 mg/dL (0.55-1.02); EST Glomerular Filtration Rate 130 mL/min (>60); Est Glom Filt Rate - Afr Amer 157 mL/min (>60); Globulin 3.6 g/dL (2.2-4.2); Glucose 78 mg/dL (74-106); Magnesium 1.7 mg/dL (1.6-2.6); Potassium 3.6 mmol/L (3.5-5.1); Sodium Level 139 mmol/L (136-145); T4 Free Direct 0.89 ng/dL (0.76-1.46)
== END | disposition home or self-care (01) ==
LOC: VSLAB 16:17
PROVIDERS: PCP Nurse Practitioner Family; Visit Provider Nurse Practitioner Family
DX: E10.8 Type 1 diabetes mellitus with unspecified complications (principal); G40.009 Localization-related (focal) (partial) idiopathic epilepsy and epileptic syndromes with seizures of localized onset, not intractable, without status epilepticus; E03.9 Hypothyroidism, unspecified
CPT/HCPCS: 36415; 80053; 82306; 82607; 83735; 84439; 84443; 85025

== ENCOUNTER 2024-05-23 12:59 | Emergency (ER) | payer MEDICAID, SELFPAY ==
[2024-05-23 13:00] VITALS: BP 138/119; PULSE 137; RESP 26; TEMP 36.2; BMI 31.5
[2024-05-23] MEDS: LORazepam 2 MG/ML Syringe 1 MG IV ×2 (13:01→13:07)
--- NOTE | 2024-05-23 13:05 | ED.RN ---
this RN emergently pulled 2mg syringe of ativan from accudose for seizure. 1mg given at 1301
--- NOTE | 2024-05-23 13:07 | EX.ED.DYSGE1 ---
HPI History of Present Illness Chief Complaint: Seizure Onset/Context/Timing Onset: Today Current Severity: Moderate Maximum Severity: Moderate Narrative Narrative: 29-year-old female history of diabetes and seizure disorder. Reportedly squshelli was called because she had an absence seizure at home. On arrival she was having tonic-clonic seizure. I was requested in the room by nursing staff. Patient was having a tonic-clonic seizure and was given a milligram of Ativan. Seizing is stopped she is now postictal. She is flailing about and could possibly harm herself. She will be given a second dose of Ativan. Her blood sugar per squad was over 200 prior to arrival. Patient at this time is unable to give any history. She is postictal. Prior similar symptoms: Yes Recent Illness/Hospitalization: No [facility] Medical History Thyroid disorder Overweight (BMI 25.0-29.9) Diabetic polyneuropathy associated with type 1 diabetes mellitus Polyneuropathy due to type 1 diabetes mellitus Type 1 diabetes Fibroadenoma of left breast Home Medications ?Medication ?Instructions ?Recorded ?Last Taken ?Type blood sugar diagnostic #100 ea 06/24/20 Unknown Rx flash glucose scanning reader #1 ea 12/15/20 Unknown Rx (FreeStyle Luisa 2 [place]) flash glucose sensor (FreeStyle #2 ea 12/03/21 Unknown Rx Luisa 2 Sensor kit) pen needle, diabetic 32 gauge x #150 ea 12/03/21 Unknown Rx /32 (1st Tier Unifine Pentips) levothyroxine 88 mcg capsule 88 mcg PO DAILY hypothyroidism #90 04/29/22 12/13/22 06:00 Rx caps prenat.vits,mary ann,[id number] 1 tab PO DAILY 04/29/22 12/13/22 09:00 History insulin aspart U-100 100 unit/mL subcut diabetes 12/14/22 12/13/22 21:00 History (3 mL) subcutaneous pen (Novolog FlexPen U-100 Insulin aspart) insulin detemir U-100 100 unit/mL 50 unit subcut DAILY diabetes 12/14/22 12/13/22 21:00 History (3 mL) subcutaneous pen (Levemir FlexPen) oxycodone 5 mg tablet 5 mg PO Q6H PRN pain (scale score 12/14/22 Unknown Rx 7-10) 4 days #16 tabs insulin detemir U-100 100 unit/mL 10 unit (0.1 mL) subcut QHS #15 mL 12/15/22 Unknown Rx (3 mL) subcutaneous pen insulin lispro 100 unit/mL 20 unit (0.2 mL) subcut TID #18 mL 01/12/23 Unknown Rx subcutaneous pen azithromycin 250 mg tablet 250 mg PO DAILY 5 days #5 tabs 05/23/24 Unknown Rx (Zithromax) Allergy/AdvReac Type Severity Reaction Status Date / Time No Known Allergies Allergy Verified 05/23/24 13:27 Family History Mother Thyroid disorder Surgical History Delivery by section Previous section Tubal ligation status S/P left breast biopsy (~03/02/19) S/P section Social History Smoking Status: Former smoker alcohol intake: never ROS ROS ED ROS Narrative Unable to this time due to her overall medical condition. Review of Systems ROS Unobtainable: other Details: Unable at this time due to her seizing and now postictal. EXAM Physical Exam Narrative Exam Narrative: 29-year-old female actively having a tonic-clonic seizure. Given a milligram of Ativan. Seizure stopped quickly. Now is postictal and flailing. Will be given a second dose of Ativan to try to calm her down to relax her. H EENT exam no signs of trauma. Moist mucous membranes. Bit her tongue. No lymphadenopathy. Lungs clear to auscultation bilaterally. Heart tachycardic no murmur. Chest wall ribs no deformity. Abdomen soft nondistended normal bowel sounds. No peritoneal signs. Moving all 4 extremities. Nontender. No deformity. Neurologically initially seizing and now postictal. Not responsive to verbal stimuli. Const Vital Signs: 05/23/24 13:00 05/23/24 13:20 05/23/24 14:00 Temperature 97.1 F L Temperature Source Temporal Pulse Rate 137 H 114 H 79 Respiratory Rate 26 H 20 H 16 Blood Pressure 138/119 H 111/71 99/49 L Blood Pressure Mean 125 84 65 Pulse Ox 97 96 Oxygen Delivery Method Room Air Room Air 05/23/24 15:00 Temperature Temperature Source Pulse Rate 78 Respiratory Rate 17 Blood Pressure 119/79 Blood Pressure Mean 92 Pulse Ox 100 Oxygen Delivery Method Room Air Positive well nourished and well developed; Negative for cachectic or contractures General Appearance ED: well developed; Negative for cachectic, contractures, cyanotic, diaphoretic, NAD or pallor Nutritional Appearance: Negative for cachectic HEENT Reports moist mucous membranes Neck no lymphadenopathy, supple and no JVD Chest Wall inspection of chest normal and palpation of chest normal Resp normal respiratory effort and clear to auscultation bilaterally Cardio regular rhythm, S1 normal heart sound, S2 normal heart sound and no murmurs; Negative for regular rate Rate: tachycardic GI normal to inspection, nondistended, normoactive bowel sounds, non-tender, non-distended and no masses Palpation: soft; Negative for tender, guarding or rebound tenderness present Back/Spine no CVA tenderness General Back: Negative for CVA tenderness Cervical Spine: Negative for cervical spine tenderness Thoracic Spine / Upper Back: Negative for thoracic spinal tenderness or paraspinal muscle tenderness Lumbar Spine / Lower Back: Negative for lumbar spinal tenderness Extremity normal to inspection General Extremety ED: Negative for edema or tenderness General Extremity: Negative for edema Neuro No oriented x3 Neuro Narrative: Initially seizing. Now postictal and unresponsive. Sensorium / Orientation: Negative for alert Psych Psych Narrative: Unable to assess initially. Skin no rashes or lesions noted and no wounds General Skin Exam: Negative for jaundice or pallor Lesions: No lesion noted Rashes: No rashes noted Trauma: Negative for abrasion Wounds: Negative for wounds noted MDM MDM MDM Narrative Medical decision making narrative: 29-year-old female reported history of diabetes and seizure. Active seizure. Treated with Ativan resolved. Currently postictal. Blood sugar en route was greater than 200. BMP being obtained. She has initially been given 1 dose of Ativan and then a second dose. She was given Versed. Repeat exam patient is much better at around 1:45 PM. The Ativan she was given Versed seems to have 1 stopped her seizing after the first Ativan and now calmed her down. She is in 4 point restraints but vital signs are stable and she is coming around. Repeat exam patient is doing well at 4 PM. Family is here with her. She is awake alert and talking. States she feels comfortable being discharged to home. I rechecked her temperature is 97.[address] was obtained due to her headache she had and it showed a sinusitis. She has had a recent URI. I will placed her on oral antibiotics. Zithromax Z-OLESYA. First dose given in the ER. Outpatient follow-up as needed. She is on seizure medications at home. They are comfortable with her being discharged to home. History & Record Review Discussion w/independent historian: Patient Lab Data Attestation: I reviewed the patient's lab results. Lab results narrative: Chemistries show sodium 134. Gap 12. BUN of 12 creatinine 1. Glucose 308. Labs: Laboratory Results - last 24 hr 05/23/24 05/23/24 12:50 13:21 Sodium 134 L Potassium 3.7 Chloride 101 Carbon Dioxide 21.0 Anion Gap 12 BUN 12 Creatinine 1.00 Estim Creat Clear Calc 96.34 Est GFR (MDRD) Af Amer 84 Est GFR (MDRD) Non-Af 70 BUN/Creatinine Ratio 12.0 Glucose 308 H Calcium 8.6 POC Glucose 347 H Radiography Diagnostic Testing: Clinical Impression(s) from Imaging Studies Brain CT 05/23/24 14:53 IMPRESSION: Sinusitis Electronically Signed: Cornell Simmons MD at 15:34 EST , Discharge Plan Triage Chief Complaint: Seizure ED Provider: Harsha Stevens Dx/Rx/DC Orders Clinical Impression: Seizure, Sinusitis, History of diabetes mellitus Instructions: ED Sinusitis (Not Bacterial), ED Seizure, Recurrent (Adult) Prescriptions: New azithromycin [Zithromax] 250 mg tablet 250 mg PO DAILY 5 Days Qty: 5 0RF No Action (DME) blood sugar diagnostic Strip See Rx Instructions .ROUTE .MEDSUPPLY Qty: 100 6RF Rx Instructions: 3 times daily (DME) FreeStyle Luisa 2 [place] Misc See Rx Instructions .ROUTE .MEDSUPPLY Qty: 1 0RF Rx Instructions: As directed prenat.vits,mary ann,[id number] Tablet 1 tab PO DAILY insulin aspart U-100 [Novolog FlexPen U-100 Insulin] 100 unit/mL (3 mL) insulin pen SUBCUT Levemir FlexPen 100 unit/mL (3 mL) insulin pen 50 unit subcut DAILY oxycodone 5 mg tablet 5 mg PO Q6H PRN (Reason: pain (scale score 7-10)) 4 Days Qty: 16 0RF insulin detemir U-100 100 unit/mL (3 mL) insulin pen 10 unit SC QHS Qty: 15 5RF Rx Instructions: 10 units in the morning and 20 units in the evening (DME) FreeStyle Luisa 2 Sensor Kit See Rx Instructions .ROUTE .MEDSUPPLY Qty: 2 6RF Rx Instructions: 1 sensor q 14 days (DME) pen needle, diabetic [1st Tier Unifine Pentips] 32 gauge x 5/32 needle See Rx Instructions .ROUTE .MEDSUPPLY Qty: 150 6RF Rx Instructions: qid levothyroxine 88 mcg capsule 88 mcg PO DAILY Qty: 90 1RF insulin lispro 100 unit/mL insulin pen 20 unit SC TID Qty: 18 2RF Patient Comments: pt states she is on a sliding scale, unsure of sliding scale Primary Care Provider: Mehnaz Flores Referrals: Mehnaz Flores, TREE INSPECTOR-C [Primary Care Provider] - 3-5 Days Activity Restrictions/Additional Instructions: Follow-up with your primary care provider in 3 to 5 days. Just to ensure you are improving. Return if feeling worse or recurrent seizures. The antibiotic Zithromax first dose given here. 1 pill a day until finished starting tomorrow. Tylenol or Motrin for pain. Continue your seizure medication. Obviously no driving. Print Language: Swedish Disposition Disposition: Home, Self Care
--- NOTE | 2024-05-23 13:09 | ED.RN ---
1mg ativan given at 1307 per verbal order from dr rasmussen
[2024-05-23] MEDS: Midazolam 2 MG/2 ML Syringe 1 MG IV (13:14)
--- NOTE | 2024-05-23 13:15 | ED.RN ---
1mg of versed given at 1314 per verbal order from dr rasmussen. Pt. screaming, thrashing, unable to redirect.
[2024-05-23 13:20] VITALS: BP 111/71; PULSE 114; RESP 20; O2SAT 97
[2024-05-23 13:39] LABS: Bedside Glucose 347 mg/dL (74-106)
--- NOTE | 2024-05-23 13:46 | ED.RN ---
Pt thrashing and screaming, pulling on IV and EKG leads. Attempting to climb out of bed. Soft restraints applied for pt and staff safety. Pt unable to be redirected and confused. Dr. Stevens @ bedside.
[2024-05-23 13:48] LABS: Anion Gap 12 (5-15); BUN 12 mg/dL (7-18); Calcium,Total 8.6 mg/dL (8.5-10.1); Chloride 101 mmol/L (98-107); EST Glomerular Filtration Rate 70 mL/min (>60); Est Glom Filt Rate - Afr Amer 84 mL/min (>60); Estimated Creatinine Clearance 96.34 ml/min; Glucose 308 mg/dL (74-106); Potassium 3.7 mmol/L (3.5-5.1); Sodium Level 134 mmol/L (136-145)
[2024-05-23 14:00] VITALS: BP 99/49; PULSE 79; RESP 16; O2SAT 96
[2024-05-23] MEDS: Ondansetron 4 MG/2 ML Vial IV (14:07)
--- NOTE | 2024-05-23 14:53 | CT_ITS ---
STUDY: CT BRAIN WITHOUT CONTRAST REASON FOR EXAM: Female, 29 years old. Headache post seizure RADIATION DOSAGE (If Supplied By Facility): CTDIvol = ( 44.99 ) mGy, DLP = ( 762.36 ) mGycm TECHNIQUE: Transaxial CT imaging of the brain was performed without administration of intravenous contrast material. Individualized dose optimization techniques were used for this CT. COMPARISON: No relevant priors. FINDINGS: Normal soft tissue structures. Normal calvarium. Normal size ventricles and extra-axial spaces for the patient''s age. Normal white matter tracts of the cerebral hemispheres. Normal basal ganglia and thalami. Normal brainstem. Normal cerebellum. There is no intracranial hemorrhage. There are no findings of an acute ischemic infarction. Opacification of the maxillary sinuses bilaterally worse on the right side as well as right ethmoid sinus. CT/Brain/Head without Contrast IMPRESSION: Sinusitis Electronically Signed: Cornell Simmons MD at 15:34 EST ,
[2024-05-23 15:00] VITALS: BP 119/79; PULSE 78; RESP 17; O2SAT 100
[2024-05-23] MEDS: Acetaminophen 500 MG Tablet 1000 MG PO (15:08)
[2024-05-23 16:00] VITALS: BP 119/79; PULSE 78; RESP 16; O2SAT 97
[2024-05-23] MEDS: Azithromycin 250 MG Tablet 500 MG PO (16:25)
== END 2024-05-23 17:23 | disposition home or self-care (01) ==
PROVIDERS: Emergency Provider Emergency Medicine; PCP Nurse Practitioner Family; Visit Provider Emergency Medicine
DX: G40.409 Other generalized epilepsy and epileptic syndromes, not intractable, without status epilepticus (principal); E10.42 Type 1 diabetes mellitus with diabetic polyneuropathy; Z79.4 Long term (current) use of insulin; J32.9 Chronic sinusitis, unspecified; E07.9 Disorder of thyroid, unspecified; Z79.890 Hormone replacement therapy; Z79.899 Other long term (current) drug therapy; Z87.891 Personal history of nicotine dependence
CPT/HCPCS: 70450; 80048; 82962; 96374; 96375; 99285; A4216; J2405

== ENCOUNTER 2024-07-04 13:29 | Emergency (ER) | payer MEDICAID, SELFPAY ==
[2024-07-04] VITALS (8 sets, daily range): BP systolic 121–131; BP diastolic 74–85; PULSE 72–123; RESP 16–20; TEMP 36.2; O2SAT 94–100; BMI 31.8
[2024-07-04] MEDS: Midazolam 2 MG/2 ML Syringe IV (13:41)
--- NOTE | 2024-07-04 13:53 | EX.ED.DYSGE1 ---
HPI <Dr. Pantera Cortez MD - Last Filed: 07/05/24 06:54> History of Present Illness Chief Complaint: Seizure Detail of Chief Complaint: History of absence seizure Informant: EMS (Paramedics states [id number] called.) Limited: other (Patient is thrashing about and uncertain if this is postictal or something else.) Onset/Context/Timing Onset: Today and Hours Context: Sudden Onset Timing: Intermittent Quality: Apparently her 1 arm went up according the paramedics. She clenched her te Location: Unknown Current Severity: Unable to determine because patient is not alert, awake or oriented Maximum Severity: Unable to determine Worsened by: Unknown. Reviewing her medication list indicates she is on no anticonvulsa Relieved by: Unknown Associated Symptoms Associated Symptoms: Unable to determine Narrative Narrative: Patient is a 29-year-old female. Patient was seen on May 23. That note was reviewed. She required Ativan and Versed at that time. Patient has history of absence seizure. Paramedics describe abnormal movement with clenching of teeth and vomiting. When she arrived she was noted to be incontinent of urine. No other history is available. [facility], [facility] <Dr. Pantera Cortez MD - Last Filed: 07/05/24 06:54> [facility] Medical History Thyroid disorder Overweight (BMI 25.0-29.9) Diabetic polyneuropathy associated with type 1 diabetes mellitus Polyneuropathy due to type 1 diabetes mellitus Type 1 diabetes Fibroadenoma of left breast Home Medications ?Medication ?Instructions ?Recorded ?Last Taken ?Type blood sugar diagnostic #100 ea 06/24/20 Unknown Rx flash glucose scanning reader #1 ea 12/15/20 Unknown Rx (FreeStyle Luisa 2 [place]) flash glucose sensor (FreeStyle #2 ea 12/03/21 Unknown Rx Luisa 2 Sensor kit) pen needle, diabetic 32 gauge x #150 ea 12/03/21 Unknown Rx (1st Tier Unifine Pentips) levothyroxine 88 mcg capsule 88 mcg PO DAILY hypothyroidism #90 04/29/22 12/13/22 06:00 Rx caps prenat.vits,mary ann,[id number] 1 tab PO DAILY 04/29/22 12/13/22 09:00 History insulin aspart U-100 100 unit/mL subcut diabetes 12/14/22 12/13/22 21:00 History (3 mL) subcutaneous pen (Novolog FlexPen U-100 Insulin aspart) insulin detemir U-100 100 unit/mL 50 unit subcut DAILY diabetes 12/14/22 12/13/22 21:00 History (3 mL) subcutaneous pen (Levemir FlexPen) oxycodone 5 mg tablet 5 mg PO Q6H PRN pain (scale score 12/14/22 Unknown Rx 7-10) 4 days #16 tabs insulin detemir U-100 100 unit/mL 10 unit (0.1 mL) subcut QHS #15 mL 12/15/22 Unknown Rx (3 mL) subcutaneous pen insulin lispro 100 unit/mL 20 unit (0.2 mL) subcut TID #18 mL 01/12/23 Unknown Rx subcutaneous pen drospirenone 3 mg-ethinyl 1 tab PO DAILY 07/04/24 Unknown History estradiol 0.03 mg tablet insulin glargine 100 unit/mL (3 42 unit subcut QHS 07/04/24 Unknown History mL) subcutaneous pen (Lantus Solostar U-100 Insulin) sertraline 50 mg tablet 25 mg PO DAILY 07/05/24 Unknown History topiramate 50 mg tablet 50 mg PO BID 07/05/24 Unknown History Allergy/AdvReac Type Severity Reaction Status Date / Time No Known Allergies Allergy Verified 07/04/24 13:47 Family History Mother Thyroid disorder Surgical History Delivery by section Previous section Tubal ligation status S/P left breast biopsy (~03/02/19) S/P section Social History Smoking Status: Former smoker alcohol intake: never ROS <Dr. Pantera Cortez MD - Last Filed: 07/05/24 06:54> ROS ED Review of Systems ROS Unobtainable: due to mental status EXAM <Dr. Pantera Cortez MD - Last Filed: 07/05/24 06:54> Physical Exam Const Vital Signs: 07/04/24 13:41 07/04/24 14:29 07/04/24 14:43 Temperature 97.2 F L Temperature Source Temporal Pulse Rate 123 H 87 87 Respiratory Rate 20 H 18 18 Blood Pressure 121/85 H 131/82 H 131/82 H Blood Pressure Mean 97 98 98 Pulse Ox 94 98 Oxygen Delivery Method Room Air Room Air 07/04/24 19:39 07/04/24 20:00 07/04/24 21:00 Temperature Temperature Source Pulse Rate 89 80 72 Respiratory Rate 19 H 17 18 Blood Pressure Blood Pressure Mean Pulse Ox 100 98 98 Oxygen Delivery Method Room Air Room Air Room Air 07/04/24 22:00 07/04/24 23:00 07/05/24 00:00 Temperature Temperature Source Pulse Rate 80 84 85 Respiratory Rate 18 16 19 H Blood Pressure 130/74 H 135/74 H Blood Pressure Mean 92 94 Pulse Ox 97 97 100 Oxygen Delivery Method Room Air Room Air Room Air 07/05/24 01:00 07/05/24 02:00 07/05/24 03:00 Temperature Temperature Source Pulse Rate 86 136 H 69 Respiratory Rate 17 20 H 17 Blood Pressure 108/71 108/74 Blood Pressure Mean 83 85 Pulse Ox 98 100 98 Oxygen Delivery Method Room Air Room Air Room Air 07/05/24 06:52 Temperature Temperature Source Pulse Rate 107 H Respiratory Rate 17 Blood Pressure 101/65 Blood Pressure Mean 77 Pulse Ox 97 Oxygen Delivery Method Room Air Positive well nourished and well developed Constitutional Narrative: BMI 31.9 General Appearance ED: well developed HEENT Reports dry mucous membranes HEENT Narrative: There is a significant hematoma noted of the right forehead. Pupils are equal round reactive. trauma Mouth ED: Yes dry mucous membranes Mouth: dry mucous membranes Eyes PERRL Eyes Narrative: There is no subconjunctival hemorrhage. Unable to assess eye movement because patient is not cooperating. General Eye ED: Negative for pale conjunctiva or scleral icterus Neck no lymphadenopathy and supple Resp normal respiratory effort and clear to auscultation bilaterally Cardio regular rhythm, S1 normal heart sound, S2 normal heart sound and no murmurs Rate: tachycardic GI normal to inspection, nondistended, normoactive bowel sounds, non-tender, non-distended and no masses; Negative for hepatosplenomegaly GI Narrative: Abdominal exam is limited due to the fact that she is not awake, alert or oriented. Back/Spine Back/Spine Narrative: Inspection of the back is normal. Extremity normal to inspection Extremity Narrative: There is no clubbing or cyanosis or obvious deformity. Neuro No oriented x3 Neuro Narrative: Patient is thrashing. She is not directable. She did receive 2 mg of Versed after reading Dr. Stevens's note. She still is not cooperative and thrashing. Psych Psych Narrative: Unable to determine Skin Skin Narrative: Hematoma right forehead with abrasion <Dr. Marcelo Gutiérrez DO - Last Filed: 07/05/24 00:05> Physical Exam Const Vital Signs: 07/04/24 13:41 07/04/24 14:29 07/04/24 14:43 Temperature 97.2 F L Temperature Source Temporal Pulse Rate 123 H 87 87 Respiratory Rate 20 H 18 18 Blood Pressure 121/85 H 131/82 H 131/82 H Blood Pressure Mean 97 98 98 Pulse Ox 94 98 Oxygen Delivery Method Room Air Room Air 07/04/24 19:39 07/04/24 20:00 07/04/24 21:00 Temperature Temperature Source Pulse Rate 89 80 72 Respiratory Rate 19 H 17 18 Blood Pressure Blood Pressure Mean Pulse Ox 100 98 98 Oxygen Delivery Method Room Air Room Air Room Air 07/04/24 22:00 07/04/24 23:00 07/05/24 00:00 Temperature Temperature Source Pulse Rate 80 84 85 Respiratory Rate 18 16 19 H Blood Pressure 130/74 H 135/74 H Blood Pressure Mean 92 94 Pulse Ox 97 97 100 Oxygen Delivery Method Room Air Room Air Room Air 07/05/24 01:00 07/05/24 02:00 07/05/24 03:00 Temperature Temperature Source Pulse Rate 86 136 H 69 Respiratory Rate 17 20 H 17 Blood Pressure 108/71 108/74 Blood Pressure Mean 83 85 Pulse Ox 98 100 98 Oxygen Delivery Method Room Air Room Air Room Air 07/05/24 06:52 Temperature Temperature Source Pulse Rate 107 H Respiratory Rate 17 Blood Pressure 101/65 Blood Pressure Mean 77 Pulse Ox 97 Oxygen Delivery Method Room Air MDM <Dr. Pantera Cortez MD - Last Filed: 07/05/24 06:54> MDM MDM Narrative Medical decision making narrative: CT of the head was ordered to evaluate for intracranial bleed in light of the obvious trauma to her head. Will obtain appropriate blood work. Once family member arrive we will ask if she is on any anticonvulsant since there is no anticonvulsant on the med list that is available for my review as of 1357. Patient's care was transferred to the evening physician pending evaluation by case management. History & Record Review Additional record(s) reviewed:: Prior ED visit and Prior labs Lab Data Attestation: I reviewed the patient's lab results. Lab results narrative: White count is elevated 21,000. There is a shift. H&H is normal. Electrolyte panel is remarkable for a CO2 of 18. Anion gap is normal. Blood sugar is elevated at 392. Labs: Laboratory Results - last 24 hr 07/04/24 07/04/24 07/04/24 13:55 19:06 22:15 WBC 21.0 H RBC 4.48 Hgb 12.2 Hct 37.4 MCV 83.5 MCH 27.2 MCHC 32.6 RDW Std Deviation 43.3 RDW Coeff of Osmin 14.3 Plt Count 366 MPV 11.2 Immature Gran % (Auto) 1.200 H Neut % (Auto) 92.1 H Lymph % (Auto) 3.1 L Trinity % (Auto) 3.4 Eos % (Auto) 0.0 Baso % (Auto) 0.2 Absolute Neuts (auto) 19.4 H Absolute Lymphs (auto) 0.65 L Nucleated RBC % 0 Sodium 136 Potassium 4.9 Chloride 106 Carbon Dioxide 18.0 L Anion Gap 12 BUN 14 Creatinine 0.94 Estim Creat Clear Calc 103.05 Est GFR (MDRD) Af Amer 91 Est GFR (MDRD) Non-Af 75 BUN/Creatinine Ratio 14.9 Glucose 392 H Calcium 8.8 Serum , Qual NEGATIVE Urine Color Urine Clarity Urine pH Ur Specific [place] U Specif Grav (Refrac) Urine Protein Urine Glucose (UA) Urine Ketones Urine Occult Blood Urine Nitrite Urine Bilirubin Urine Urobilinogen Ur Leukocyte Esterase Urine RBC Urine WBC Ur Squamous Epith Cells Ur Transition Epith Cell Ur Renal Epithelial Cell Calcium Oxalate Crystal Uric Acid Crystals Triple Phos Crystals Other Crystals Amorphous Sediment Urine Bacteria Hyaline Casts Fine Granular Casts Coarse Granular Casts Waxy Casts RBC Casts WBC Casts Urine Mucus Urine Trichomonas Urine Yeast Urine Opiates Screen Urine Methadone Screen Ur Barbiturates Screen Ur Phencyclidine Scrn Ur Amphetamines Screen MDMA (Ecstasy) Screen U Benzodiazepines Scrn Urine Cocaine Screen U Cannabinoids Screen Ur Drug Screen Comment Ethyl Alcohol < 3.0 POC Glucose 410 H 07/04/24 07/04/24 07/05/24 22:36 22:59 00:07 WBC RBC Hgb Hct MCV MCH MCHC RDW Std Deviation RDW Coeff of Osmin Plt Count MPV Immature Gran % (Auto) Neut % (Auto) Lymph % (Auto) Trinity % (Auto) Eos % (Auto) Baso % (Auto) Absolute Neuts (auto) Absolute Lymphs (auto) Nucleated RBC % Sodium Potassium Chloride Carbon Dioxide Anion Gap BUN Creatinine Estim Creat Clear Calc Est GFR (MDRD) Af Amer Est GFR (MDRD) Non-Af BUN/Creatinine Ratio Glucose Calcium Serum , Qual Urine Color Cancelled Yellow Urine Clarity Cancelled Clear Urine pH Cancelled 5.0 Ur Specific [place] Cancelled 1.020 U Specif Grav (Refrac) Cancelled Urine Protein Cancelled Negative Urine Glucose (UA) Cancelled 1000 H Urine Ketones Cancelled 150 A* Urine Occult Blood Cancelled 25 H Urine Nitrite Cancelled Negative Urine Bilirubin Cancelled Negative Urine Urobilinogen Cancelled Normal Ur Leukocyte Esterase Cancelled Negative Urine RBC Cancelled 0-5 SEEN Urine WBC Cancelled 0 SEEN Ur Squamous Epith Cells Cancelled 0 SEEN Ur Transition Epith Cell Cancelled Ur Renal Epithelial Cell Cancelled Calcium Oxalate Crystal Cancelled Uric Acid Crystals Cancelled Triple Phos Crystals Cancelled Other Crystals Cancelled Amorphous Sediment Cancelled Urine Bacteria Cancelled RARE Hyaline Casts Cancelled Fine Granular Casts Cancelled Coarse Granular Casts Cancelled Waxy Casts Cancelled RBC Casts Cancelled WBC Casts Cancelled Urine Mucus Cancelled 0 SEEN Urine Trichomonas Cancelled Urine Yeast Cancelled Urine Opiates Screen NEGATIVE Urine Methadone Screen NEGATIVE Ur Barbiturates Screen NEGATIVE Ur Phencyclidine Scrn NEGATIVE Ur Amphetamines Screen NEGATIVE MDMA (Ecstasy) Screen NEGATIVE U Benzodiazepines Scrn POSITIVE H Urine Cocaine Screen NEGATIVE U Cannabinoids Screen POSITIVE H Ur Drug Screen Comment Ethyl Alcohol POC Glucose 214 H 07/05/24 06:13 WBC RBC Hgb Hct MCV MCH MCHC RDW Std Deviation RDW Coeff of Osmin Plt Count MPV Immature Gran % (Auto) Neut % (Auto) Lymph % (Auto) Trinity % (Auto) Eos % (Auto) Baso % (Auto) Absolute Neuts (auto) Absolute Lymphs (auto) Nucleated RBC % Sodium Potassium Chloride Carbon Dioxide Anion Gap BUN Creatinine Estim Creat Clear Calc Est GFR (MDRD) Af Amer Est GFR (MDRD) Non-Af BUN/Creatinine Ratio Glucose Calcium Serum , Qual Urine Color Urine Clarity Urine pH Ur Specific [place] U Specif Grav (Refrac) Urine Protein Urine Glucose (UA) Urine Ketones Urine Occult Blood Urine Nitrite Urine Bilirubin Urine Urobilinogen Ur Leukocyte Esterase Urine RBC Urine WBC Ur Squamous Epith Cells Ur Transition Epith Cell Ur Renal Epithelial Cell Calcium Oxalate Crystal Uric Acid Crystals Triple Phos Crystals Other Crystals Amorphous Sediment Urine Bacteria Hyaline Casts Fine Granular Casts Coarse Granular Casts Waxy Casts RBC Casts WBC Casts Urine Mucus Urine Trichomonas Urine Yeast Urine Opiates Screen Urine Methadone Screen Ur Barbiturates Screen Ur Phencyclidine Scrn Ur Amphetamines Screen MDMA (Ecstasy) Screen U Benzodiazepines Scrn Urine Cocaine Screen U Cannabinoids Screen Ur Drug Screen Comment Ethyl Alcohol POC Glucose 220 H Radiography Diagnostic Testing: Clinical Impression(s) from Imaging Studies Brain CT 07/04/24 14:27 IMPRESSION: 1. No acute intracranial abnormalities are demonstrated. 2. Mild left maxillary sinus inflammation. Reading Location: [facility] CT of the head without contrast reviewed. There is evidence of an extracranial subcutaneous hematoma on the right. There is no evidence of epidural hematoma, subdural hematoma, traumatic subarachnoid hemorrhage or intraparenchymal contusion. There is chronic changes noted in the right and left maxillary sinus with a retention cyst noted on the right and some chronic changes noted on the left. Management Discussion w/another healthcare provider: family support worker/Case management Treatment and Re-Evaluation :: Patient is aware of her environment. She will not speak. She has a startle response. She will look at me when I speak to her. My professional opinion this is nonconvulsive and motor activity most likely due to psychogenic seizure disorder. Plan is to discharge to home. Comments:: When patient was asked if she wants to go home or go to a psychiatric facility there was no response. Since patient has a startle response and does track my voice when I talk in my opinion this is due to a underlying psychiatric disorder. Case management was consulted for psychiatric placement <Dr. Marcelo Gutiérrez, DO - Last Filed: 07/05/24 00:05> [facility] Lab Data Labs: Laboratory Results - last 24 hr 02/19/25 02/19/25 02/19/25 13:55 19:06 22:15 WBC 21.0 H RBC 4.48 Hgb 12.2 Hct 37.4 MCV 83.5 MCH 27.2 MCHC 32.6 RDW Std Deviation 43.3 RDW Coeff of Osmin 14.3 Plt Count 366 MPV 11.2 Immature Gran % (Auto) 1.200 H Neut % (Auto) 92.1 H Lymph % (Auto) 3.1 L Trinity % (Auto) 3.4 Eos % (Auto) 0.0 Baso % (Auto) 0.2 Absolute Neuts (auto) 19.4 H Absolute Lymphs (auto) 0.65 L Nucleated RBC % 0 Sodium 136 Potassium 4.9 Chloride 106 Carbon Dioxide 18.0 L Anion Gap 12 BUN 14 Creatinine 0.94 Estim Creat Clear Calc 103.05 Est GFR (MDRD) Af Amer 91 Est GFR (MDRD) Non-Af 75 BUN/Creatinine Ratio 14.9 Glucose 392 H Calcium 8.8 Serum , Qual NEGATIVE Urine Color Urine Clarity Urine pH Ur Specific [place] U Specif Grav (Refrac) Urine Protein Urine Glucose (UA) Urine Ketones Urine Occult Blood Urine Nitrite Urine Bilirubin Urine Urobilinogen Ur Leukocyte Esterase Urine RBC Urine WBC Ur Squamous Epith Cells Ur Transition Epith Cell Ur Renal Epithelial Cell Calcium Oxalate Crystal Uric Acid Crystals Triple Phos Crystals Other Crystals Amorphous Sediment Urine Bacteria Hyaline Casts Fine Granular Casts Coarse Granular Casts Waxy Casts RBC Casts WBC Casts Urine Mucus Urine Trichomonas Urine Yeast Urine Opiates Screen Urine Methadone Screen Ur Barbiturates Screen Ur Phencyclidine Scrn Ur Amphetamines Screen MDMA (Ecstasy) Screen U Benzodiazepines Scrn Urine Cocaine Screen U Cannabinoids Screen Ur Drug Screen Comment Ethyl Alcohol < 3.0 POC Glucose 410 H 07/04/24 07/04/24 07/05/24 22:36 22:59 00:07 WBC RBC Hgb Hct MCV MCH MCHC RDW Std Deviation RDW Coeff of Osmin Plt Count MPV Immature Gran % (Auto) Neut % (Auto) Lymph % (Auto) Trinity % (Auto) Eos % (Auto) Baso % (Auto) Absolute Neuts (auto) Absolute Lymphs (auto) Nucleated RBC % Sodium Potassium Chloride Carbon Dioxide Anion Gap BUN Creatinine Estim Creat Clear Calc Est GFR (MDRD) Af Amer Est GFR (MDRD) Non-Af BUN/Creatinine Ratio Glucose Calcium Serum , Qual Urine Color Cancelled Yellow Urine Clarity Cancelled Clear Urine pH Cancelled 5.0 Ur Specific [place] Cancelled 1.020 U Specif Grav (Refrac) Cancelled Urine Protein Cancelled Negative Urine Glucose (UA) Cancelled 1000 H Urine Ketones Cancelled 150 A* Urine Occult Blood Cancelled 25 H Urine Nitrite Cancelled Negative Urine Bilirubin Cancelled Negative Urine Urobilinogen Cancelled Normal Ur Leukocyte Esterase Cancelled Negative Urine RBC Cancelled 0-5 SEEN Urine WBC Cancelled 0 SEEN Ur Squamous Epith Cells Cancelled 0 SEEN Ur Transition Epith Cell Cancelled Ur Renal Epithelial Cell Cancelled Calcium Oxalate Crystal Cancelled Uric Acid Crystals Cancelled Triple Phos Crystals Cancelled Other Crystals Cancelled Amorphous Sediment Cancelled Urine Bacteria Cancelled RARE Hyaline Casts Cancelled Fine Granular Casts Cancelled Coarse Granular Casts Cancelled Waxy Casts Cancelled RBC Casts Cancelled WBC Casts Cancelled Urine Mucus Cancelled 0 SEEN Urine Trichomonas Cancelled Urine Yeast Cancelled Urine Opiates Screen NEGATIVE Urine Methadone Screen NEGATIVE Ur Barbiturates Screen NEGATIVE Ur Phencyclidine Scrn NEGATIVE Ur Amphetamines Screen NEGATIVE MDMA (Ecstasy) Screen NEGATIVE U Benzodiazepines Scrn POSITIVE H Urine Cocaine Screen NEGATIVE U Cannabinoids Screen POSITIVE H Ur Drug Screen Comment Ethyl Alcohol POC Glucose 214 H 07/05/24 06:13 WBC RBC Hgb Hct MCV MCH MCHC RDW Std Deviation RDW Coeff of Osmin Plt Count MPV Immature Gran % (Auto) Neut % (Auto) Lymph % (Auto) Trinity % (Auto) Eos % (Auto) Baso % (Auto) Absolute Neuts (auto) Absolute Lymphs (auto) Nucleated RBC % Sodium Potassium Chloride Carbon Dioxide Anion Gap BUN Creatinine Estim Creat Clear Calc Est GFR (MDRD) Af Amer Est GFR (MDRD) Non-Af BUN/Creatinine Ratio Glucose Calcium Serum , Qual Urine Color Urine Clarity Urine pH Ur Specific [place] U Specif Grav (Refrac) Urine Protein Urine Glucose (UA) Urine Ketones Urine Occult Blood Urine Nitrite Urine Bilirubin Urine Urobilinogen Ur Leukocyte Esterase Urine RBC Urine WBC Ur Squamous Epith Cells Ur Transition Epith Cell Ur Renal Epithelial Cell Calcium Oxalate Crystal Uric Acid Crystals Triple Phos Crystals Other Crystals Amorphous Sediment Urine Bacteria Hyaline Casts Fine Granular Casts Coarse Granular Casts Waxy Casts RBC Casts WBC Casts Urine Mucus Urine Trichomonas Urine Yeast Urine Opiates Screen Urine Methadone Screen Ur Barbiturates Screen Ur Phencyclidine Scrn Ur Amphetamines Screen MDMA (Ecstasy) Screen U Benzodiazepines Scrn Urine Cocaine Screen U Cannabinoids Screen Ur Drug Screen Comment Ethyl Alcohol POC Glucose 220 H Radiography Diagnostic Testing: Clinical Impression(s) from Imaging Studies Brain CT 07/04/24 14:27 IMPRESSION: 1. No acute intracranial abnormalities are demonstrated. 2. Mild left maxillary sinus inflammation. Reading Location: [facility] Treatment and Re-Evaluation Comments:: When patient was asked if she wants to go home or go to a psychiatric facility there was no response. Since patient has a startle response and does track my voice when I talk in my opinion this is due to a underlying psychiatric disorder. Case management was consulted for psychiatric placement Care of the patient was turned over to me pending evaluation by social sciences research scientist and placement. Family came in and wanted to take her home. Family was advised that patient would benefit from psychiatric placement. Family was advised they would have to take responsibility for the patient and maintain her safety. Family is agreeable to have the patient placed in a psychiatric facility. Patient became combative and attempted to bite staff. Patient was placed in restraints. Patient was medicated with Benadryl, Haldol, and Ativan. Patient was still combative 4 hours later and required continuation of restraints. Patient was also given a repeat dose of Benadryl, Haldol, and Versed. Patient's blood sugar was 410 and required treatment with insulin. Patient was given her normal dose of 20 units of Humalog. Patient will be transferred to psychiatric facility when a bed becomes available. Care of the patient will be turned over to the nighttime physician pending transfer. 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, Type 1 diabetes, Adult BMI 31.0-31.9 kg/sq m, Conversion reaction Instructions: How Seizures Affect the Body Prescriptions: No Action (DME) blood sugar diagnostic Strip See Rx Instructions .ROUTE .MEDSUPPLY Qty: 100 6RF Rx Instructions: 3 times daily (DME) FreeStyle Luisa 2 [place] Misc See Rx Instructions .ROUTE .MEDSUPPLY Qty: 1 0RF Rx Instructions: As directed prenat.vits,mary ann,[id number] Tablet 1 tab PO DAILY insulin aspart U-100 [Novolog FlexPen U-100 Insulin] 100 unit/mL (3 mL) insulin pen SUBCUT Levemir FlexPen 100 unit/mL (3 mL) insulin pen 50 unit subcut DAILY oxycodone 5 mg tablet 5 mg PO Q6H PRN (Reason: pain (scale score 7-10)) 4 Days Qty: 16 0RF insulin detemir U-100 100 unit/mL (3 mL) insulin pen 10 unit SC QHS Qty: 15 5RF Rx Instructions: 10 units in the morning and 20 units in the evening drospirenone-ethinyl estradiol 3-0.03 mg tablet 1 tab PO DAILY insulin glargine [Lantus Solostar U-100 Insulin] 100 unit/mL (3 mL) insulin pen 42 unit subcut QHS sertraline 50 mg tablet 25 mg PO DAILY topiramate 50 mg tablet 50 mg PO BID (DME) FreeStyle Luisa 2 Sensor Kit See Rx Instructions .ROUTE .MEDSUPPLY Qty: 2 6RF Rx Instructions: 1 sensor q 14 days (DME) pen needle, diabetic [1st Tier Unifine Pentips] 32 gauge x 5/32 needle See Rx Instructions .ROUTE .MEDSUPPLY Qty: 150 6RF Rx Instructions: qid levothyroxine 88 mcg capsule 88 mcg PO DAILY Qty: 90 1RF insulin lispro 100 unit/mL insulin pen 20 unit SC TID Qty: 18 2RF Patient Comments: pt states she is on a sliding scale, unsure of sliding scale Primary Care Provider: Mehnaz Flores Referrals: Mehnaz Flores, [facility] [Primary Care Provider] - 3-5 Days Print Language: Maori Disposition Disposition: Psychiatric Hospital or Unit
[2024-07-04] MEDS: Ondansetron 4 MG/2 ML Vial IV (14:13)
[2024-07-04 14:16] LABS: Absolute Lymphocyte Count 0.65 X10^3/uL (0.83-4.51); Absolute Neutrophil Count 19.4 X10^3/uL (2.0-7.7); Basophil# 0.05 X10^3/uL; Basophil% 0.2 % (0-1); Hematocrit 37.4 % (37-47); Hemoglobin 12.2 g/dL (12.0-15.0); Lymphocyte # 0.65 X10^3/ul (0.83-4.51); Lymphocyte % 3.1 % (19-41); Mean Corp Hgb Conc 32.6 g/dL (32-36); Mean Corpuscular Hgb 27.2 pg (27.0-32.0); Mean Corpuscular Volume 83.5 fL (81-99); Mean Platelet Vol. 11.2 fl (6.2-12.0); Monocyte# 0.71 X10^3/uL; Monocyte% 3.4 % (0-10); NRBC Flagged by Analyzer 0 % (0-5); Neutrophil # 19.36 X10^3/uL (2.7-7.7); Neutrophil % 92.1 % (47-70); Platelet Count 366 K/mm3 (150-450); RBC Distribution Width CV 14.3 % (11.6-14.6); RBC Distribution Width SD 43.3 fl (35.1-43.9); Red Blood Count 4.48 M/mm3 (4.2-5.4)
--- NOTE | 2024-07-04 14:27 | CT_ITS ---
EXAM: CT BRAIN WITHOUT CONTRAST CLINICAL HISTORY: Head trauma with acute altered mental status. COMPARISON: CT brain dated 05/23/2024. TECHNIQUE: Contiguous axial scans of 3.75 mm slice thicknesses with sagittal and coronal reconstruction images. One or more dose reduction techniques were utilized (e.g., automated exposure control, adjustment of mA and/or kv according to patient size, use of iterative reconstruction technique). FINDINGS: No intraparenchymal hemorrhage. No abnormal areas of encephalomalacia. No mass effect or midline shift. Cline-white matter differentiation is normal. Ventricles and cisterns are appropriate size for patient's age. No extra-axial fluid collections. Cerebellum and posterior fossa unremarkable. Mild mucoperiosteal thickening, left maxillary sinus. Mastoid air cells are normal. Calvarium unremarkable. Soft tissues unremarkable. CT/Brain/Head without Contrast IMPRESSION: 1. No acute intracranial abnormalities are demonstrated. 2. Mild left maxillary sinus inflammation. Reading Location: [facility]
[2024-07-04 14:33] LABS: Anion Gap 12 (5-15); BUN 14 mg/dL (7-18); BUN/Creat Ratio 14.9 RATIO (10-20); Calcium,Total 8.8 mg/dL (8.5-10.1); Chloride 106 mmol/L (98-107); Creatinine, Serum 0.94 mg/dL (0.55-1.02); EST Glomerular Filtration Rate 75 mL/min (>60); Est Glom Filt Rate - Afr Amer 91 mL/min (>60); Estimated Creatinine Clearance 103.05 ml/min; Glucose 392 mg/dL (74-106); Potassium 4.9 mmol/L (3.5-5.1); Sodium Level 136 mmol/L (136-145)
--- NOTE | 2024-07-04 15:59 | ED.RN ---
THIS NURSE ATTEMPTED TO CALL PTS MOTHER WHO IS IN CHART CONTACT. PHONE CALL WAS SENT TO [facility] AFTER ONE RING ALL 3 TIMES. SOCIAL WORK IS IN WITH PT TO DISCUSS GOING HOME OR PSYCH EVAL
[2024-07-04] MEDS: Ziprasidone IM 20 MG/ML VIAL IM (16:24)
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
[2024-07-04] MEDS: Lorazepam 2 MG/ML WCH Syringe IM (19:09)
--- NOTE | 2024-07-04 19:23 | ED.RN ---
THIS NURSE PERFORMED A STRAIGHT STICK TO OBTAIN TWO LAB COLLECTIONS ORDERED ON PT. TWO NURSES AND THE SITTER HAD TO HOLD THE ARM OF THE PT TO GET THE TWO VIALS. PT HAS BEEN DISORIENTED AND IS IN THE PROCESS OF FINDING PLACEMENT FOR PSYCH EVALUATION/ADMISSION. AFTER PT BECAME VERY AGGRESSIVE AND BEGAN SWINGING HER FIST AT STAFF. 5 STAFF MEMBERS HELD PT DOWN WHILE SHE THRASHED AND TRIED TO PUNCH STAFF. THIS NURSE WENT TO DR BARONE ASKING FOR MORE IM MEDS FOR PT, PT BEGAN TO BE MORE AGGRESSIVE AND NOT COMPLYING OR CALMING DOWN. DR BARONE DENIED GEODON BUT GAVE VERBAL ORDER FOR 2MG OF ATIVAN IM. BEFORE THIS NURSE RETURNED WITH THE MEDICATION THE PT BIT NURSE RUTHY CASTRO IN THE RIGHT POSTERIOR ARM ABOVE THE ELBOW, BREAKING THE SKIN. SECURITY WAS CALLED TO THE BEDSIDE AND OTHER STAFF CAME TO THE BEDSIDE. PT WAS PLACED IN VIOLENT RESTRAINTS AND MEDICATION WAS ADMINISTERED. 1900 STAFF WAS AT THE BEDSIDE WHERE REPORT WAS GIVEN. DECISION TO MOVE PT FROM BED 3 TO BED 5 WAS MADE. DOCUMENTATION FOR RESTRAINTS WAS COMPLETED. NURSE RUTHY CASTRO FILED A REPORT FOR HER INJURY WITH ANTOINE PRATHER AND PICS WERE TAKEN.
[2024-07-04 19:39] LABS: Internal QC Validated? YES +Cl - CLEAR BKGD; Pregnancy, Serum, hCG Quali. NEGATIVE Negative
[2024-07-04 19:41] LABS: Alcohol, Blood (Medical)-Serum < 3.0 mg/dL
[2024-07-04] MEDS: Haloperidol Lactate 5 MG/ML Vial IM ×2 (20:05→23:30)
[2024-07-04] MEDS: DiphenhydrAMINE 50 MG/ML Syringe IV (20:05)
--- NOTE | 2024-07-04 21:39 | CM.ED ---
Social Work SW contacted [facility] who confirmed they have a female bed available. Referral sent. Plan: Inpatient psychiatric hospitalization pending acceptance. Evelyn Cuadra, SOCIAL AND POLITICAL STUDIES PROFESSOR, COIL REPAIR TECHNICIAN
--- NOTE | 2024-07-04 22:27 | CM.ED ---
Social Work SW called [facility] to see if determination was made on patient. SW was notified that they were still reviewing. Contact number for Crisis given to call with decision. Crisis called and referral information was sent to continue working on inpatient psychiatric placement for patient. Patients mother, Criss, was called and updated that patient was still in ED and that Crisis would be working on placement throughout the evening. Evelyn Cuadra, BILINGUAL SOCIAL WORKER, COILED TUBING SUPERVISOR
--- NOTE | 2024-07-04 22:30 | ED.RN ---
Pt still thrashing around in bed and refusing to communicate with staff. x4 restraints in place d/t pt safety and staff.
[2024-07-04] MEDS: Insulin Lispro 100 UNIT/ML INSULN.PEN 20 UNIT SC (22:47)
[2024-07-04 22:48] LABS: Bedside Glucose 410 mg/dL (74-106)
[2024-07-04 23:05] LABS: Mucous, Urine 0 SEEN /hpf (<or=2+); Squamous Epithelial Cells - UA 0 SEEN /hpf (5-10); White Blood Cells 0 SEEN /hpf (0-5)
[2024-07-04 23:09] LABS: Color, Urine Yellow (Yellow); Glucose, Dipstick 1000 mg/dl (Normal); Leukocyte Esterase-Dipstick Negative /ul (Negative); Nitrite-Dipstick Negative (Negative); Occult Blood-Urine 25 /ul (Negative); Protein-Dipstick Negative (Negative); Urine Bilirubin Dipstick Negative (Negative); Urine Clarity Clear (Clear); Urine Urobilinogen Normal (Normal)
--- NOTE | 2024-07-04 23:13 | ED.RN ---
Attempted to ask pt home meds. Pt looks at this nurse rolls her eyes and looks away. Refuses to answer questions. Attempted to call pts mom. Was able to verify thyroid meds and thinks Lantus order is correct. Gave update on pts condition and were she is pending at. Requesting call in the morning with update.
[2024-07-04 23:16] LABS: Ketone-Dipstick 150 mg/dl (Negative)
[2024-07-04 23:25] LABS: Bacteria RARE /hpf (None Seen); Red Blood Cells-Urine 0-5 SEEN /hpf (0-5)
[2024-07-04] MEDS: Midazolam 2 MG/2 ML Syringe IM (23:29)
[2024-07-04 23:30] LABS: Amphetamine Urine NEGATIVE (<1000 ng/mL); Barbiturate Urine VISTA NEGATIVE (< 200 ng/mL); Benzodiazepine Urine VISTA POSITIVE (< 200 ng/mL); Cocaine Urine NEGATIVE (< 300 ng/mL); Ecstacy Urine VISTA NEGATIVE (< 500 ng/mL); Methadone Urine VISTA NEGATIVE (< 300 ng/mL); Opiates Urine NEGATIVE (< 300 ng/mL); PCP Urine NEGATIVE (< 25 ng/mL); THC Urine VISTA POSITIVE (< 50 ng/mL); Vista UDS pH Range 5
[2024-07-04] MEDS: DiphenhydrAMINE 50 MG/ML Syringe 25 MG IM (23:30)
[2024-07-05] VITALS: BP 135/74; PULSE 85; RESP 19; O2SAT 100
[2024-07-05 00:26] LABS: Bedside Glucose 214 mg/dL (74-106)
[2024-07-05 01:00] VITALS: PULSE 86; RESP 17; O2SAT 98
[2024-07-05] MEDS: Ketamine HCl 500 MG/5 ML Vial 400 MG IM (01:37)
[2024-07-05 02:00] VITALS: BP 108/71; PULSE 136; RESP 20; O2SAT 100
--- NOTE | 2024-07-05 02:20 | ED.RN ---
PT ACCEPTED AT [facility] DR. TAI [id number] [phone]. JT SINGH 8AM
[2024-07-05 03:00] VITALS: BP 108/74; PULSE 69; RESP 17; O2SAT 98
--- NOTE | 2024-07-05 06:26 | ED.RN ---
Attempted to call report x2 with no answer to unit.
[2024-07-05 06:32] LABS: Bedside Glucose 220 mg/dL (74-106)
[2024-07-05 06:52] VITALS: BP 101/65; PULSE 107; RESP 17; O2SAT 97
[2024-07-05 07:49] VITALS: BP 107/69; PULSE 84; RESP 16; TEMP 36.3; O2SAT 99
--- NOTE | 2024-07-05 07:49 | ED.RN ---
CALLED PTS MOTHER AND UPDATED HER THAT THE PT WAS LEAVING AND THE FACILITY SHE WAS GOING TO.
== END 2024-07-05 07:51 ==
PROVIDERS: Emergency Medicine; Emergency Provider Emergency Medicine; PCP Nurse Practitioner Family; Visit Provider Emergency Medicine
DX: F44.5 Conversion disorder with seizures or convulsions (principal); E10.42 Type 1 diabetes mellitus with diabetic polyneuropathy; Z79.4 Long term (current) use of insulin; E10.65 Type 1 diabetes mellitus with hyperglycemia; Z78.1 Physical restraint status; R11.10 Vomiting, unspecified; E06.3 Autoimmune thyroiditis; E03.9 Hypothyroidism, unspecified; Z79.890 Hormone replacement therapy; Z79.899 Other long term (current) drug therapy; Z87.891 Personal history of nicotine dependence; S00.83XA Contusion of other part of head, initial encounter; X58.XXXA Exposure to other specified factors, initial encounter; Z91.148 Patient's other noncompliance with medication regimen for other reason
CPT/HCPCS: 70450; 80048; 80307; 81001; 82077; 82962; 84703; 85025; 96372; 96374; 96375; 99285; A4216; J2405; J3486

== ENCOUNTER → 2024-10-04 | Outpatient (CLI) | payer MEDICAID, SELFPAY ==
[2024-10-04 16:18] LABS: Basophil# 0.04 X10^3/uL; Basophil% 0.6 % (0-1); Eosinophil# 0.38 X10^3/uL; Eosinophils% 5.6 % (0-5); Hematocrit 40.5 % (37-47); Lymphocyte % 28.1 % (19-41); Mean Corp Hgb Conc 32.1 g/dL (32-36); Mean Corpuscular Hgb 27.4 pg (27.0-32.0); Mean Corpuscular Volume 85.4 fL (81-99); Mean Platelet Vol. 10.9 fl (6.2-12.0); Monocyte# 0.44 X10^3/uL; Monocyte% 6.5 % (0-10); NRBC Flagged by Analyzer 0 % (0-5); Neutrophil # 3.97 X10^3/uL (2.7-7.7); Neutrophil % 58.9 % (47-70); Platelet Count 270 K/mm3 (150-450); RBC Distribution Width CV 13.9 % (11.6-14.6); RBC Distribution Width SD 43.7 fl (35.1-43.9); Red Blood Count 4.74 M/mm3 (4.2-5.4); White Blood Count 6.8 K/mm3 (4.4-11.0)
[2024-10-04 17:36] LABS: Microalbumin,Random Urine < 12.0 mg/L (NO RANGE EST.)
[2024-10-04 17:38] LABS: ALB/GLOB Ratio 1.4 RATIO (0.9-2.4); AST(SGOT) 12 U/L (<=31); Alanine Aminotransfer ALT/SGPT 11 U/L (<=34); Albumin, Serum 3.9 g/dL (3.5-5.0); Alkaline Phosphatase 59 U/L (35-104); Anion Gap 15 (5-15); BUN 10 mg/dL (4-19); BUN/Creat Ratio 16.3 RATIO (10-20); Calcium,Total 8.7 mg/dL (7.6-11.0); Carbon Dioxide 18.9 mmol/L (21.0-32.0); Chloride 99 mmol/L (98-108); Cholesterol 159 mg/dL (<=200); Creatinine, Serum 0.62 mg/dL (0.70-1.20); EST Glomerular Filtration Rate 123 (>60); Globulin 2.8 g/dL (2.2-4.2); Glucose 322 mg/dL (70-99); High Density Lipoprotein 42 mg/dL; Low Density Lipoprotein Calc. 89 mg/dL; Potassium 4.5 mmol/L (3.3-5.1); Protein, Total 6.7 g/dL (5.9-8.4); Sodium Level 133 mmol/L (133-145); Total Bilirubin 0.23 mg/dL (0.00-1.30); Triglycerides 141 mg/dL; Very Low Density Lipoprotein 28 mg/dL (5-40); cholesterol:hdl ratio screen 3.83
[2024-10-04 17:39] LABS: Vitamin B12 474 pg/mL (180-914); Vitamin D,25 Hydroxy 17.5 ng/mL (30-100)
== END | disposition home or self-care (01) ==
LOC: VSLAB 15:27
PROVIDERS: PCP Nurse Practitioner Family; Visit Provider Nurse Practitioner Family
DX: E10.8 Type 1 diabetes mellitus with unspecified complications (principal); E03.8 Other specified hypothyroidism
CPT/HCPCS: 36415; 80053; 80061; 82043; 82306; 82607; 84439; 84443; 85025